=== PATIENT | female | born 1985 | race Caucasian/White ===

== ENCOUNTER 2019-06-06 20:11 | Observation (INO) | payer MEDICAID, SELFPAY ==
[2019-06-06 20:15] VITALS: BP 151/98; PULSE 125; RESP 26; TEMP 36.4; O2SAT 99
--- NOTE | 2019-06-06 20:39 | ED.GENADUL_ITS ---
Discharge Plan Disposition Condition: Fair Discharge Details Chief Complaint: Abd Prob Admit Date/Time: 06/07/19 01:29 Admit Provider: Agueda Dunne Attending Provider: Agueda Dunne Primary Care Provider: Nicole Jones ED Provider: Dawna Willis Discharge Instructions Activity:: Activity as Tolerated Equipment/Supplies:: No Equipment Needed Diet:: As Tolerated Discharge Orders Discharge Orders: Discharge Order (Routine); Ordered 06/07/19 Ordered By: Agueda Dunne Medical Decision Making Is a 33-year-old woman who has struggled with ovarian pain for several years. She is status post hysterectomy. Patient [facility] and began to have sharp severe right lower quadrant abdominal pain which doubled her over. Patient reports 1 hour of persistent pain which prompted her evaluation in the emergency room. Patient denies fevers or chills. She does report mild nausea associated with the pain but denies vomiting. Denies vaginal discharge or bleeding. Denies urinary urgency or frequency. Patient reports she has been struggling with lower abdominal pain for which she had a recent ultrasound on the fourth of this month. Patient reports ultrasound did reveal bilateral ovarian cysts the largest of approximately 4 cm was noted on the left. On exam patient has moderate right lower quadrant abdominal pain with palpation. Patient's appendix is still present. Labs were ordered. Morphine provided for patient's complaints of pain, in addition to Zofran for nausea Patient noted to have a moderate leukocytosis which is increased compared to the baseline labs we have present mild shift present. Patient presented quite tachycardic with a heart rate of 125. After IV fluid she did have some improvement in her heart rate into the high 90s. Patient CT was unremarkable for appendicitis however does reveal 2.5 cm ovarian cyst on the right with no associated fat stranding or obvious tubo-ovarian abscess. Patient required 2 additional doses of Morphine with mild control of her pain. Patient's pelvic exam reveals a vaginal pouch with mild white discharge with bilateral ovarian pain with palpation. Patient's exam is somewhat limited given the lack of her anatomy present. Cultures were obtained. Spoke with [employer] Dr. Dr. Dunne regarding patient's case and findings. She is offered admission to the patient for overnight observation given the persistence of her pain. Spoke with patient who consents to admission to the hospital for pain management and reevaluation with [facility] doctor. HPI General Date/Time Provider Initiated Documentation: 06/06/19 20:20 . HPI Narrative: 33-year-old patient presents for right lower quadrant abdominal pain which escalated in the last hour. Patient reports pain doubling her over. Patient reports known ovarian cysts. This pain feels similar. Patient reports she did have an ultrasound May 22 revealing bilateral ovarian cysts. Patient reports no fever, chills mild nausea due to pain no vomiting. Denies ill feeling. Patient reports she did have the the ultrasound as she is been struggling with lower abdominal discomfort. Patient reports minimal radiation to her back. No associated vaginal discharge or bleeding. Patient is status post hysterectomy which was done to help alleviate ovarian pain. Patient denies urinary urgency, frequency or dysuria. No other concerns or complaints Related Data Home Medications Medication Instructions Recorded Confirmed acetaminophen [Pain Relief] 2 tab PO PRN PRN 09/25/14 06/06/19 albuterol sulfate [Proventil HFA] 1 inh INHALATION PRN PRN 09/25/14 06/06/19 ibuprofen 800 mg PO TID PRN PRN 09/25/14 06/06/19 buprenorphine-naloxone [Suboxone] 12 mg PO DAILY 10/21/17 06/06/19 pantoprazole 40 mg PO DAILY 10/21/17 06/06/19 varenicline [Chantix] 1 mg PO DAILY 06/06/19 06/06/19 trazodone 50 mg PO QHS 06/07/19 06/07/19 Allergies Allergy/AdvReac Type Severity Reaction Status Date / Time doxycycline Allergy Swelling/Ed Unverified 06/06/19 20:21 brynn Penicillins Allergy Anaphylaxsi Unverified 06/06/19 20:21 s azithromycin AdvReac Nausea Unverified 06/06/19 20:21 calcium carbonate [From DHEA] AdvReac Swelling/Ed Unverified 06/06/19 20:21 brynn calcium phosphate,dibasic AdvReac Swelling/Ed Unverified 06/06/19 20:21 [From DHEA] brynn latex AdvReac Skin Rash Unverified 06/06/19 20:21 nitrofurantoin AdvReac muscles Unverified 06/06/19 20:21 [From Macrobid] stiffen up all over body nitrofurantoin AdvReac muscles Unverified 06/06/19 20:21 macrocrystalline stiffen up [From Macrobid] all over body prasterone (DHEA) [From DHEA] AdvReac Swelling/Ed Unverified 06/06/19 20:21 brynn silver AdvReac Skin Rash Unverified 06/06/19 20:21 [From Tegaderm AG Mesh] tramadol AdvReac Urinary Unverified 06/06/19 20:21 retention General Stated Complaint: [facility] [facility] JAN: 3 Review of Systems Review of Systems ROS Unobtainable: All systems reviewed & are unremarkable except as noted in HPI and below Constitutional Constitutional: Denies chills, Denies fever(s) and Denies headache(s) ENT Ears, Nose, Mouth, and Throat: Denies headache(s) Gastrointestinal Gastrointestinal: Reports abdominal pain, Denies diarrhea, Reports loose stools, Reports nausea and Denies vomiting Neurologic Neurologic: Denies headache(s) [facility] Medical History Asthma (Chronic) Bipolar disease, chronic (Acute) Patient has been hospitalized for suicidal ideation the past currently not taking any medications. Is on disability for mental health issues Chronic pelvic pain in female (Acute) S/P TVH at [facility] [place] 2015. Gabapentin 300 mg 3 times a day as needed Headache (Acute) Imitrex as needed Hearing loss (Acute) Right side conduction loss cholecystectomy treated with titanium insert History of opioid abuse (Acute) Take Suboxone 12 mg SL daily x3yrs. Weekly dosing given at [facility] in [facility] PTSD (post-traumatic stress disorder) (Acute) Currently not in counseling Right knee pain (Acute) Awaiting ACL reconstruction Tobacco use (Acute) Has used Chantix off-and-on. Surgical History (Updated 06/07/19 @ 01:56 by Agueda Dunne MD) H/O right knee surgery (Acute) H/O total vaginal hysterectomy (Acute) [facility] [place] 2015 for menorrhagia and dysmenorrhea. Ovaries conserved. Diagnosis adenomyosis History of cholecystectomy (Chronic) History of laparoscopy (Chronic) 2012. 6 cm right ovarian cyst drained History of tubal ligation (Chronic) [facility] Hx of tonsillectomy (Chronic) Social History (Updated 06/07/19 @ 01:58 by Agueda Dunne MD) Smoking/Tobacco Use Status: Current every day Tobacco Type: cigarettes Quit status: considering quitting Counseling given: provider counseling and other Details: Taking Chantix in order to quit Alcohol Intake: never Drug use: Current Sobriety Substance use type: former substance user Date of last use: 3 years. Suboxone 12 mg daily no relapses Household members: other Details: Has roommate. Boyfriend is named Brian. All 4 children adopted out. Number of Children: 4 current occupation: Unemployed. Receives disability for mental health issues Do you feel safe at home: Yes Do you feel safe in your relationship?: Yes Exam Narrative Exam Narrative: CONST: Healthy appearing patient, in no acute distress. Well hydrated. Alert and alert. NECK: Normal visual inspection. FROM. Trachea midline. No Midline tenderness. CHEST: Normal insepection of the chest. RESP: Normal respiratory effort. Speaking full sentences. No cough. No audible wheezing. No retractions. Breath sounds clear and equal bilaterally, no rhonchi or rales CARDIO: No JVD. No murmurs or rubs Abdomen; bowel sounds present in all 4 quadrants. Abdomen is soft, mild right lower quadrant tenderness present. No rebound or guarding : External exam is normal. Patient has some mild white vaginal discharge present, cervix is absent. Mild bilateral ovarian tenderness with palpation but no appreciable masses identified. Back; no CVA tenderness MUSCULOSKELETAL: Normal Gait. FROM of all extremities. SKIN: Normal. Dry. No rashes. NEURO: Alert and awake. Speech clear. PSYCH: Normal affect. Cooperative. Course Vital Signs Vital signs: Vital Signs Temperature 36.4 C L 06/06/19 20:15 Pulse 125 H 06/06/19 20:15 Respiratory Rate 26 H 06/06/19 20:15 Blood Pressure 151/98 H 06/06/19 20:15 Pulse Oximetry 99 06/06/19 20:15 Temperature 36.4 C L 06/06/19 20:15 Temperature Source Skin 06/06/19 20:15 Pulse 125 H 06/06/19 20:15 Respiratory Rate 26 H 06/06/19 20:15 Respiratory Effort 06/06/19 20:24 Blood Pressure 151/98 H 06/06/19 20:15 Blood Pressure Position Sitting 06/06/19 20:15 Pulse Oximetry 99 06/06/19 20:15 Oxygen Delivery Method Room Air 06/06/19 20:15 Oxygen Flow Rate 0 06/06/19 20:15 Pain Level 9 06/06/19 20:15
[2019-06-06 20:53] LABS: Bilirubin Negative (Negative); Blood Negative (Negative); Clarity Clear (Clear); Glucose Negative (Negative); Ketones Negative (Negative); Leukocyte Esterase Negative (Negative); Nitrite Negative (Negative); Urobilinogen 0.2 EU/dL (Up TO 0.2)
[2019-06-06] MEDS: Ondansetron 4 MG/2 ML VIAL IVP (21:09)
[2019-06-06 21:10] LABS: Abs Immature Grans 0.08 k/cumm (0.0-0.09); Absolute Eosinophil Count 0.21 k/cumm (0.0-0.7); Absolute Monocyte Count 0.74 k/cumm (0.11-0.7); Basophils % 0.2; Eosinophils % 1.1; HCT 38.6 % (36.0-46.0); HGB 13.2 g/dL (12.0-15.5); Immature Grans % 0.4; Lymphocytes % 24.9; Mean Corp. HGB Concentration 34.2 g/dL (32.0-36.0); Mean Corpuscular Hemoglobin 28.8 pg (27.0-33.0); Mean Corpuscular Volume 84.3 fL (80-95); Mean Platelet Volume 10.3 fL (8.0-11.0); Monocytes % 3.9; Neutrophils % 69.5; Platelet Count 140 x1000/uL (130-400); RBC 4.58 m/cumm (4.00-5.20); RBC Distribution Width 12.8 % (11.7-14.6); White Blood Cell Count 18.99 k/cumm (4.4-10.8)
[2019-06-06 21:12] LABS: Absolute Basophil Count 0.04 k/cumm (0.0-0.2); Absolute Lymphocyte Count 4.73 k/cumm (1.2-3.4)
[2019-06-06 21:23] LABS: ALT 14 U/L (14-59); AST 20 U/L (15-37); Albumin 3.6 g/dL (3.4-5.0); Alkaline Phosphatase 50 U/L (46-116); Anion Gap 10.3 mmol/L (3-11); BUN 13 mg/dL (7-18); Bilirubin, Total 0.3 mg/dL (0.2-1.0); CO2 26.7 mmol/L (21.0-32.0); CREATININE 0.75 mg/dL (0.55-1.02); Calcium 9.1 mg/dL (8.5-10.1); Chloride 102 mmol/L (98-107); Glucose 94 mg/dL (70-100); Sodium 139 mmol/L (136-145); Total Protein 7.4 g/dL (6.4-8.2)
--- NOTE | 2019-06-06 21:35 | DI.CT_ITS ---
EXAM: CT ABDOMEN PELVIS W CLINICAL HISTORY: pain TECHNIQUE: CT examination of the abdomen and pelvis was performed with bolus infusion of 100 cc of O mnipaque 350. COMPARISON: ABD PELVIS WITH CONTRAST from 07/01/2015 FINDINGS: Images obtained through the lung bases are unremarkable. Liver, spleen and pancreas appear normal. Gallbladder has been removed. No biliary dilatation seen. Adrenals and kidneys are unremarkable wi th an incidental presumed tiny left renal cyst. Abdominal aorta is of normal diameter and no major v ascular abnormality is seen. No significant abdominal wall hernia seen. No significant abdominal or pelvic adenopathy. Appendix is normal. No evidence of diverticulitis or bowel obstruction. There is a low-attenuation, 25 millimeter, right ovarian lesion consistent with cyst or dominant foll icle. No free fluid identified in the pelvis. IMPRESSION: No evidence of acute intra-abdominal process.
[2019-06-06] MEDS: Normal Saline 1,000 ML 1000 ML IV (21:58)
[2019-06-06] MEDS: Omnipaque 350 MG/ML 100 ML BTL IJ (21:59)
[2019-06-06 22:27] VITALS: O2SAT 99
--- NOTE | 2019-06-06 22:36 | DI.VRAD_ITS ---
PROCEDURE INFORMATION: Exam: CT Abdomen And Pelvis With Contrast Exam date and time: 06/06/2019 9:50 PM Clinical history: 33 years old, female; Abdominal pain; Localized; Lower TECHNIQUE: Imaging protocol: Computed tomography of the abdomen and pelvis with intravenous contrast. COMPARISON: CT ABD PELVIS WITH CONTRAST 07/01/2015 10:30 AM FINDINGS: Liver: Normal. No mass. Gallbladder and bile ducts: Status post cholecystectomy. Pancreas: Normal. No ductal dilation. Spleen: Normal. No splenomegaly. Adrenals: Normal. No mass. Kidneys and ureters: Normal. No hydronephrosis. Stomach and bowel: Unremarkable. No obstruction. No mucosal thickening. Appendix: No evidence of appendicitis. Intraperitoneal space: Unremarkable. No free air. No significant fluid collection. Vasculature: Unremarkable. No abdominal aortic aneurysm. Lymph nodes: Unremarkable. No enlarged lymph nodes. Bladder: Unremarkable as visualized. Reproductive: Status post hysterectomy. 2.5 cm right ovarian cyst suggested. Bones/joints: Unremarkable. No acute fracture. Soft tissues: Unremarkable. IMPRESSION: 2.5 cm right ovarian cyst suggested. Dictated and Authenticated by: Edi Lin MD. Ordering:AD Toney MD
[2019-06-06 22:44] VITALS: BP 125/79; PULSE 98; RESP 18; O2SAT 97
[2019-06-06 23:44] LABS: Lactate 0.6 mmol/L (0.6-1.4)
[2019-06-07 00:06] VITALS: BP 121/72; PULSE 105; RESP 18; O2SAT 97
--- NOTE | 2019-06-07 00:54 | NUR.NOTE ---
06/07/19 @ 0050-Dr Adele Chaves, [facility] bedside. Nursing Note:
[2019-06-07] MEDS: HYDROmorphone 2 MG/ML VIAL 1 MG IVP (01:17)
[2019-06-07 01:19] VITALS: BP 137/85; PULSE 99; RESP 22; O2SAT 98
[2019-06-07] MEDS: Ondansetron 4 MG/2 ML VIAL (01:28)
--- NOTE | 2019-06-07 01:36 | HPE_ITS ---
Date of service: 06/07/19 Time of Service: 01:36 Assessment and Plan Assessment and plan (1) Chronic pelvic pain in female: Status: Acute Assessment and plan: Will admit for pain control and will follow CBC and vital signs (2) Tobacco use: Status: Acute Assessment and plan: Chantix while hospitalized (3) Bipolar disease, chronic: Status: Acute Assessment and plan: Patient declines gabapentin which she uses at home but makes her sleepy so she does not use it consistently (4) History of opioid abuse: Status: Acute Assessment and plan: We will continue buprenorphine 12 mg sublingual daily History of Present Illness History of Present Illness Chief Complaint: Acute exacerbation of chronic pelvic pain Narrative: Patient is a 33-year-old female with a history of pelvic pain attributed to ovulatory discomfort who experienced a abrupt onset this afternoon that she reports brought me to my knees. She was at an outside event and proceeded to travel to [facility] she is the closest hospital. She normally receives her care at [facility]. In the emergency department she received IV morphine without significant improvement in her discomfort. Her pulse on presentation was in the 120 range and a CBC showed WBC of approximately 19,000. Lactate was normal. CT of the abdomen showed normal appendix and a 2.5 cm right ovarian cyst patient is status post hysterectomy. No evidence of pelvic abscess or pelvic masses on imaging. Decision was made to admit the patient for pain control and serial CBCs. Review of Systems Constitutional Constitutional: Reports difficulty sleeping (Trazodone as needed), Reports headache(s) and Reports weight gain (Has declined DepoProvera in the past secondary to weight gain) ENT Ears, Nose, Mouth, and Throat: Reports headache(s) Cardiovascular Cardiovascular: Reports system reviewed and no additional complaints, except as docu Respiratory Respiratory: Reports cough (Occasional) Genitourinary Genitourinary: Reports pelvic pain (Right greater than left side) Musculoskeletal Musculoskeletal: Reports arthralgias (Right knee joint) Integumentary/Breasts Skin/Breast: Reports system reviewed and no additional complaints, except as docu Neurologic Neurologic: Reports headache(s) Psychiatric Psychiatric: Reports anxiety, Reports depression and Reports other (States bipolar symptoms are stable. Has substance use counselor-[facility]) [facility] Medical History Asthma (Chronic) Bipolar disease, chronic (Acute) Patient has been hospitalized for suicidal ideation the past currently not taking any medications. Is on disability for mental health issues Chronic pelvic pain in female (Acute) [place] [facility] [place]. Gabapentin 300 mg 3 times a day as needed Headache (Acute) Imitrex as needed Hearing loss (Acute) Right side conduction loss cholecystectomy treated with titanium insert History of opioid abuse (Acute) Take Suboxone 12 mg SL daily x3yrs. Weekly dosing given at [facility] in [place] PTSD (post-traumatic stress disorder) (Acute) Currently not in counseling Right knee pain (Acute) Awaiting ACL reconstruction Tobacco use (Acute) Has used Chantix off-and-on. Surgical History (Updated 06/07/19 @ 01:56 by Agueda Dunne MD) H/O right knee surgery (Acute) H/O total vaginal hysterectomy (Acute) [facility] [place] for menorrhagia and dysmenorrhea. Ovaries conserved. Diagnosis adenomyosis History of cholecystectomy (Chronic) History of laparoscopy (Chronic) 2012. 6 cm right ovarian cyst drained History of tubal ligation (Chronic) [facility] Hx of tonsillectomy (Chronic) Social History (Updated 06/07/19 @ 01:58 by Agueda Dunne MD) Smoking/Tobacco Use Status: Current every day Tobacco Type: cigarettes Quit status: considering quitting Counseling given: provider counseling and other Details: Taking Chantix in order to quit Alcohol Intake: never Drug use: Current Sobriety Substance use type: former substance user Date of last use: 3 years. Suboxone 12 mg daily no relapses Household members: other Details: Has roommate. Boyfriend is named Brian. All 4 children adopted out. Number of Children: 4 current occupation: Unemployed. Receives disability for mental health issues Do you feel safe at home: Yes Do you feel safe in your relationship?: Yes Meds Home Medications and Allergies Home Medications Medication Instructions Recorded Confirmed Type acetaminophen [Pain Relief] 2 tab PO PRN PRN 09/25/14 06/06/19 History albuterol sulfate [Proventil HFA] 1 inh INHALATION PRN PRN 09/25/14 06/06/19 History ibuprofen 800 mg PO TID PRN PRN 09/25/14 06/06/19 History buprenorphine-naloxone [Suboxone] 12 mg PO DAILY 10/21/17 06/06/19 History pantoprazole 40 mg PO DAILY 10/21/17 06/06/19 History varenicline [Chantix] 1 mg PO DAILY 06/06/19 06/06/19 History Allergies Allergy/AdvReac Type Severity Reaction Status Date / Time doxycycline Allergy Swelling/Ed Unverified 06/06/19 20:21 brynn Penicillins Allergy Anaphylaxsi Unverified 06/06/19 20:21 s azithromycin AdvReac Nausea Unverified 06/06/19 20:21 calcium carbonate [From DHEA] AdvReac Swelling/Ed Unverified 06/06/19 20:21 brynn calcium phosphate,dibasic AdvReac Swelling/Ed Unverified 06/06/19 20:21 [From DHEA] brynn latex AdvReac Skin Rash Unverified 06/06/19 20:21 nitrofurantoin AdvReac muscles Unverified 06/06/19 20:21 [From Macrobid] stiffen up all over body nitrofurantoin AdvReac muscles Unverified 06/06/19 20:21 macrocrystalline stiffen up [From Macrobid] all over body prasterone (DHEA) [From DHEA] AdvReac Swelling/Ed Unverified 06/06/19 20:21 brynn silver AdvReac Skin Rash Unverified 06/06/19 20:21 [From Tegaderm AG Mesh] tramadol AdvReac Urinary Unverified 06/06/19 20:21 retention Exam Narrative Exam Narrative: Pelvic exam performed by TORY Mathias. No focal masses tenderness right greater than left side Const General: in distress moderate (Grimaces when moving in bed tender abdomen) and anxious (Tearful during parts of the exam) Nutritional Appearance: overweight Orientation: alert, awake and oriented x3 Neck Neck: normal visual inspection Resp Effort & Inspection: normal respiratory effort Auscultation: clear to auscultation bilaterally Cardio Rate: regular rate Rhythm: regular rhythm GI Inspection: normal to inspection Palpation: soft, no hepatosplenomegaly and tender in the LLQ and in the RLQ; with no rebound tenderness Percussion: normal to percussion General: No CVA tenderness External Female Exam: external appearance normal Bimanual Exam- Vagina & Uterus: other (Performed by PA) Back/Spine/Pelvis Back: No no CVA tenderness Pelvis: no pain with anterior-posterior compression Skin General skin exam: no rashes or lesions noted (Multiple tattoos) Extrem General: normal to inspection, full ROM and normal capillary refill Psych Appearance: well kempt Mental Status: mental status grossly normal Speech and Movement: speech and movement normal Mood: anxious mood and dysthymic mood Affect: sad and anxious affect Attitude: cooperative Thought Process: normal Thought Content: normal Insight: fair Results Labs Result diagrams: 06/06/19 21:00 06/06/19 21:00 Labs: Laboratory Results - last 24 hr 06/06/19 06/06/19 06/06/19 20:45 21:00 21:00 WBC 18.99 H RBC 4.58 Hgb 13.2 Hct 38.6 MCV 84.3 MCH 28.8 MCHC 34.2 RDW 12.8 Plt Count 140 MPV 10.3 Immature Gran % 0.4 Neutrophils % 69.5 Lymphocytes % 24.9 Monocytes % 3.9 Eosinophils % 1.1 Basophils % 0.2 Absolute Neutrophils 13.20 H Absolute Lymphocytes 4.73 H Absolute Monocytes 0.74 H Absolute Eosinophils 0.21 Absolute Basophils 0.04 Sodium 139 Potassium 4.0 Chloride 102 Carbon Dioxide 26.7 Anion Gap 10.3 BUN 13 Creatinine 0.75 Estimated GFR/1.73 m2 >= 60.00 Glucose 94 Lactate Calcium 9.1 Total Bilirubin 0.3 AST 20 ALT 14 Alkaline Phosphatase 50 Total Protein 7.4 Albumin 3.6 Urine Color Yellow Urine Clarity Clear Urine pH 6.0 Ur Specific [place] 1.010 Urine Protein Negative Urine Ketones Negative Urine Blood Negative Urine Nitrite Negative Urine Bilirubin Negative Urine Urobilinogen 0.2 Ur Leukocyte Esterase Negative Urine Glucose Negative 06/06/19 23:30 WBC RBC Hgb Hct MCV MCH MCHC RDW Plt Count MPV Immature Gran % Neutrophils % Lymphocytes % Monocytes % Eosinophils % Basophils % Absolute Neutrophils Absolute Lymphocytes Absolute Monocytes Absolute Eosinophils Absolute Basophils Sodium Potassium Chloride Carbon Dioxide Anion Gap BUN Creatinine Estimated GFR/1.73 m2 Glucose Lactate 0.6 Calcium Total Bilirubin AST ALT Alkaline Phosphatase Total Protein Albumin Urine Color Urine Clarity Urine pH Ur Specific [place] Urine Protein Urine Ketones Urine Blood Urine Nitrite Urine Bilirubin Urine Urobilinogen Ur Leukocyte Esterase Urine Glucose Last Vital Signs Temp 97.5 F L 06/06/19 20:15 Pulse 99 H 06/07/19 01:19 Resp 22 06/07/19 01:19 BP 137/85 06/07/19 01:19 Pulse Ox 98 06/07/19 01:19
[2019-06-07 02:23] VITALS: BP 132/68; PULSE 105; RESP 16; O2SAT 98
[2019-06-07 02:36] VITALS: BP 126/78; PULSE 102; RESP 16; TEMP 37.2; O2SAT 97
[2019-06-07] MEDS: Ibuprofen 600 MG TAB PO (03:12)
[2019-06-07] MEDS: Normal Saline Flush 10 ML SYR IVP (03:12)
[2019-06-07] MEDS: HYDROmorphone 2 MG TAB PO (03:12)
[2019-06-07] MEDS: Lactated Ringers 1,000 ML 125 ML IV ×2 (03:13→10:40)
[2019-06-07] MEDS: traZODone 50 MG TAB PO (03:38)
[2019-06-07 07:41] LABS: HGB 12.4 g/dL (12.0-15.5); Mean Corp. HGB Concentration 33.5 g/dL (32.0-36.0); Mean Corpuscular Hemoglobin 28.5 pg (27.0-33.0); Mean Corpuscular Volume 85.1 fL (80-95); Mean Platelet Volume 9.6 fL (8.0-11.0); Platelet Count 321 x1000/uL (130-400); RBC 4.35 m/cumm (4.00-5.20)
--- NOTE | 2019-06-07 11:11 | DSE_ITS ---
Date of service: 06/07/19 Time of Service: 11:11 DS: Diagnosis Discharge Diagnosis (1) Chronic pelvic pain in female: Status: Acute (2) Tobacco use: Status: Acute (3) Bipolar disease, chronic: Status: Acute (4) History of opioid abuse: Status: Acute Discharge Plan Disposition Patient Disposition: HOME Condition: Fair Discharge Details Chief Complaint: Abd Prob Reason For Visit: ACUTE PELVIC PAIN Admit Date/Time: 06/07/19 01:29 Admit Provider: Agueda Dunne Attending Provider: Agueda Dunne Primary Care Provider: Nicole Jones ED Provider: Dawna Willis Hospital Course Hospital Course: Patient was admitted through the [facility] emergency room early in the morning on 06/07/2019 with leukocytosis and right lower quadrant pain. Patient has a history of chronic pelvic pain and was noted to have a 2.5 cm ovarian cyst on abdominal/pelvic CT in the emergency department. She was afebrile at the time of admission. She had a T-max of 99 last evening and her WBC is trended downwards to approximately 12. Patient reports that her pain has improved that it is constant but she feels that on a scale of 1-10 it is now 4 or 5 which for her is tolerable. There is no indication that she has a pelvic abscess or a ovarian process occurring. She is agreeable towards discharge to home. She is currently without a permanent residence staying with roommates in [place], [place]. She reports that if it was not for a friend who offered to take her and she and her dog will be sleeping and her car. Home Meds and New Rx's Prescriptions: No Action ibuprofen 800 MG tablet 800 mg PO TID PRN PRNRF: 0 acetaminophen [Pain Relief] 500 MG tablet 2 tab PO PRN PRNRF: 0 albuterol sulfate [Proventil HFA] 1 PUFF HFA aerosol inhaler 1 inh Inhalation PRN PRNRF: 0 pantoprazole 40 MG tablet,delayed release (DR/EC) 40 mg PO DAILY RF: 0 buprenorphine-naloxone [Suboxone] 1 EACH film 12 mg PO DAILY RF: 0 Chantix 0.5 mg Tablet 1 mg PO DAILY RF: 0 trazodone 50 mg Tablet 50 mg PO QHS RF: 0 Discharge Instructions Additional Instructions: Call [phone] if you develop a temperature over 101 or worsening pelvic pain. You may use Motrin or Tylenol for your discomfort. You may follow-up with your primary care doctor as needed. I would limit her activities today resting and not perform any strenuous activities. I advised no intercourse until you are feeling better Activity:: Activity as Tolerated Equipment/Supplies:: No Equipment Needed Diet:: As Tolerated Discharge Orders Discharge Orders: Discharge Order (Routine); Ordered 06/07/19 Ordered By: Agueda Dunne DS: Summary Status at Discharge Functional status at discharge: independent ambulation Overall status at discharge: patient is progressing back to baseline Mental Status: mental status grossly normal Speech and Movement: speech and movement normal Mood: anxious mood and dysthymic mood Affect: anxious affect Time Spent with Patient providing and/or coordinating discharge services: Less than 30 minutes Exam Narrative Exam Narrative: Patient reports that she did not sleep well at night. Her pain has improved she did take the oral Dilaudid with some relief but not complete relief. She feels that which she would be all right to be at home discharged and agrees to follow-up by calling the security operations center operator or return to the emergency room in the event of change in her status. Temperature at the time of discharge 97 ?F. My overall impression is that her physical exam has improved she remains afebrile and her WBC is trending downwards. No evidence of a pelvic abscess. Const General: anxious and other (Sitting up in bed eating breakfast) Nutritional Appearance: obese Orientation: alert, awake and oriented x3 Resp Effort & Inspection: normal respiratory effort GI Inspection: normal to inspection Palpation: soft and tender (Far less tenderness than last evening no referred pain with palpation) in the RLQ Auscultation: normal bowel sounds General: deferred Skin General skin exam: no rashes or lesions noted Psych Appearance: grossly normal Mental Status: mental status grossly normal Speech and Movement: speech and movement normal Mood: anxious mood and dysthymic mood Affect: anxious affect DS: Data Vitals/I&O Vitals and I&O: Vital Signs Temperature 99.0 F 06/07/19 02:36 Temperature Source Skin 06/06/19 20:15 Pulse 102 H 06/07/19 02:36 Pulse Rhythm Regular 06/07/19 02:36 Respiratory Rate 16 06/07/19 02:36 Respiratory Effort Non-Labored 06/07/19 02:36 Respiratory Depth Normal 06/07/19 02:36 Respiratory Pattern Normal 06/07/19 02:36 Blood Pressure 126/78 06/07/19 02:36 Blood Pressure Position Sitting 06/06/19 20:15 Pulse Oximetry 97 06/07/19 02:36 Oxygen Delivery Method Room Air 06/07/19 02:36 Oxygen Flow Rate 0 06/07/19 02:36 Pain Level 8 06/07/19 03:12 Intake & Output 06/06/19 06/06/19 06/07/19 11:59 23:59 11:59 Intake Total 1000 / 1000 931.25 / 931.25 Balance 1000 / 1000 931.25 / 931.25 Weight 212 lb 0.015 oz 212 lb 0.015 oz Intake: IV 1000 / 1000 931.25 / 931.25 Data Completed and Pending Labs on day of discharge: Labs from last 24 hours 06/07/19 06/07/19 06/07/19 06:30 01:33 00:15 WBC 12.40 H D Cancelled RBC 4.35 Cancelled Hgb 12.4 Cancelled Hct 37.0 Cancelled MCV 85.1 Cancelled MCH 28.5 Cancelled MCHC 33.5 Cancelled RDW 13.0 Cancelled Plt Count 321 D Cancelled MPV 9.6 Cancelled Immature Gran % Neutrophils % Lymphocytes % Monocytes % Eosinophils % Basophils % Absolute Neutrophils Absolute Lymphocytes Absolute Monocytes Absolute Eosinophils Absolute Basophils Sodium Potassium Chloride Carbon Dioxide Anion Gap BUN Creatinine Estimated GFR/1.73 m2 Glucose Lactate Calcium Total Bilirubin AST ALT Alkaline Phosphatase Total Protein Albumin Serum HCG, Qual Urine Color Urine Clarity Urine pH Ur Specific Goehner Urine Protein Urine Ketones Urine Blood Urine Nitrite Urine Bilirubin Urine Urobilinogen Ur Leukocyte Esterase Urine Glucose Chlamydia DNA Probe Pending Chlamydia/GC DNA Source Pending N.gonorrhoeae DNA Probe Pending 06/06/19 06/06/19 06/06/19 23:30 21:00 21:00 WBC 18.99 H RBC 4.58 Hgb 13.2 Hct 38.6 MCV 84.3 MCH 28.8 MCHC 34.2 RDW 12.8 Plt Count 140 MPV 10.3 Immature Gran % 0.4 Neutrophils % 69.5 Lymphocytes % 24.9 Monocytes % 3.9 Eosinophils % 1.1 Basophils % 0.2 Absolute Neutrophils 13.20 H Absolute Lymphocytes 4.73 H Absolute Monocytes 0.74 H Absolute Eosinophils 0.21 Absolute Basophils 0.04 Sodium 139 Potassium 4.0 Chloride 102 Carbon Dioxide 26.7 Anion Gap 10.3 BUN 13 Creatinine 0.75 Estimated GFR/1.73 m2 >= 60.00 Glucose 94 Lactate 0.6 Calcium 9.1 Total Bilirubin 0.3 AST 20 ALT 14 Alkaline Phosphatase 50 Total Protein 7.4 Albumin 3.6 Serum HCG, Qual Urine Color Urine Clarity Urine pH Ur Specific Goehner Urine Protein Urine Ketones Urine Blood Urine Nitrite Urine Bilirubin Urine Urobilinogen Ur Leukocyte Esterase Urine Glucose Chlamydia DNA Probe Chlamydia/GC DNA Source N.gonorrhoeae DNA Probe 06/06/19 06/06/19 20:45 20:36 WBC RBC Hgb Hct MCV MCH MCHC RDW Plt Count MPV Immature Gran % Neutrophils % Lymphocytes % Monocytes % Eosinophils % Basophils % Absolute Neutrophils Absolute Lymphocytes Absolute Monocytes Absolute Eosinophils Absolute Basophils Sodium Potassium Chloride Carbon Dioxide Anion Gap BUN Creatinine Estimated GFR/1.73 m2 Glucose Lactate Calcium Total Bilirubin AST ALT Alkaline Phosphatase Total Protein Albumin Serum HCG, Qual Pending Urine Color Yellow Urine Clarity Clear Urine pH 6.0 Ur Specific Goehner 1.010 Urine Protein Negative Urine Ketones Negative Urine Blood Negative Urine Nitrite Negative Urine Bilirubin Negative Urine Urobilinogen 0.2 Ur Leukocyte Esterase Negative Urine Glucose Negative Chlamydia DNA Probe Chlamydia/GC DNA Source N.gonorrhoeae DNA Probe 06/06/19 23:30 Blood Blood Culture - Pending 06/06/19 23:15 Blood Blood Culture - Pending Preliminary micro results at discharge 06/06/19 23:30 Blood Culture - Pending Blood 06/06/19 23:15 Blood Culture - Pending Blood [facility] Medical History Asthma (Chronic) Bipolar disease, chronic (Acute) Patient has been hospitalized for suicidal ideation the past currently not taking any medications. Is on disability for mental health issues Chronic pelvic pain in female (Acute) S/P TVH at [facility] [place]. Gabapentin 300 mg 3 times a day as needed Headache (Acute) Imitrex as needed Hearing loss (Acute) Right side conduction loss cholecystectomy treated with titanium insert History of opioid abuse (Acute) Take Suboxone 12 mg SL daily x3yrs. Weekly dosing given at [facility] in [place] PTSD (post-traumatic stress disorder) (Acute) Currently not in counseling Right knee pain (Acute) Awaiting ACL reconstruction Tobacco use (Acute) Has used Chantix off-and-on. Surgical History (Updated 06/07/19 @ 01:56 by Agueda Dunne MD) H/O right knee surgery (Acute) H/O total vaginal hysterectomy (Acute) [facility] [place] for menorrhagia and dysmenorrhea. Ovaries conserved. Diagnosis adenomyosis History of cholecystectomy (Chronic) History of laparoscopy (Chronic) 2013. 6 cm right ovarian cyst drained History of tubal ligation (Chronic) [facility] Hx of tonsillectomy (Chronic) Social History (Updated 06/07/19 @ 01:58 by Agueda Dunne MD) Smoking/Tobacco Use Status: Current every day Tobacco Type: cigarettes Quit status: considering quitting Counseling given: provider counseling and other Details: Taking Chantix in order to quit Alcohol Intake: never Drug use: Current Sobriety Substance use type: former substance user Date of last use: 3 years. Suboxone 12 mg daily no relapses Household members: other Details: Has roommate. Boyfriend is named Brian. All 4 children adopted out. Number of Children: 4 current occupation: Unemployed. Receives disability for mental health issues Do you feel safe at home: Yes Do you feel safe in your relationship?: Yes
[2019-06-07 11:26] VITALS: BP 102/68; PULSE 84; RESP 14; TEMP 37; O2SAT 98
--- NOTE | 2019-06-07 17:43 | PDOC.CMDIS ---
LACE Index Scoring Tool - Questions: Length of Stay (in days): 1 Acuity (Admit via E.D.?): Yes E.D. Visits: 1 - Answers: Total Score: 5 Risk of Readmission: Low Risk Care Management Discharge Reason for Hospitalization: Acute pelvic pain Discharge Plan: Raquel will return home when medically cleared for discharge. No services needed. She will drive her own car. Patient/Family Education Needs: Discharge instructions and follow up appointments.
[2019-06-09 14:53] LABS: Chlamydia Result Negative (Negative); GC Result Negative (Negative); Specimen Description URINE
== END 2019-06-07 13:04 | disposition home or self-care (01) ==
LOC: ER 06-07 01:44 → MS 06-07 02:32
PROVIDERS: Admitting Provider Obstetrics & Gynecology Gynecology; Emergency Provider Physician Assistant; PCP Family Medicine; Visit Provider Obstetrics & Gynecology Gynecology
DX: R10.2 Pelvic and perineal pain (principal); G89.29 Other chronic pain; D72.829 Elevated white blood cell count, unspecified; B96.89 Other specified bacterial agents as the cause of diseases classified elsewhere; Z72.0 Tobacco use; F31.9 Bipolar disorder, unspecified; F11.20 Opioid dependence, uncomplicated
CPT/HCPCS: 36415; 80053; 85027; 87040; 87491; 87591; 96361; 96374; 96375; 96376; 99222; 99238; 99285; 74177; 81003; 83605; 84703; 85025; 87480; 87510; 87660; 99284; G0378; J2405; J3490

== ENCOUNTER 2019-06-08 18:55 | Observation (INO) | payer MEDICAID, SELFPAY ==
[2019-06-08 18:59] VITALS: BP 144/77; PULSE 107; RESP 18; TEMP 36.6; O2SAT 98
--- NOTE | 2019-06-08 19:20 | ED.GENADUL_ITS ---
Discharge Plan Disposition Patient Disposition: [facility] INPATIENT Condition: Stable Discharge Details Chief Complaint: INVENTORY CONTROL CLERK Clinical Impression: Lower abdominal pain Primary Care Provider: Nicole Jones ED Provider: Thomas Fry Home Meds and New Rx's Prescriptions: No Action ibuprofen 800 MG tablet 800 mg PO TID PRN PRNRF: 0 acetaminophen [Pain Relief] 500 MG tablet 2 tab PO PRN PRNRF: 0 albuterol sulfate [Proventil HFA] 1 PUFF HFA aerosol inhaler 1 inh Inhalation PRN PRNRF: 0 pantoprazole 40 MG tablet,delayed release (DR/EC) 40 mg PO DAILY RF: 0 buprenorphine-naloxone [Suboxone] 1 EACH film 12 mg PO DAILY RF: 0 Chantix 0.5 mg Tablet 1 mg PO DAILY RF: 0 trazodone 50 mg Tablet 50 mg PO QHS RF: 0 Medical Decision Making 33-year-old female presents from home. She has had ongoing right lower quadrant abdominal pain, subjective fever and chills since being discharged from the hospital yesterday. She initially presented to the emergency room early in the morning on 06/07/2019 with leukocytosis and right lower quadrant pain. Patient has a history of chronic pelvic pain and was noted to have a 2.5 cm ovarian cyst on abdominal/pelvic CT on that day. She was admitted to the hospital and discharged yesterday. She is chronically maintained on 12 mg of buprenorphine. She has had some pain control with use of Tylenol at home as well. Now returns to the ER in pain with blood pressure 144/77, pulse 107 but afebrile 36.6. Her white blood cell is improved at 10, hematocrit stable at 40. Chemistries reassuring. Patient with ongoing pain. She has yet to have an ultrasound at this institution but does have a history of chronic, frequent, recurrent ovarian cyst. Case discussed with Dr. Reyes. He recommends overnight MedSurg admission for observation, pain control, probable ultrasound in the morning. HPI General Mode of arrival: ambulatory . Date/Time Provider Initiated Documentation: 06/08/19 18:56 . Limitations to Documentation: no limitations . Information obtained by: patient . History of Present Illness 33 year old F presents to the emergency department with the chief complaint of Fever chills right abdominal pain, recurrent, described as similar to prior episodes, and is localized to the abdomen and right. Patient reports no radiation. Patient started experiencing this day(s) and it has been intermittent. No relieving factors improve symptom(s), No exacerbating factors reported . Patient notes no other symptoms.. Patient did receive the following treatments prior to arrival, none Related Data Home Medications Medication Instructions Recorded Confirmed acetaminophen [Pain Relief] 2 tab PO PRN PRN 09/25/14 06/08/19 albuterol sulfate [Proventil HFA] 1 inh INHALATION PRN PRN 09/25/14 06/08/19 ibuprofen 800 mg PO TID PRN PRN 09/25/14 06/08/19 buprenorphine-naloxone [Suboxone] 12 mg PO DAILY 10/21/17 06/08/19 pantoprazole 40 mg PO DAILY 10/21/17 06/08/19 varenicline [Chantix] 1 mg PO DAILY 06/06/19 06/08/19 trazodone 50 mg PO QHS 06/07/19 06/08/19 Allergies Allergy/AdvReac Type Severity Reaction Status Date / Time doxycycline Allergy Swelling/Ed Unverified 06/08/19 19:04 brynn Penicillins Allergy Anaphylaxsi Unverified 06/08/19 19:04 s azithromycin AdvReac Nausea Unverified 06/08/19 19:04 calcium carbonate [From DHEA] AdvReac Swelling/Ed Unverified 06/08/19 19:04 brynn calcium phosphate,dibasic AdvReac Swelling/Ed Unverified 06/08/19 19:04 [From DHEA] brynn latex AdvReac Skin Rash Unverified 06/08/19 19:04 nitrofurantoin AdvReac muscles Unverified 06/08/19 19:04 [From Macrobid] stiffen up all over body nitrofurantoin AdvReac muscles Unverified 06/08/19 19:04 macrocrystalline stiffen up [From Macrobid] all over body prasterone (DHEA) [From DHEA] AdvReac Swelling/Ed Unverified 06/08/19 19:04 brynn silver AdvReac Skin Rash Unverified 06/08/19 19:04 [From Tegaderm AG Mesh] tramadol AdvReac Urinary Unverified 06/08/19 19:04 retention General Stated Complaint: INVENTORY CONTROL CLERK JAN: 3 Review of Systems Review of Systems Narrative: Subjective fever and chills, nausea, poor p.o. intake, ongoing lower abdominal pain without vaginal discharge or bleeding. Status post hysterectomy. 6 systems reviewed and otherwise negative [facility] Medical History Asthma (Chronic) Bipolar disease, chronic (Acute) Patient has been hospitalized for suicidal ideation the past currently not taking any medications. Is on disability for mental health issues Chronic pelvic pain in female (Acute) [place] [facility] [place]. Gabapentin 300 mg 3 times a day as needed Headache (Acute) Imitrex as needed Hearing loss (Acute) Right side conduction loss cholecystectomy treated with titanium insert History of opioid abuse (Acute) Take Suboxone 12 mg SL daily x3yrs. Weekly dosing given at [facility] in [place] PTSD (post-traumatic stress disorder) (Acute) Currently not in counseling Right knee pain (Acute) Awaiting ACL reconstruction Tobacco use (Acute) Has used Chantix off-and-on. Surgical History (Updated 06/07/19 @ 01:56 by Agueda Dunne MD) H/O right knee surgery (Acute) H/O total vaginal hysterectomy (Acute) [facility] [place] for menorrhagia and dysmenorrhea. Ovaries conserved. Diagnosis adenomyosis History of cholecystectomy (Chronic) History of laparoscopy (Chronic) 2013. 6 cm right ovarian cyst drained History of tubal ligation (Chronic) [facility] Hx of tonsillectomy (Chronic) Social History (Updated 06/07/19 @ 01:58 by Agueda Dunne MD) Smoking/Tobacco Use Status: Current every day Tobacco Type: cigarettes Quit status: considering quitting Counseling given: provider counseling and other Details: Taking Chantix in order to quit Alcohol Intake: never Drug use: Current Sobriety Substance use type: former substance user Date of last use: 3 years. Suboxone 12 mg daily no relapses Household members: other Details: Has roommate. Boyfriend is named Brian. All 4 children adopted out. Number of Children: 4 current occupation: Unemployed. Receives disability for mental health issues Do you feel safe at home: Yes Do you feel safe in your relationship?: Yes Exam Narrative Exam Narrative: GEN: awake, alert, oriented 3. Pleasant, well groomed, interactive. HEAD: Normocephalic, atraumatic ENT: Mucous membranes moist, oropharynx unremarkable, External ear exam unremarkable EYES: PERRL, EOMI NECK: Full ROM, no NIKO, no menigismus CHEST/RESP: Nontender, clear to auscultation bilateral, no wheeze/rhonchi/rales CARDIOVASCULAR: RRR, no murmur, rub adelia. 2+ Rad pulse bilateral ABDOMEN: Soft, tender without rebound or guarding in the right lower quadrant, no mass. +Bowel sounds EXT: Full ROM, no edema, no rash Neuro: Grossly normal neurologic exam, conversant, interactive. Psych: Speech fluent, thoughts congruent, affect slightly anxious Course Vital Signs Vital signs: Vital Signs Temperature 36.6 C 06/08/19 18:59 Pulse 107 H 06/08/19 18:59 Respiratory Rate 18 06/08/19 18:59 Blood Pressure 144/77 H 06/08/19 18:59 Pulse Oximetry 98 06/08/19 18:59 Temperature 36.6 C 06/08/19 18:59 Temperature Source Skin 06/08/19 18:59 Pulse 107 H 06/08/19 18:59 Respiratory Rate 18 06/08/19 18:59 Respiratory Effort 06/08/19 19:05 Blood Pressure 144/77 H 06/08/19 18:59 Blood Pressure Position Sitting 06/08/19 18:59 Pulse Oximetry 98 06/08/19 18:59 Oxygen Delivery Method Room Air 06/08/19 18:59 Oxygen Flow Rate 0 06/08/19 18:59 Pain Level 10 06/08/19 19:05 Comment 06/08/19 18:59
[2019-06-08] MEDS: Ondansetron 4 MG/2 ML VIAL IVP ×3 (19:35→23:32)
[2019-06-08] MEDS: HYDROmorphone 2 MG/ML VIAL 1 MG IVP ×3 (19:35→23:31)
[2019-06-08] MEDS: Normal Saline 1,000 ML 150 ML IV (19:36)
[2019-06-08 19:39] LABS: Abs Immature Grans 0.02 k/cumm (0.0-0.09); Absolute Basophil Count 0.02 k/cumm (0.0-0.2); Absolute Eosinophil Count 0.06 k/cumm (0.0-0.7); Absolute Lymphocyte Count 3.05 k/cumm (1.2-3.4); Absolute Monocyte Count 0.49 k/cumm (0.11-0.7); Absolute Neutrophil Count 6.71 k/cumm (1.2-6.7); Basophils % 0.2; Eosinophils % 0.6; HGB 13.6 g/dL (12.0-15.5); Immature Grans % 0.2; Lymphocytes % 29.5; Mean Corpuscular Hemoglobin 28.6 pg (27.0-33.0); Mean Platelet Volume 9.2 fL (8.0-11.0); Monocytes % 4.7; Neutrophils % 64.8; Platelet Count 360 x1000/uL (130-400); RBC 4.76 m/cumm (4.00-5.20); RBC Distribution Width 12.8 % (11.7-14.6); White Blood Cell Count 10.35 k/cumm (4.4-10.8)
[2019-06-08 19:56] VITALS: BP 147/84; PULSE 102; RESP 16; TEMP 36.5; O2SAT 95
[2019-06-08 19:58] LABS: ALT 13 U/L (14-59); AST 14 U/L (15-37); Albumin 3.6 g/dL (3.4-5.0); Alkaline Phosphatase 57 U/L (46-116); Anion Gap 10.2 mmol/L (3-11); BUN 11 mg/dL (7-18); Bilirubin, Total 0.2 mg/dL (0.2-1.0); CO2 24.8 mmol/L (21.0-32.0); CREATININE 0.83 mg/dL (0.55-1.02); Calcium 8.5 mg/dL (8.5-10.1); Chloride 103 mmol/L (98-107); Glucose 111 mg/dL (70-100); Potassium 3.7 mmol/L (3.5-5.1); Sodium 138 mmol/L (136-145); Total Protein 7.4 g/dL (6.4-8.2)
[2019-06-08 20:10] LABS: Bilirubin Negative (Negative); Blood Negative (Negative); Clarity Clear (Clear); Glucose Negative (Negative); Ketones Negative (Negative); Leukocyte Esterase Negative (Negative); Nitrite Negative (Negative); Specific Gravity 1.015 (1.005-1.025); Urobilinogen 0.2 EU/dL (Up TO 0.2)
--- NOTE | 2019-06-08 21:10 | NUR.NOTE ---
Nursing Note: Pt reporting pain 10/10 accompanied by nausea. Provider aware, meds ordered.
[2019-06-08 21:27] VITALS: BP 120/80; PULSE 87; RESP 16; TEMP 37; O2SAT 97
[2019-06-08 21:40] VITALS: BP 127/73; PULSE 70; RESP 18; TEMP 36.8; O2SAT 98
[2019-06-08] MEDS: Lactated Ringers 1,000 ML 150 ML IV (22:33)
[2019-06-08] MEDS: traZODone 50 MG TAB PO (23:32)
[2019-06-09] MEDS: HYDROmorphone 2 MG/ML VIAL 1 MG IVP ×4 (02:01→13:44)
[2019-06-09] MEDS: Lactated Ringers 1,000 ML 150 ML IV ×2 (03:39→11:00)
[2019-06-09 04:30] VITALS: BP 112/62; PULSE 79; RESP 18; TEMP 36.9; O2SAT 98
--- NOTE | 2019-06-09 10:47 | INITIAL_ITS ---
Care Management Initial Assess REASON FOR HOSPITALIZATION:: Abdominal Pain PAST MEDICAL HISTORY/PAST SURGICAL HISTORY:: Asthma, bipolar disease, chronic pelvic pain in female, headache, hearing loss, hx of opioid abuse, PTSD, right knee pain, tobacco use, right knee surgery, total vaginal hysterectomy, cholecystectomy, laparoscopy, tubal ligation, tonsillectomy PREVIOUS FUNCTIONAL STATUS/SOCIAL/FAMILY SUPPORTS:: Raquel is currently staying with friends in [place], [place]. Her significant other, Des resides in [place], [place]. She previously recieved her care at [facility]. She is currently without a permanent residence staying with roommates in [place], [place]. She reports that if it was not for a friend who offered to take her and she and her dog will be sleeping and her car. She Has patient been provided with information about the portal?: No Did the patient sign up for the portal?: No CODE STATUS:: Full Code INSURANCE COVERAGE / FINANCIAL ISSUES:: Medicaid PRIMARY CARE PHYSICIAN:: Nicole Jones POTENTIAL DISCHARGE NEEDS:: Discussion around community based supports; possible referrals for attachment to increased services. Follow up appointments. PATIENT/FAMILY EDUCATION NEEDS:: Review community based supports, discharge instructions, Ask Me Three. ANTICIPATED BARRIERS TO DISCHARGE:: None identified. TRANSPORTATION:: RCT or with a friend. PLAN:: Raquel will return home when ready per MD. She will follow up with her PCP and plan of care as prescribed. Additional service supports explored with this keno writer/runner. She will transport via private vehicle with a friend or via RCT.
--- NOTE | 2019-06-09 11:00 | DI.US_ITS ---
EXAM: US PELVIS TRANSVAGINAL CLINICAL HISTORY: abdominal / pelvic pain TECHNIQUE: Ultrasound performed using standard protocol. Transabdominal and transvaginal studies w ere performed. COMPARISON: CT ABDOMEN PELVIS W from 06/06/2019 FINDINGS: Patient is status post hysterectomy. There is a simple appearing cyst versus dominant follicle in the right ovary measuring 2 cm. The left ovary is unremarkable. There is no evidence of torsion. N o free fluid is seen. IMPRESSION: 2 centimeter dominant follicle of the right ovary. No acute abnormality.
[2019-06-09] MEDS: Normal Saline Flush 10 ML SYR IVP ×2 (11:01→13:44)
[2019-06-09] MEDS: Ondansetron 4 MG/2 ML VIAL IVP (12:42)
--- NOTE | 2019-06-09 16:00 | CHAPLAIN ---
I introduced myself to Raquel and explained my role. She said she was not interested in speaking with me.
[2019-06-09 16:10] VITALS: BP 113/76; PULSE 83; RESP 15; TEMP 37.1; O2SAT 97
--- NOTE | 2019-06-09 17:15 | W.PM.HP.N ---
Date of service: 06/09/19 Time of Service: 09:00 Assessment and Plan Assessment and plan (1) Pelvic pain: Status: Acute Assessment and plan: The patient was managed well with pain medication overnight. We will obtain a pelvic ultrasound today. (2) H/O total vaginal hysterectomy: Status: Acute History of Present Illness History of Present Illness Chief Complaint: Pelvic pain Narrative: 33-year-old presented to the emergency department last evening with abdominal and pelvic pain. Patient previously been seen over the weekend with similar complaints and elevated white count. Her white count was normal on evaluation. She continued to have pain. She denies any fevers or chills. No abnormal vaginal discharge. Her surgical history significant for a TVH at [facility] [place] ago. She did retain her ovaries. She denies any cyclical component to her pain. She has no bowel or bladder dysfunction. No nausea or vomiting. Appetite has been normal. Review of Systems Review of Systems ROS Unobtainable: All systems reviewed & are unremarkable except as noted in HPI and below PFSH Medical History Asthma (Chronic) Bipolar disease, chronic (Acute) Patient has been hospitalized for suicidal ideation the past currently not taking any medications. Is on disability for mental health issues Chronic pelvic pain in female (Acute) S/P TVH at [facility] 2015. Gabapentin 300 mg 3 times a day as needed Headache (Acute) Imitrex as needed Hearing loss (Acute) Right side conduction loss cholecystectomy treated with titanium insert History of opioid abuse (Acute) Take Suboxone 12 mg SL daily x3yrs. Weekly dosing given at [facility] in [place] PTSD (post-traumatic stress disorder) (Acute) Currently not in counseling Right knee pain (Acute) Awaiting ACL reconstruction Tobacco use (Acute) Has used Chantix off-and-on. Surgical History (Updated 06/07/19 @ 01:56 by Agueda Dunne MD) H/O right knee surgery (Acute) H/O total vaginal hysterectomy (Acute) [facility] 2015 for menorrhagia and dysmenorrhea. Ovaries conserved. Diagnosis adenomyosis History of cholecystectomy (Chronic) History of laparoscopy (Chronic) 2012. 6 cm right ovarian cyst drained History of tubal ligation (Chronic) [facility] Hx of tonsillectomy (Chronic) Social History (Updated 06/07/19 @ 01:58 by Agueda Dunne MD) Smoking/Tobacco Use Status: Current every day Tobacco Type: cigarettes Quit status: considering quitting Counseling given: provider counseling and other Details: Taking Chantix in order to quit Alcohol Intake: never Drug use: Current Sobriety Substance use type: former substance user Date of last use: 3 years. Suboxone 12 mg daily no relapses Household members: other Details: Has roommate. Boyfriend is named Brian. All 4 children adopted out. Number of Children: 4 current occupation: Unemployed. Receives disability for mental health issues Do you feel safe at home: Yes Do you feel safe in your relationship?: Yes Meds Home Medications and Allergies Home Medications Medication Instructions Recorded Confirmed Type acetaminophen [Pain Relief] 2 tab PO PRN PRN 09/25/14 06/08/19 History albuterol sulfate [Proventil HFA] 1 inh INHALATION PRN PRN 09/25/14 06/08/19 History ibuprofen 800 mg PO TID PRN PRN 09/25/14 06/08/19 History buprenorphine-naloxone [Suboxone] 12 mg PO DAILY 10/21/17 06/08/19 History pantoprazole 40 mg PO DAILY 10/21/17 06/08/19 History Chantix 1 mg PO DAILY 06/06/19 06/08/19 History trazodone 50 mg PO QHS 06/07/19 06/08/19 History Allergies Allergy/AdvReac Type Severity Reaction Status Date / Time doxycycline Allergy Swelling/Ed Unverified 06/08/19 19:04 brynn Penicillins Allergy Anaphylaxsi Unverified 06/08/19 19:04 s azithromycin AdvReac Nausea Unverified 06/08/19 19:04 calcium carbonate [From DHEA] AdvReac Swelling/Ed Unverified 06/08/19 19:04 brynn calcium phosphate,dibasic AdvReac Swelling/Ed Unverified 06/08/19 19:04 [From DHEA] brynn latex AdvReac Skin Rash Unverified 06/08/19 19:04 nitrofurantoin AdvReac muscles Unverified 06/08/19 19:04 [From Macrobid] stiffen up all over body nitrofurantoin AdvReac muscles Unverified 06/08/19 19:04 macrocrystalline stiffen up [From Macrobid] all over body prasterone (DHEA) [From DHEA] AdvReac Swelling/Ed Unverified 06/08/19 19:04 brynn silver AdvReac Skin Rash Unverified 06/08/19 19:04 [From Tegaderm AG Mesh] tramadol AdvReac Urinary Unverified 06/08/19 19:04 retention Exam GI Other: Abdomen is soft and minimally tender. No rebound guarding or rigidity. No palpable masses. Results Labs Result diagrams: 06/08/19 19:30 06/08/19 19:30 Labs: Laboratory Results - last 24 hr 06/08/19 06/08/19 06/08/19 19:30 19:30 20:06 WBC 10.35 RBC 4.76 Hgb 13.6 Hct 40.0 MCV 84.0 MCH 28.6 MCHC 34.0 RDW 12.8 Plt Count 360 MPV 9.2 Immature Gran % 0.2 Neutrophils % 64.8 Lymphocytes % 29.5 Monocytes % 4.7 Eosinophils % 0.6 Basophils % 0.2 Absolute Neutrophils 6.71 H Absolute Lymphocytes 3.05 Absolute Monocytes 0.49 Absolute Eosinophils 0.06 Absolute Basophils 0.02 Sodium 138 Potassium 3.7 Chloride 103 Carbon Dioxide 24.8 Anion Gap 10.2 BUN 11 Creatinine 0.83 Estimated GFR/1.73 m2 >= 60.00 Glucose 111 H Calcium 8.5 Total Bilirubin 0.2 AST 14 L ALT 13 L Alkaline Phosphatase 57 Total Protein 7.4 Albumin 3.6 Urine Color Yellow Urine Clarity Clear Urine pH 6.0 Ur Specific [place] 1.015 Urine Protein Negative Urine Ketones Negative Urine Blood Negative Urine Nitrite Negative Urine Bilirubin Negative Urine Urobilinogen 0.2 Ur Leukocyte Esterase Negative Urine Glucose Negative Last Vital Signs Temp 98.8 F 06/09/19 16:10 Pulse 83 06/09/19 16:10 Resp 15 06/09/19 16:10 BP 113/76 06/09/19 16:10 Pulse Ox 97 06/09/19 16:10
--- NOTE | 2019-06-09 17:18 | DSE_ITS ---
DS: Diagnosis Discharge Diagnosis (1) Pelvic pain: Status: Acute (2) H/O total vaginal hysterectomy: Status: Acute Discharge Plan Disposition Patient Disposition: HOME Condition: Stable Discharge Details Chief Complaint: [employer] Clinical Impression: Lower abdominal pain Reason For Visit: ABDOMINAL PAIN Admit Date/Time: 06/08/19 20:32 Admit Provider: Praful Reyes Attending Provider: Praful Reyes Primary Care Provider: Nicole Jones ED Provider: Thomas Fry Hospital Course Hospital Course: 33-year-old admitted for evaluation of pelvic pain. The patient is status post TVH at [facility] for adenomyosis per her report. She has had several emergency department visits for pelvic pain predominantly on the right side. She was found to have a 2 cm ovarian cyst on CT. This was confirmed to be a simple appearing cyst on repeat ultrasound today. She had no fevers or chills. No changes in her appetite. Pain is well controlled throughout the day. She has not been on oral contraceptives for management of her ovarian cyst. It is uncertain whether this is an ovulatory cyst but I feel this is more likely. She is felt suitable for discharge and will follow-up in the clinic in 1 to 2 weeks. Home Meds and New Rx's Prescriptions: Continued ibuprofen 800 MG tablet 800 mg PO TID PRN PRNRF: 0 acetaminophen [Pain Relief] 500 MG tablet 2 tab PO PRN PRNRF: 0 albuterol sulfate [Proventil HFA] 1 PUFF HFA aerosol inhaler 1 inh Inhalation PRN PRNRF: 0 pantoprazole 40 MG tablet,delayed release (DR/EC) 40 mg PO DAILY RF: 0 buprenorphine-naloxone [Suboxone] 1 EACH film 12 mg PO DAILY RF: 0 Chantix 0.5 mg Tablet 1 mg PO DAILY RF: 0 trazodone 50 mg Tablet 50 mg PO QHS RF: 0 Discharge Instructions Activity:: Activity as Tolerated Equipment/Supplies:: No Equipment Needed Diet:: As Tolerated Discharge Orders Discharge Orders: Discharge Order (Routine); Ordered 06/09/19 Ordered By: Praful Reyes DS: Summary Status at Discharge Functional status at discharge: independent ambulation Overall status at discharge: patient is back to baseline Mental Status: mental status grossly normal Speech and Movement: speech and movement normal Mood: congruent mood Affect: normal affect Exam Psych Mental Status: mental status grossly normal Speech and Movement: speech and movement normal Mood: congruent mood Affect: normal affect DS: Data Vitals/I&O Vitals and I&O: Vital Signs Temperature 98.8 F 06/09/19 16:10 Temperature Source Tympanic 06/09/19 16:10 Pulse 83 06/09/19 16:10 Pulse Rhythm Regular 06/09/19 15:13 Respiratory Rate 15 06/09/19 16:10 Respiratory Effort Non-Labored 06/09/19 15:13 Respiratory Depth Normal 06/09/19 15:13 Respiratory Pattern Normal 06/09/19 15:13 Blood Pressure 113/76 06/09/19 16:10 Blood Pressure Position Sitting 06/08/19 18:59 Pulse Oximetry 97 06/09/19 16:10 Oxygen Delivery Method Room Air 06/09/19 16:10 Oxygen Flow Rate 0 06/09/19 16:10 Pain Level 7 06/09/19 16:10 Comment 06/09/19 04:30 Intake & Output 06/08/19 06/09/19 06/09/19 23:59 11:59 23:59 Intake Total 657.5 / 657.5 1759 / 176 Balance 657.5 / 657.5 1759 / 1759 Weight 212 lb 0.015 oz Intake: IV 657.5 / 657.5 1759 / 1759 Other: Urine Color Yellow Urine Appearance Clear Comment Patient voids to the bathroom independently Voiding Methods Toilet Data Completed and Pending Labs on day of discharge: Labs from last 24 hours 06/08/19 06/08/19 06/08/19 20:06 19:30 19:30 WBC 10.35 RBC 4.76 Hgb 13.6 Hct 40.0 MCV 84.0 MCH 28.6 MCHC 34.0 RDW 12.8 Plt Count 360 MPV 9.2 Immature Gran % 0.2 Neutrophils % 64.8 Lymphocytes % 29.5 Monocytes % 4.7 Eosinophils % 0.6 Basophils % 0.2 Absolute Neutrophils 6.71 H Absolute Lymphocytes 3.05 Absolute Monocytes 0.49 Absolute Eosinophils 0.06 Absolute Basophils 0.02 Sodium 138 Potassium 3.7 Chloride 103 Carbon Dioxide 24.8 Anion Gap 10.2 BUN 11 Creatinine 0.83 Estimated GFR/1.73 m2 >= 60.00 Glucose 111 H Calcium 8.5 Total Bilirubin 0.2 AST 14 L ALT 13 L Alkaline Phosphatase 57 Total Protein 7.4 Albumin 3.6 Urine Color Yellow Urine Clarity Clear Urine pH 6.0 Ur Specific [place] 1.015 Urine Protein Negative Urine Ketones Negative Urine Blood Negative Urine Nitrite Negative Urine Bilirubin Negative Urine Urobilinogen 0.2 Ur Leukocyte Esterase Negative Urine Glucose Negative PFSH Medical History Asthma (Chronic) Bipolar disease, chronic (Acute) Patient has been hospitalized for suicidal ideation the past currently not taking any medications. Is on disability for mental health issues Chronic pelvic pain in female (Acute) S/P TVH at [facility] 2015. Gabapentin 300 mg 3 times a day as needed Headache (Acute) Imitrex as needed Hearing loss (Acute) Right side conduction loss cholecystectomy treated with titanium insert History of opioid abuse (Acute) Take Suboxone 12 mg SL daily x3yrs. Weekly dosing given at [facility] in [place] PTSD (post-traumatic stress disorder) (Acute) Currently not in counseling Right knee pain (Acute) Awaiting ACL reconstruction Tobacco use (Acute) Has used Chantix off-and-on. Surgical History (Updated 06/07/19 @ 01:56 by Agueda Dunne MD) H/O right knee surgery (Acute) H/O total vaginal hysterectomy (Acute) [facility] 2015 for menorrhagia and dysmenorrhea. Ovaries conserved. Diagnosis adenomyosis History of cholecystectomy (Chronic) History of laparoscopy (Chronic) 2012. 6 cm right ovarian cyst drained History of tubal ligation (Chronic) [facility] Hx of tonsillectomy (Chronic) Social History (Updated 06/07/19 @ 01:58 by Agueda Dunne MD) Smoking/Tobacco Use Status: Current every day Tobacco Type: cigarettes Quit status: considering quitting Counseling given: provider counseling and other Details: Taking Chantix in order to quit Alcohol Intake: never Drug use: Current Sobriety Substance use type: former substance user Date of last use: 3 years. Suboxone 12 mg daily no relapses Household members: other Details: Has roommate. Boyfriend is named Brian. All 4 children adopted out. Number of Children: 4 current occupation: Unemployed. Receives disability for mental health issues Do you feel safe at home: Yes Do you feel safe in your relationship?: Yes
== END 2019-06-09 17:45 | disposition home or self-care (01) ==
LOC: ER 21:12 → MS 21:38
PROVIDERS: Admitting Provider Obstetrics & Gynecology; Emergency Provider Emergency Medicine; PCP Family Medicine; Visit Provider Obstetrics & Gynecology
DX: R10.2 Pelvic and perineal pain (principal); Z90.710 Acquired absence of both cervix and uterus; N83.291 Other ovarian cyst, right side
CPT/HCPCS: 36415; 80053; 96361; 96374; 96375; 96376; 99223; 99239; 99285; 76830; 76856; 81003; 85025; 99284; G0378; J2405

== ENCOUNTER 2019-09-01 14:25 | Emergency (ER) | payer MEDICAID, SELFPAY ==
[2019-09-01 14:30] VITALS: PULSE 108; RESP 16; O2SAT 97
[2019-09-01 15:19] VITALS: BP 132/76
--- NOTE | 2019-09-02 10:44 | ED.GENADUL_ITS ---
Discharge Plan Disposition Patient Disposition: HOME Condition: Good Discharge Details Chief Complaint: EarProblem Clinical Impression: Otitis media Primary Care Provider: Yudelka Cano ED Provider: Dawna Willis Home Meds and New Rx's Prescriptions: New clindamycin HCl 300 mg capsule 300 mg PO TID Qty: 30 RF: 0 No Action ibuprofen 800 MG tablet 800 mg PO TID PRN PRNRF: 0 acetaminophen [Pain Relief] 500 MG tablet 2 tab PO PRN PRNRF: 0 albuterol sulfate [Proventil HFA] 1 PUFF HFA aerosol inhaler 1 inh Inhalation PRN PRNRF: 0 gabapentin 800 mg Tablet 800 mg TID RF: 0 pantoprazole 40 MG tablet,delayed release (DR/EC) 40 mg PO DAILY RF: 0 buprenorphine-naloxone [Suboxone] 1 EACH film 12 mg PO DAILY RF: 0 Chantix 0.5 mg Tablet 1 mg PO DAILY RF: 0 trazodone 50 mg Tablet 50 mg PO QHS RF: 0 Discharge Instructions Instructions: Otitis Media (ED) Additional Instructions: Use Motrin or Tylenol for fever control if needed. Rest activities as tolerated. Continue Flonase. Stay well-hydrated by drinking plenty of fluids. Recheck with primary care doctor if not improving the next 3 to 5 days. Antibiotic as prescribed. Return for any worsening, concerns or alarming symptoms sooner if needed Discharge Data Discharge Date/Time-TO BE ENTERED AT DEPARTURE: 09/01/19 15:19 Medical Decision Making Is a 33-year-old patient presenting for complaints of bilateral ear pain. Ear pain began approximately 1 week ago now having onset in the last 2 days. On exam patient does have evidence of otitis media bilaterally. Patient's preference is antibiotic treatment at this time. Patient has tried Flonase for several days without relief of her symptoms. Encouraged additional conservative treatments. Patient is nontoxic-appearing with no associated findings consistent with mastoiditis or acute complications. Patient reports understanding of treatment plan, alarming signs and symptoms and need for recheck if lack of improvement. The patient was stable and requested discharge. Prior to discharge, my usual and customary return precautions were reviewed with the patient - this included follow-up instructions and reasons to return to the Emergency Department if conditions worsens, does not improve as expected, or other new concerns arise. HPI General Date/Time Provider Initiated Documentation: 09/01/19 14:27 . HPI Narrative: This is a 33-year-old patient presenting for bilateral ear complaints. Patient reports 1 week of right-sided ear pain now in the last few days developed left- sided ear pain. Patient reports mild nasal congestion sinus pressure. Patient denies significant headache or dizziness. Patient does report cough and cold symptoms specifically nasal congestion and minimal cough for the last week. Patient denies measured fever, chills, nausea, vomiting. Patient denies significant sore throat or voice change. Denies abdominal pain. Patient has been eating and drinking without difficulty. No urinary urgency, frequency or dysuria. Patient denies bowel changes. No drainage from the ears, no injury or trauma to ears. Denies significant hearing change. No other concerns or complaints at this time. Related Data Home Medications Medication Instructions Recorded Confirmed acetaminophen [Pain Relief] 2 tab PO PRN PRN 09/25/14 06/08/19 albuterol sulfate [Proventil HFA] 1 inh INHALATION PRN PRN 09/25/14 09/01/19 ibuprofen 800 mg PO TID PRN PRN 09/25/14 06/08/19 buprenorphine-naloxone [Suboxone] 12 mg PO DAILY 10/21/17 09/01/19 pantoprazole 40 mg PO DAILY 10/21/17 09/01/19 Chantix 1 mg PO DAILY 06/06/19 09/01/19 trazodone 50 mg PO QHS 06/07/19 09/01/19 clindamycin HCl 300 mg PO TID #30 cap 09/01/19 gabapentin 800 mg TID 09/01/19 09/01/19 Previous Rx's Medication Instructions Recorded clindamycin HCl 300 mg PO TID #30 cap 09/01/19 Allergies Allergy/AdvReac Type Severity Reaction Status Date / Time doxycycline Allergy Swelling/Ed Unverified 09/01/19 14:32 brynn Penicillins Allergy Anaphylaxsi Unverified 09/01/19 14:32 s azithromycin AdvReac Nausea Unverified 09/01/19 14:32 calcium carbonate [From DHEA] AdvReac Swelling/Ed Unverified 09/01/19 14:32 brynn calcium phosphate,dibasic AdvReac Swelling/Ed Unverified 09/01/19 14:32 [From DHEA] brynn latex AdvReac Skin Rash Unverified 09/01/19 14:32 nitrofurantoin AdvReac muscles Unverified 09/01/19 14:32 [From Macrobid] stiffen up all over body nitrofurantoin AdvReac muscles Unverified 09/01/19 14:32 macrocrystalline stiffen up [From Macrobid] all over body prasterone (DHEA) [From DHEA] AdvReac Swelling/Ed Unverified 09/01/19 14:32 brynn silver AdvReac Skin Rash Unverified 09/01/19 14:32 [From Tegaderm AG Mesh] tramadol AdvReac Urinary Unverified 09/01/19 14:32 retention General Stated Complaint: EarProblem JAN: 5 Review of Systems All systems reviewed & are unremarkable except as noted in HPI and below Constitutional Constitutional: Denies chills, Denies fatigue, Denies fever(s), Denies headache(s) and Denies malaise ENT Ears, Nose, Mouth, and Throat: Denies vertigo, Denies dizziness, Denies ear discharge, Reports otalgia, Denies headache(s), Reports nasal congestion, Denies sinus pain, Denies sinus pressure and Denies sore throat Cardiovascular Cardiovascular: Denies dyspnea and Denies dyspnea on exertion Respiratory Respiratory: Reports cough, Denies pain on inspiration, Denies pain with cough, Denies dyspnea, Denies dyspnea on exertion and Reports wheezing Gastrointestinal Gastrointestinal: Denies abdominal pain, Denies nausea and Denies vomiting Neurologic Neurologic: Denies vertigo, Denies dizziness and Denies headache(s) Endocrine Endocrine: Denies fatigue Allergic/Immunologic Allergic/Immunologic: Reports wheezing PFSH Medical History Asthma (Chronic) Bipolar disease, chronic (Acute) Patient has been hospitalized for suicidal ideation the past currently not taking any medications. Is on disability for mental health issues Chronic pelvic pain in female (Acute) S/P TVH at [facility] [place]. Gabapentin 300 mg 3 times a day as needed Headache (Acute) Imitrex as needed Hearing loss (Acute) Right side conduction loss cholecystectomy treated with titanium insert History of opioid abuse (Acute) Take Suboxone 12 mg SL daily x3yrs. Weekly dosing given at [facility] in [place] PTSD (post-traumatic stress disorder) (Acute) Currently not in counseling Right knee pain (Acute) Awaiting ACL reconstruction Tobacco use (Acute) Has used Chantix off-and-on. Surgical History (Updated 06/07/19 @ 01:56 by Agueda Dunne MD) H/O right knee surgery (Acute) H/O total vaginal hysterectomy (Acute) [facility] [place] for menorrhagia and dysmenorrhea. Ovaries conserved. Diagnosis adenomyosis History of cholecystectomy (Chronic) History of laparoscopy (Chronic) 2013. 6 cm right ovarian cyst drained History of tubal ligation (Chronic) [facility] Hx of tonsillectomy (Chronic) Social History Smoking/Tobacco Use Status: Current every day Tobacco Type: cigarettes Quit status: considering quitting Counseling given: provider counseling and other Details: Taking Chantix in order to quit Alcohol Intake: never Drug use: Current Sobriety Substance use type: former substance user Date of last use: 3 years. Suboxone 12 mg daily no relapses Household members: other Details: Has roommate. Boyfriend is named Brian. All 4 children adopted out. Number of Children: 4 current occupation: Unemployed. Receives disability for mental health issues Do you feel safe at home: Yes Do you feel safe in your relationship?: Yes Exam Narrative Exam Narrative: CONST: Healthy appearing patient, in no acute distress. Well hydrated. Alert and oriented. HENMT: Head nomocephalic, normal to inspection. Atraumatic. Hearing grossly normal. Patient with TM effusions bilaterally, patient with loss of landmarks on the left. Erythema associated. No mastoid bone tenderness bilaterally. EYES: General normal appearance. Alignment normal. Eyelids normal. Conjunctiva normal. NECK: Normal visual inspection. FROM. Trachea midline. No Midline tenderness. No cervical lymphadenopathy CHEST: Normal insepection of the chest. RESP: Normal respiratory effort. Speaking full sentences. No cough. No audible wheezing. No retractions. Breath sounds clear, full and equal bilaterally, no rales, rhonchi or wheezing. CARDIO: No JVD. No murmur, regular rate and rhythm Course Vital Signs Vital signs: Vital Signs Pulse 108 H 09/01/19 14:30 Respiratory Rate 16 09/01/19 14:30 Pulse Oximetry 97 09/01/19 14:30 Pulse 108 H 09/01/19 14:30 Respiratory Rate 16 09/01/19 14:30 Respiratory Effort 09/01/19 14:34 Blood Pressure 132/76 09/01/19 15:19 Pulse Oximetry 97 09/01/19 14:30 Pain Level 4 09/01/19 15:19
== END 2019-09-01 15:19 | disposition home or self-care (01) ==
PROVIDERS: Emergency Provider Physician Assistant; PCP Nurse Practitioner Family
DX: H66.93 Otitis media, unspecified, bilateral (principal)
CPT/HCPCS: 99283

== ENCOUNTER 2019-09-13 20:05 | Emergency (ER) | payer MEDICAID, SELFPAY ==
[2019-09-13 20:23] VITALS: BP 120/82; PULSE 112; RESP 18; TEMP 37.2; O2SAT 96
--- NOTE | 2019-09-13 21:03 | ED.GENADUL_ITS ---
Discharge Plan Disposition Patient Disposition: HOME Discharge Details Chief Complaint: EarProblem Clinical Impression: Acute pain of both ears Primary Care Provider: Yudelka Cano ED Provider: Chace Hoang Home Meds and New Rx's Prescriptions: Continued ibuprofen 800 MG tablet 800 mg PO TID PRN PRNRF: 0 acetaminophen [Pain Relief] 500 MG tablet 2 tab PO PRN PRNRF: 0 albuterol sulfate [Proventil HFA] 1 PUFF HFA aerosol inhaler 1 inh Inhalation PRN PRNRF: 0 gabapentin 800 mg Tablet 800 mg TID RF: 0 Lupron Depot (3 month) 11.25 mg Syringe Kit IM Q12W RF: 0 pantoprazole 40 MG tablet,delayed release (DR/EC) 40 mg PO DAILY RF: 0 buprenorphine-naloxone [Suboxone] 1 EACH film 12 mg PO DAILY RF: 0 Chantix 0.5 mg Tablet 1 mg PO DAILY RF: 0 trazodone 50 mg Tablet 100 mg PO QHS RF: 0 Discontinued clindamycin HCl 300 mg capsule 300 mg PO TID Qty: 30 RF: 0 Discharge Instructions Instructions: Earache (ED) Additional Instructions: Please follow-up with your ear, nose, throat specialist. Call tomorrow to schedule follow-up appointment. Please contact your primary care physician to arrange follow-up. Return to the ER for any worsening or new concerning symptoms. Referrals: Yuedlka Cano [Primary Care Provider] - Discharge Data Discharge Date/Time-TO BE ENTERED AT DEPARTURE: 09/13/19 21:55 Medical Decision Making 33-year-old female with history of intermittent ear infections in the past, prior remote inner ear surgery, here with bilateral ear pain right greater than left for the past 2 to 3 weeks, refractory to full course of clindamycin. No inflammatory changes on exam. Patient has not had any fever. She does have some tenderness over her mastoid sinuses bilaterally. CT of the temporal bones interpreted by radiology:IMPRESSION: 1. Small amount of nonspecific soft tissue or debris in the superior aspect of the left external auditory canal near the tympanic membrane. Recommend direct visualization. 2. Nonspecific punctate radiodensity in the left stapes footplate is of unclear clinical significance and may be postsurgical in etiology recommend clinical correlation. Right mastoid air cells normal with no mastoid effusions. Left mastoid air cell normal with no mastoid effusions. Results were discussed with the patient. Plan will be for her to follow-up with her nurse research. She understands importance of timely follow-up and will call tomorrow. I encouraged to return immediately for any worsening or new concerning symptoms. HPI General Mode of arrival: ambulatory . Date/Time Provider Initiated Documentation: 09/13/19 20:38 . Limitations to Documentation: no limitations . Information obtained by: patient . HPI Narrative: 33-year-old female with history of chronic intermittent ear infections, status post remote surgery to her inner ears, here with chief complaint of ear pain. Patient notes bilateral, right greater than left, ear pain for the past 2 weeks. Pain is persistent. Patient also notes dental pain that is been going on for weeks to months. She has chronic dental decay and there is plan and schedule for dental extractions. Patient was seen here on 09/01/2019 and diagnosed with otitis media and started on clindamycin. She completed full course of clindamycin without relief of pain. She has been using heat packs applied to her face and ears which seem to help her pain. Tylenol and ibuprofen has not helped her pain. Related Data Home Medications Medication Instructions Recorded Confirmed acetaminophen [Pain Relief] 2 tab PO PRN PRN 09/25/14 09/13/19 albuterol sulfate [Proventil HFA] 1 inh INHALATION PRN PRN 09/25/14 09/13/19 ibuprofen 800 mg PO TID PRN PRN 09/25/14 09/13/19 buprenorphine-naloxone [Suboxone] 12 mg PO DAILY 10/21/17 09/13/19 pantoprazole 40 mg PO DAILY 10/21/17 09/13/19 Chantix 1 mg PO DAILY 06/06/19 09/13/19 trazodone 100 mg PO QHS 06/07/19 09/13/19 gabapentin 800 mg TID 09/01/19 09/13/19 Lupron Depot (3 month) mg IM Q12W 09/13/19 Allergies Allergy/AdvReac Type Severity Reaction Status Date / Time doxycycline Allergy Swelling/Ed Unverified 09/01/19 14:32 brynn Penicillins Allergy Anaphylaxsi Unverified 09/01/19 14:32 s azithromycin AdvReac Nausea Unverified 09/01/19 14:32 calcium carbonate [From DHEA] AdvReac Swelling/Ed Unverified 09/01/19 14:32 brynn calcium phosphate,dibasic AdvReac Swelling/Ed Unverified 09/01/19 14:32 [From DHEA] brynn latex AdvReac Skin Rash Unverified 09/01/19 14:32 nitrofurantoin AdvReac muscles Unverified 09/01/19 14:32 [From Macrobid] stiffen up all over body nitrofurantoin AdvReac muscles Unverified 09/01/19 14:32 macrocrystalline stiffen up [From Macrobid] all over body prasterone (DHEA) [From DHEA] AdvReac Swelling/Ed Unverified 09/01/19 14:32 brynn silver AdvReac Skin Rash Unverified 09/01/19 14:32 [From Tegaderm AG Mesh] tramadol AdvReac Urinary Unverified 09/01/19 14:32 retention General Stated Complaint: EarProblem JAN: 4 Review of Systems Constitutional Constitutional: Denies chills, Denies fever(s) and Denies headache(s) ENT Ears, Nose, Mouth, and Throat: Reports as per HPI, Denies dysphagia, Denies di zziness, Reports otalgia, Denies headache(s), Denies neck mass, Denies neck pain, Denies sore throat and Denies throat swelling Gastrointestinal Gastrointestinal: Denies dysphagia Musculoskeletal Musculoskeletal: Denies neck pain Neurologic Neurologic: Denies dizziness and Denies headache(s) Allergic/Immunologic Allergic/Immunologic: Denies throat swelling PFSH Medical History Asthma (Chronic) Bipolar disease, chronic (Acute) Patient has been hospitalized for suicidal ideation the past currently not taking any medications. Is on disability for mental health issues Chronic pelvic pain in female (Acute) S/P TVH at [facility] [place] 2016. Gabapentin 300 mg 3 times a day as needed Headache (Acute) Imitrex as needed Hearing loss (Acute) Right side conduction loss cholecystectomy treated with titanium insert History of opioid abuse (Acute) Take Suboxone 12 mg SL daily x3yrs. Weekly dosing given at [facility] in [place] PTSD (post-traumatic stress disorder) (Acute) Currently not in counseling Right knee pain (Acute) Awaiting ACL reconstruction Tobacco use (Acute) Has used Chantix off-and-on. Surgical History H/O right knee surgery (Acute) H/O total vaginal hysterectomy (Acute) [facility] [place] 2016 for menorrhagia and dysmenorrhea. Ovaries conserved. Diagnosis adenomyosis History of cholecystectomy (Chronic) History of laparoscopy (Chronic) 2013. 6 cm right ovarian cyst drained History of tubal ligation (Chronic) [facility] Hx of tonsillectomy (Chronic) Social History Smoking/Tobacco Use Status: Current every day Tobacco Type: cigarettes Quit status: considering quitting Counseling given: provider counseling and other Details: Taking Chantix in order to quit Alcohol Intake: never Drug use: Current Sobriety Substance use type: former substance user Date of last use: 3 years. Suboxone 12 mg daily no relapses Household members: other Details: Has roommate. Boyfriend is named Brian. All 4 children adopted out. Number of Children: 4 current occupation: Unemployed. Receives disability for mental health issues Do you feel safe at home: Yes Do you feel safe in your relationship?: Yes Exam Const General: cooperative and no acute distress HENMT Head: normocephalic Ears: external ears normal, TM normal on the right, no periauricular adenopathy, mastoid abnormal (tender bilateral, no inflammation ), no periauricular adenopathy and TM abnormal scarred on the left; not bulging, not bullous, not with effusion, not erythematous and not perforated General nose exam: external nose normal Mouth: moist mucous membranes Teeth and gingiva: caries, poor dentition and other (no fluctuance) Throat: posterior oropharynx normal Eyes Conjunctivae: normal conjunctivae Sclera: normal sclerae Neck Neck: trachea midline and supple Lymphatic: no lymphadenopathy noted Cardio Rate: regular rate and not tachycardic Rhythm: regular rhythm Skin General skin exam: no rashes or lesions noted Neuro General: alert, awake and tone normal Course Vital Signs Vital signs: Vital Signs Temperature 37.2 C 09/13/19 20:23 Pulse 112 H 09/13/19 20:23 Respiratory Rate 18 09/13/19 20:23 Blood Pressure 120/82 09/13/19 20:23 Pulse Oximetry 96 09/13/19 20:23 Temperature 37.2 C 09/13/19 20:23 Temperature Source Skin 09/13/19 20:23 Pulse 112 H 09/13/19 20:23 Respiratory Rate 18 09/13/19 20:23 Respiratory Effort 09/13/19 20:14 Blood Pressure 120/82 09/13/19 20:23 Pulse Oximetry 96 09/13/19 20:23 Oxygen Delivery Method Room Air 09/13/19 20:23 Oxygen Flow Rate 0 09/13/19 20:23
--- NOTE | 2019-09-13 21:13 | DI.CT_ITS ---
EXAM: CT TEMPORAL BONE WO CLINICAL HISTORY: inner ear pain, R>L 2 weeks, prior ear infection TECHNIQUE: Noncontrast COMPARISON: HEAD WITHOUT CONTRAST from 10/21/2017 FINDINGS: There is no evidence of fracture. The sinuses are clear. The mastoid air cells are clear. The orb its are unremarkable. There is small amount of the debris versus cerumen in the external auditory ca nal on the left. There is no evidence of soft tissue abscess. IMPRESSION: Negative CT of the temporal bones.
--- NOTE | 2019-09-13 21:52 | DI.VRAD_ITS ---
PROCEDURE INFORMATION: Exam: CT Temporal Bones Without Contrast. Exam date and time: 09/13/2019 9:17 PM Age: 33 years old Clinical indication: Patient HX: Ear pain for 2 weeks with prior ear infection TECHNIQUE: Imaging protocol: Computed tomography images of the temporal bones without contrast. Radiation optimization: All CT scans at this facility use at least one of these dose optimization techniques: automated exposure control; mA and/or kV adjustment per patient size (includes targeted exams where dose is matched to clinical indication); or iterative reconstruction. COMPARISON: CT HEAD WITHOUT CONTRAST 10/21/2017 6:22 PM FINDINGS: Right inner ear: Normal. Right ossicles and middle ear: Normal. Right facial nerve canal: Normal. Right external auditory canal: Normal. Right carotid canal: Normal. Right jugular foramen: Right mastoid air cells: Normal. No mastoid effusions. Left inner ear: Normal. Left ossicles and middle ear: Nonspecific punctate radiodensity along the left stapes footplate. Left facial nerve canal: Normal. Left external auditory canal: Small amount of soft tissue/debris superior aspect of the external auditory canal near the tympanic membrane. Left carotid canal: Normal. Left jugular foramen: Normal Left mastoid air cells: Normal. No mastoid effusions. IMPRESSION: 1. Small amount of nonspecific soft tissue or debris in the superior aspect of the left external auditory canal near the tympanic membrane. Recommend direct visualization. 2. Nonspecific punctate radiodensity in the left stapes footplate is of unclear clinical significance and may be postsurgical in etiology recommend clinical correlation. Dictated and Authenticated by: Smith Murguia MD. Ordering:MARTHA Mas MD
--- NOTE | 2019-09-13 21:59 | NUR.NOTE ---
Discharge instructions reviewed with verbal understanding. aware to f/u with pcp and ENT. reports PCP appt tomorrow. States tkaing ibuprofen/acetaminophen at home, using heating pad. encouraged to continue same. Ambulated to exit with steady gait.
== END 2019-09-13 21:55 | disposition home or self-care (01) ==
PROVIDERS: Emergency Provider Student in an Organized Health Care Education/Training Program; PCP Nurse Practitioner Family
DX: H92.03 Otalgia, bilateral (principal); K08.89 Other specified disorders of teeth and supporting structures
CPT/HCPCS: 99284; 70480

== ENCOUNTER 2019-09-23 22:21 | Emergency (ER) | payer MEDICAID, SELFPAY ==
--- NOTE | 2019-09-23 22:28 | W.ED.GENAD ---
Discharge Plan Disposition Patient Disposition: HOME Condition: Fair Discharge Details Chief Complaint: RespSymp Clinical Impression: Flu-like symptoms Primary Care Provider: Yudelka Cano ED Provider: Sabi Aguilar Home Meds and New Rx's Prescriptions: New oseltamivir [Tamiflu] 75 mg capsule 75 mg PO BID Qty: 8 RF: 0 Continued ibuprofen 800 MG tablet 800 mg PO TID PRN PRNRF: 0 acetaminophen [Pain Relief] 500 MG tablet 2 tab PO PRN PRNRF: 0 albuterol sulfate [Proventil HFA] 1 PUFF HFA aerosol inhaler 1 inh Inhalation PRN PRNRF: 0 gabapentin 800 mg Tablet 800 mg TID RF: 0 Lupron Depot (3 month) 11.25 mg Syringe Kit IM Q12W RF: 0 pantoprazole 40 MG tablet,delayed release (DR/EC) 40 mg PO DAILY RF: 0 buprenorphine-naloxone [Suboxone] 1 EACH film 12 mg PO DAILY RF: 0 Chantix 0.5 mg Tablet 1 mg PO DAILY RF: 0 trazodone 50 mg Tablet 100 mg PO QHS RF: 0 Discharge Instructions Instructions: Oseltamivir (By mouth), Influenza (ED) Additional Instructions: Encourage water intake. Tylenol and/or Ibuprofen as needed for discomfort. Tamiflu as prescribed. If you develop difficulty breathing, shortness of breath or other new/worsening symptoms please seek care urgently once again. Please follow up with primary care as needed for discomfort. Referrals: Yudelka Cano [Primary Care Provider] - Discharge Data Discharge Date/Time-TO BE ENTERED AT DEPARTURE: 09/24/19 00:50 Medical Decision Making Patient is a 34-year-old female presents today with chief complaint of flulike illness. She reports that she became sick initially 3 days ago. States she has had flu positive contacts in recent weeks. Reports that she is currently on Tamiflu, prophylactic dosing. States that despite this, she has been developing cough, fevers, chills, general malaise, fatigue and nausea. Vomited x2 today. Denies any recent travel. No recent change in medications. Denies any chest pain or shortness of breath. No abdominal pain. No change in bowel or bladder habits. On exam, patient is resting comfortably. She is noted to be tach cardiac on exam, heart rate of 124. She is currently afebrile. Lungs are clear, abdomen is benign. We are unable to obtain a rapid flu at this time, only able to obtain send out flu testing. Patient's history and exam is most consistent with influenza. Patient is tolerating oral hydration here after ODT Zofran. Heart rate is down from 124-110. While this is still tachycardic, patient is appearing improved and is requesting discharge. We will change her Tamiflu dosing to twice daily dosing x5 days. A prescription was given for this. I encouraged hydration. Tylenol and ibuprofen as needed for discomfort. I did offer a prescription for Zofran but patient declined stating that she has Phenergan at home that she finds quite helpful. She is given return precautions. I have asked that she follow-up with primary care in 1 week. All the questions and concerns were addressed she is agreement this plan. HPI General Mode of arrival: ambulatory. Date/Time Provider Initiated Documentation: 09/23/19 22:27. Limitations to Documentation: no limitations. Information obtained by: patient and RN notes reviewed. History of Present Illness 34 year old F presents to the emergency department with the chief complaint of flu like illness, described as moderate, with intensity rated at 5 (body aches). Quality is described as aching, Patient started experiencing this day(s) (3) and it has been constant. No relieving factors improve symptom(s), No exacerbating factors reported . Patient notes cough, diaphoresis, fever/chills, loss of appetite and nausea/vomiting (vomiting x 2); denies chest pain, headaches, rash, shortness of breath and weakness. Patient did receive the following treatments prior to arrival, NSAID and other (tylenol) Related Data Home Medications Medication Instructions Recorded Confirmed acetaminophen [Pain Relief] 2 tab PO PRN PRN 09/25/14 09/23/19 albuterol sulfate [Proventil HFA] 1 inh INHALATION PRN PRN 09/25/14 09/23/19 ibuprofen 800 mg PO TID PRN PRN 09/25/14 09/23/19 buprenorphine-naloxone [Suboxone] 12 mg PO DAILY 10/21/17 09/23/19 pantoprazole 40 mg PO DAILY 10/21/17 09/23/19 Chantix 1 mg PO DAILY 06/06/19 09/13/19 trazodone 100 mg PO QHS 06/07/19 09/23/19 gabapentin 800 mg TID 09/01/19 09/23/19 Lupron Depot (3 month) mg IM Q12W 09/13/19 oseltamivir [Tamiflu] 75 mg PO BID #8 cap 09/24/19 Previous Rx's Medication Instructions Recorded oseltamivir [Tamiflu] 75 mg PO BID #8 cap 09/24/19 Allergies Allergy/AdvReac Type Severity Reaction Status Date / Time doxycycline Allergy Swelling/Ed Unverified 09/01/19 14:32 brynn Penicillins Allergy Anaphylaxsi Unverified 09/01/19 14:32 s azithromycin AdvReac Nausea Unverified 09/01/19 14:32 calcium carbonate [From DHEA] AdvReac Swelling/Ed Unverified 09/01/19 14:32 brynn calcium phosphate,dibasic AdvReac Swelling/Ed Unverified 09/01/19 14:32 [From DHEA] brynn ketorolac AdvReac Nausea Unverified 09/23/19 22:39 latex AdvReac Skin Rash Unverified 09/01/19 14:32 nitrofurantoin AdvReac muscles Unverified 09/01/19 14:32 [From Macrobid] stiffen up all over body nitrofurantoin AdvReac muscles Unverified 09/01/19 14:32 macrocrystalline stiffen up [From Macrobid] all over body prasterone (DHEA) [From DHEA] AdvReac Swelling/Ed Unverified 09/01/19 14:32 brynn silver AdvReac Skin Rash Unverified 09/01/19 14:32 [From Tegaderm AG Mesh] tramadol AdvReac Urinary Unverified 09/01/19 14:32 retention General JAN: 4 Review of Systems Constitutional Constitutional: Reports as per HPI, Reports fatigue, Reports fever(s) and Denies headache(s) Eyes Eyes: Reports as per HPI, Denies eye discharge and Denies irritation ENT Ears, Nose, Mouth, and Throat: Reports as per HPI and Denies headache(s) Cardiovascular Cardiovascular: Reports as per HPI, Denies chest pain and Denies dyspnea Respiratory Respiratory: Reports as per HPI and Denies dyspnea Gastrointestinal Gastrointestinal: Reports as per HPI, Denies abdominal pain, Denies change in bowel habits, Denies change in stool character, Reports nausea and Reports vomiting Integumentary/Breasts Skin/Breast: Reports as per HPI and Denies rash Neurologic Neurologic: Reports as per HPI and Denies headache(s) Endocrine Endocrine: Reports fatigue PFSH Medical History Asthma (Chronic) Bipolar disease, chronic (Acute) Patient has been hospitalized for suicidal ideation the past currently not taking any medications. Is on disability for mental health issues Chronic pelvic pain in female (Acute) S/P TVH at [facility] [place] 2015. Gabapentin 300 mg 3 times a day as needed Headache (Acute) Imitrex as needed Hearing loss (Acute) Right side conduction loss cholecystectomy treated with titanium insert History of opioid abuse (Acute) Take Suboxone 12 mg SL daily x3yrs. Weekly dosing given at [facility] in [place] PTSD (post-traumatic stress disorder) (Acute) Currently not in counseling Right knee pain (Acute) Awaiting ACL reconstruction Tobacco use (Acute) Has used Chantix off-and-on. Surgical History H/O right knee surgery (Acute) H/O total vaginal hysterectomy (Acute) [facility] [place] 2015 for menorrhagia and dysmenorrhea. Ovaries conserved. Diagnosis adenomyosis History of cholecystectomy (Chronic) History of laparoscopy (Chronic) 2013. 6 cm right ovarian cyst drained History of tubal ligation (Chronic) [facility] Hx of tonsillectomy (Chronic) Social History Smoking/Tobacco Use Status: Current every day Tobacco Type: cigarettes Quit status: considering quitting Counseling given: provider counseling and other Details: Taking Chantix in order to quit Alcohol Intake: never Drug use: Current Sobriety Substance use type: former substance user Date of last use: 3 years. Suboxone 12 mg daily no relapses Household members: other Details: Has roommate. Boyfriend is named Brian. All 4 children adopted out. Number of Children: 4 current occupation: Unemployed. Receives disability for mental health issues Do you feel safe at home: Yes Do you feel safe in your relationship?: Yes Exam Const General: cooperative, healthy appearing, no acute distress, well developed, well groomed and ill appearing acutely Nutritional Appearance: well nourished and obese Orientation: alert and awake [facility] Head: normal to inspection, normocephalic and atraumatic Ears: hearing grossly normal bilaterally, external ears normal and TM's normal bilaterally General nose exam: external nose normal and nares normal Face and sinus: normal facial exam, sinuses nontender and face symmetric Mouth: oral mucosae normal, lip normal, tongue normal, oropharynx normal and moist mucous membranes Teeth and gingiva: dentition normal Throat: posterior oropharynx abnormal (erythema), tonsils normal and uvula midline Eyes General: appearance normal, both eyes and all related structures Neck Neck: normal visual inspection, full ROM, no lymphadenopathy and no meningeal signs Resp Effort & Inspection: normal respiratory effort, able to speak in complete sentences and no respiratory distress Auscultation: clear to auscultation bilaterally, no rales, no rhonchi and no wheezes Cardio Rate: regular rate Rhythm: regular rhythm Heart Sounds: S1 normal and S2 normal GI Inspection: normal to inspection Palpation: soft, not firm, no guarding, not rigid and nontender Percussion: normal to percussion Auscultation: normal bowel sounds Skin General skin exam: no rashes or lesions noted Neuro General: alert and awake Cognition: normal cognition Speech: speech normal Gait: normal gait Psych Appearance: grossly normal and well kempt Mental Status: mental status grossly normal Speech and Movement: speech and movement normal
[2019-09-23 22:34] VITALS: BP 135/82; PULSE 124; RESP 18; TEMP 37.5; O2SAT 94
[2019-09-23] MEDS: Ondansetron O.D.T. 4 MG TABEF PO (23:21)
[2019-09-23 23:41] VITALS: PULSE 110
[2019-09-24 00:46] VITALS: BP 135/82; PULSE 110; RESP 18; TEMP 37.5; O2SAT 97
[2019-09-24] MEDS: Oseltamivir 75 MG CAP PO (00:46)
== END 2019-09-24 00:50 | disposition home or self-care (01) ==
PROVIDERS: Emergency Provider Physician Assistant; PCP Nurse Practitioner Family
DX: J10.1 Influenza due to other identified influenza virus with other respiratory manifestations (principal); R05 Cough; R11.0 Nausea
CPT/HCPCS: 87449; 87631; 99283

== ENCOUNTER 2019-10-06 20:04 | Emergency (ER) | payer MEDICAID, SELFPAY ==
[2019-10-06 20:07] VITALS: BP 135/117; PULSE 117; RESP 18; TEMP 36.4; O2SAT 97
--- NOTE | 2019-10-06 20:28 | ED.GENADUL_ITS ---
Discharge Plan Disposition Patient Disposition: HOME Condition: Stable Discharge Details Chief Complaint: Orthopedic Clinical Impression: Left elbow tendonitis, Muscle spasm Primary Care Provider: Yudelka Cano ED Provider: Emperatriz Mcnamara Home Meds and New Rx's Prescriptions: Continued ibuprofen 800 MG tablet 800 mg PO TID PRN PRNRF: 0 acetaminophen [Pain Relief] 500 MG tablet 2 tab PO PRN PRNRF: 0 albuterol sulfate [Proventil HFA] 1 PUFF HFA aerosol inhaler 1 inh Inhalation PRN PRNRF: 0 gabapentin 800 mg Tablet 800 mg TID RF: 0 Lupron Depot (3 month) 11.25 mg Syringe Kit IM Q12W RF: 0 pantoprazole 40 MG tablet,delayed release (DR/EC) 40 mg PO DAILY RF: 0 buprenorphine-naloxone [Suboxone] 1 EACH film 12 mg PO DAILY RF: 0 Chantix 0.5 mg Tablet 1 mg PO DAILY RF: 0 trazodone 50 mg Tablet 100 mg PO QHS RF: 0 buspirone 15 mg Tablet 15 mg RF: 0 Discharge Instructions Instructions: Tendinitis (ED), Muscle Spasm (ED) Additional Instructions: Rest, ice and elevate left elbow as much as possible. Alternate tylenol and motrin as needed and directed for pain. Wear the Jomar wrap for compression which can help with pain. Follow-up with your scheduled appoint with your primary care doctor on October 14. Return to the emergency department if you develop any worsening or new concerning symptoms such as numbness, weakness or fever. Discharge Data Discharge Date/Time-TO BE ENTERED AT DEPARTURE: 10/06/19 20:50 Discharge Physician: Emperatriz Mcnamara Medical Decision Making 34yo F with a history of cubital tunnel repair and carpal tunnel repair by Dr. Calvert within the last year in [place] who presents with left forearm pain which is causing spasming at her left wrist and hand for the past 2 hours. She is left-handed but denies any known injury. She denies any fever, numbness, tingling, weakness. She took Tylenol for pain without relief. She appears nontoxic. Afebrile. Left upper extremity normal to inspection. Patient has reproducible pain with flexion, pronation and supination of elbow. She has no tenderness palpation of her elbow or wrist. She is neurovascularly intact. Appears likely consistent with tendinitis. There is no evidence of trauma, cellulitis or rash. Do not see an indication for imaging and patient is agreeable. She was given a dose of ibuprofen here and a left elbow and forearm Jomar wrap was placed. She was advised and the importance of rest, ice, elevate and NSAIDs. She has a follow-up appointment with her primary care doctor on October 14. She is advised to return here with any concerns. Medical Records Medical records reviewed: Yes I reviewed the patient's medical records. HPI General Mode of arrival: ambulatory . Date/Time Provider Initiated Documentation: 10/06/19 20:13 . Limitations to Documentation: no limitations . Information obtained by: patient . History of Present Illness 34 year old F presents to the emergency department with the chief complaint of Left forearm pain with occasional left hand spasming, Quality is described as burning, aching and sharp, and is localized to the left and upper extremity (forearm). Patient extremity (from L forearm down to hand). Patient started experiencing this hour(s) (3) and it has been intermittent. No relieving factors improve symptom(s), Other factors that worsen symptoms (no relief with tylenol ) . Patient notes denies fever/chills, rash and weakness. Patient did receive the following treatments prior to arrival, other (tylenol) Related Data Home Medications Medication Instructions Recorded Confirmed acetaminophen [Pain Relief] 2 tab PO PRN PRN 09/25/14 10/06/19 albuterol sulfate [Proventil HFA] 1 inh INHALATION PRN PRN 09/25/14 10/06/19 ibuprofen 800 mg PO TID PRN PRN 09/25/14 10/06/19 buprenorphine-naloxone [Suboxone] 12 mg PO DAILY 10/21/17 10/06/19 pantoprazole 40 mg PO DAILY 10/21/17 10/06/19 Chantix 1 mg PO DAILY 06/06/19 09/13/19 trazodone 100 mg PO QHS 06/07/19 10/06/19 gabapentin 800 mg TID 09/01/19 10/06/19 Lupron Depot (3 month) mg IM Q12W 09/13/19 buspirone 15 mg 10/06/19 Allergies Allergy/AdvReac Type Severity Reaction Status Date / Time doxycycline Allergy Swelling/Ed Unverified 10/06/19 20:14 brynn Penicillins Allergy Anaphylaxsi Unverified 10/06/19 20:14 s azithromycin AdvReac Nausea Unverified 10/06/19 20:14 calcium carbonate [From DHEA] AdvReac Swelling/Ed Unverified 10/06/19 20:14 brynn calcium phosphate,dibasic AdvReac Swelling/Ed Unverified 10/06/19 20:14 [From DHEA] brynn ketorolac AdvReac Nausea Unverified 10/06/19 20:14 latex AdvReac Skin Rash Unverified 10/06/19 20:14 nitrofurantoin AdvReac muscles Unverified 10/06/19 20:14 [From Macrobid] stiffen up all over body nitrofurantoin AdvReac muscles Unverified 10/06/19 20:14 macrocrystalline stiffen up [From Macrobid] all over body prasterone (DHEA) [From DHEA] AdvReac Swelling/Ed Unverified 10/06/19 20:14 brynn silver AdvReac Skin Rash Unverified 09/01/19 14:32 [From Tegaderm AG Mesh] tramadol AdvReac Urinary Unverified 09/01/19 14:32 retention General Stated Complaint: Orthopedic JAN: 4 Review of Systems All systems reviewed & are unremarkable except as noted in HPI and below Constitutional Constitutional: Reports as per HPI, Denies chills and Denies fever(s) Eyes Eyes: Denies blurry vision ENT Ears, Nose, Mouth, and Throat: Denies dizziness, Denies sore throat and Denies throat swelling Cardiovascular Cardiovascular: Denies chest pain and Denies dyspnea Respiratory Respiratory: Denies cough and Denies dyspnea Gastrointestinal Gastrointestinal: Denies abdominal pain, Denies diarrhea and Denies vomiting Genitourinary Genitourinary: Denies hematuria and Denies dysuria Musculoskeletal Musculoskeletal: Denies back pain and Denies numbness Integumentary/Breasts Skin/Breast: Denies lesions and Denies rash Neurologic Neurologic: Denies dizziness, Denies focal weakness and Denies numbness Allergic/Immunologic Allergic/Immunologic: Denies throat swelling [facility] Social History Smoking/Tobacco Use Status: Current every day Tobacco Type: cigarettes Quit status: considering quitting Counseling given: provider counseling and other Details: Taking Chantix in order to quit Alcohol Intake: never Drug use: Current Sobriety Substance use type: former substance user Date of last use: 3 years. Suboxone 12 mg daily no relapses Household members: other Details: Has roommate. Boyfriend is named Brian. All 4 children adopted out. Number of Children: 4 current occupation: Unemployed. Receives disability for mental health issues Do you feel safe at home: Yes Do you feel safe in your relationship?: Yes Exam Const General: cooperative, healthy appearing and no acute distress HENMT Head: normal to inspection Mouth: oral mucosae normal Eyes General: appearance normal, both eyes and all related structures Neck Neck: normal visual inspection Resp Effort & Inspection: normal respiratory effort and able to speak in complete sentences Cardio Rate: regular rate Skin General skin exam: no rashes or lesions noted Neuro General: alert, awake, oriented x3 and moves all extremities Motor: muscle tone normal throughout and strength 5/5 throughout Sensory Exam: no sensory deficits noted Other: Normal motor and sensory function of radial/ulnar/median nerves. Muscle strength 5/5 bilateral upper extremities. Extrem Other: Left upper extremity: Normal to inspection. Pain reproducible in left elbow/forearm with flexion and pronation and supination at elbow. No tenderness to palpation of left elbow including radial head. Left radial and ulnar pulses intact. Psych Appearance: grossly normal Affect: normal affect Course Vital Signs Vital signs: Vital Signs Temperature 97.5 F L 10/06/19 20:07 Pulse 117 H 10/06/19 20:07 Respiratory Rate 18 10/06/19 20:07 Blood Pressure 135/117 H 10/06/19 20:07 Pulse Oximetry 97 10/06/19 20:07 Temperature 97.5 F L 10/06/19 20:07 Pulse 117 H 10/06/19 20:07 Respiratory Rate 18 10/06/19 20:07 Respiratory Effort 10/06/19 20:10 Blood Pressure 135/117 H 10/06/19 20:07 Pulse Oximetry 97 10/06/19 20:07 Oxygen Delivery Method Room Air 10/06/19 20:07 Oxygen Flow Rate 0 10/06/19 20:07 Pain Level 8 10/06/19 20:10
[2019-10-06] MEDS: Ibuprofen 600 MG TAB PO (20:46)
== END 2019-10-06 20:50 | disposition home or self-care (01) ==
PROVIDERS: Emergency Provider Physician Assistant; PCP Nurse Practitioner Family
DX: M77.8 Other enthesopathies, not elsewhere classified (principal); M62.838 Other muscle spasm
CPT/HCPCS: 99282; 99283

== ENCOUNTER 2019-10-18 19:33 | Emergency (ER) | payer MEDICAID, SELFPAY ==
[2019-10-18 19:37] VITALS: BP 156/99; PULSE 93; RESP 16; TEMP 36.4; O2SAT 98
--- NOTE | 2019-10-18 20:21 | DI.RAD_ITS ---
EXAM: XR KNEE RT 3V AP,LAT,MARY KAY INDICATION: medial knee pain. COMPARISON: No exams were available for comparison TECHNIQUE: 2D digital imaging was performed. FINDINGS: No fracture or joint effusion is seen. There are degenerative changes of the femoral tibial joints. There is periarticular spurring but no significant joint space narrowing. A bony density is seen in the anterior joint space. There are milder degenerative changes of the patellofemoral joint. IMPRESSION: Degenerative changes and joint space loose body.. No acute abnormality. DATA REPOSITORY: RADIATION DOSE DELIVERED:
[2019-10-18] MEDS: methylPREDNISolone SUCC 125 MG VIAL IM (20:25)
[2019-10-18] MEDS: Lidocaine 5% Patch 1 PATCH TP (20:27)
--- NOTE | 2019-10-18 20:38 | ED.GENADUL_ITS ---
Discharge Plan Disposition Patient Disposition: HOME Condition: Good Discharge Details Chief Complaint: Orthopedic Clinical Impression: Acute pain of right knee, Bursitis, prepatellar Primary Care Provider: Yudelka Cano ED Provider: Yo Lee Home Meds and New Rx's Prescriptions: No Action ibuprofen 800 MG tablet 800 mg PO TID PRN PRNRF: 0 acetaminophen [Pain Relief] 500 MG tablet 2 tab PO PRN PRNRF: 0 albuterol sulfate [Proventil HFA] 1 PUFF HFA aerosol inhaler 1 inh Inhalation PRN PRNRF: 0 gabapentin 800 mg Tablet 800 mg TID RF: 0 Lupron Depot (3 month) 11.25 mg Syringe Kit IM Q12W RF: 0 pantoprazole 40 MG tablet,delayed release (DR/EC) 40 mg PO DAILY RF: 0 buprenorphine-naloxone [Suboxone] 1 EACH film 12 mg PO DAILY RF: 0 Chantix 0.5 mg Tablet 1 mg PO DAILY RF: 0 trazodone 50 mg Tablet 100 mg PO QHS RF: 0 buspirone 15 mg Tablet 15 mg RF: 0 Discharge Instructions Instructions: Knee Pain (ED) Additional Instructions: At this time the x-ray shows no evidence of fracture per our radiologist. There are notable degenerative changes and calcifications noted in the knee compartment, some of which may be secondary to the degeneration and previous surgeries. This is likely causing the popping. The bursitis that we discussed which is the swelling in your knee, needs Tylenol Motrin time at rest to get better. Please take 600 mg of ibuprofen every 6 hours and 1000 mg of Tylenol every 6 hours to help. Please ice it as frequently as possible. Please keep an Jomar wrap, elevated and use the crutches when ambulating. We will schedule an outpatient orthopedic follow-up for you. They will contact you with the appointment time. Please do not miss this. If you notice any worsening of your symptoms, or any new symptoms such as vomiting, diarrhea, fever, chills, shortness of breath, chest pain, numbness, weakness, or fainting , please return immediately to the emergency department for reevaluation. Please follow up with your primary care provider as soon as possible for reassessment and reevaluation. As always, it was a pleasure participating in your medical care today. Referrals: Yudelka Cano [Primary Care Provider] - Medical Decision Making This is a 34-year-old female with past medical history of PTSD, bipolar, chronic right knee pain secondary to previous injuries, meniscal inju ry, ACL injury, ACL surgery, who presents today for evaluation of knee pain. Patient states that her leg pops fairly commonly, however yesterday while she was walking popped again she had notable associated pain. Knee gave out but she did not fall, there was no trauma. Since then she has had mild swelling just below the patella, and continued pain and continued mild popping. She is able to ambulate but with a limp. She denies any significant decrease in strength. She denies any fever, chills, IV or illicit drug use. She has been taking NSAIDs for but this is not significantly helped. She denies any other complaints at this time. Physical exam demonstrates notable swelling over the prepatellar region of the right knee, no redness warmth or signs of trauma. Physical exam demonstrates notable stability of the knee which is surprising in spite of her multiple surgeries and previous injuries. She does have subjective tenderness over the inflamed bursa, as well as minimal tenderness over the medial aspect of the knee joint, and less the tibial plateau. She demonstrates good strength. Physical exam is certainly concerning for prepatellar bursitis, in conjunction with what I suspect to be mild ligamentous injury in the knee for which she is hearing the popping and having the associated pain. X-ray shows no evidence of acute fracture, there is notable degenerative changes though. [facility] does note a probable small loose body in the anterior knee relating to degenerative changes, or may be secondary to potential calcification from previous ACL surgeries. However also on the differential does include previous calcification from the surgery is now loose. We will recommend follow- up with orthopedics here in [facility]. She is preferring a new orthopedic follow- up here in [facility] versus seeing her previous providers in other surrounding [facility]. We will recommend continued NSAIDs. Lidoderm patch will be applied here. Unfortunately a hinged knee brace did not fit on the patient's knee. We will wrap with Jomar wrap, recommend continued ice and elevation and crutches for some relief. I have extensively reviewed the treatment plan and discharge instructions with the patient. I have addressed all patient concerns at this time. The patient was made aware of what symptoms to monitor for that would warrant a return to the emergency department. Discussed the plan with the patient, they demonstrate verbal understanding and agreement with our assessment and plan at this time. FINDINGS: Bones/joints: Moderate medial and lateral compartment degenerative changes. 15 mm calcification projecting over the anterior knee joint. Small joint fluid. No acute fracture or subluxation. Soft tissues: Benign calcifications in the soft tissues. IMPRESSION: Moderate medial and lateral compartment degenerative changes. Probable small loose body in the anterior knee relating to degenerative changes. Thank you for allowing us to participate in the care of your patient. Dictated and Authenticated by: Kelly Mcpherson MD 10/18/2019 8:48 PM Eastern Time ([place] & [place]) HPI General Date/Time Provider Initiated Documentation: 10/18/19 19:41 . HPI Narrative: This is a 34-year-old female with past medical history of PTSD, bipolar, chronic right knee pain secondary to previous injuries, meniscal injury, ACL injury, ACL surgery, who presents today for evaluation of knee pain. Patient states that her leg pops fairly commonly, however yesterday while she was walking popped again she had notable associated pain. Knee gave out but she did not fall, there was no trauma. Since then she has had mild swelling just below the patella, and continued pain and continued mild popping. She is able to ambulate but with a limp. She denies any significant decrease in strength. She denies any fever, chills, IV or illicit drug use. She has been taking NSAIDs for but this is not significantly helped. She denies any other complaints at this time. No other modifying factors. Related Data Home Medications Medication Instructions Recorded Confirmed acetaminophen [Pain Relief] 2 tab PO PRN PRN 09/25/14 10/18/19 albuterol sulfate [Proventil HFA] 1 inh INHALATION PRN PRN 09/25/14 10/18/19 ibuprofen 800 mg PO TID PRN PRN 09/25/14 10/18/19 buprenorphine-naloxone [Suboxone] 12 mg PO DAILY 10/21/17 10/18/19 pantoprazole 40 mg PO DAILY 10/21/17 10/18/19 Chantix 1 mg PO DAILY 06/06/19 10/18/19 trazodone 100 mg PO QHS 06/07/19 10/18/19 gabapentin 800 mg TID 09/01/19 10/18/19 Lupron Depot (3 month) mg IM Q12W 09/13/19 buspirone 15 mg 10/06/19 Allergies Allergy/AdvReac Type Severity Reaction Status Date / Time doxycycline Allergy Swelling/Ed Unverified 10/18/19 19:43 brynn Penicillins Allergy Anaphylaxsi Unverified 10/18/19 19:43 s azithromycin AdvReac Nausea Unverified 10/18/19 19:43 calcium carbonate [From DHEA] AdvReac Swelling/Ed Unverified 10/18/19 19:43 brynn calcium phosphate,dibasic AdvReac Swelling/Ed Unverified 10/18/19 19:43 [From DHEA] brynn ketorolac AdvReac Nausea Unverified 10/18/19 19:43 latex AdvReac Skin Rash Unverified 10/18/19 19:43 nitrofurantoin AdvReac muscles Unverified 10/18/19 19:43 [From Macrobid] stiffen up all over body nitrofurantoin AdvReac muscles Unverified 10/18/19 19:43 macrocrystalline stiffen up [From Macrobid] all over body prasterone (DHEA) [From DHEA] AdvReac Swelling/Ed Unverified 10/18/19 19:43 brynn silver AdvReac Skin Rash Unverified 10/18/19 19:43 [From Tegaderm AG Mesh] tramadol AdvReac Urinary Unverified 10/18/19 19:43 retention General Stated Complaint: Orthopedic JAN: 4 Review of Systems All systems reviewed & are unremarkable except as noted in HPI and below PFSH Social History Smoking/Tobacco Use Status: Current every day Tobacco Type: cigarettes Quit status: considering quitting Counseling given: provider counseling and other Details: Taking Chantix in order to quit Alcohol Intake: never Drug use: Current Sobriety Substance use type: former substance user Date of last use: 3 years. Suboxone 12 mg daily no relapses Household members: other Details: Has roommate. Boyfriend is named Brian. All 4 children adopted out. Number of Children: 4 current occupation: Unemployed. Receives disability for mental health issues Do you feel safe at home: Yes Do you feel safe in your relationship?: Yes Exam Narrative Exam Narrative: 1.Const: Well-nourished, Well-developed, appearing stated age 2.Eyes: PERRL, no conjunctival injection, and symmetrical lids. 3.ENT: Atraumatic external nose and ears. Moist MM. Neck: Symmetric, trachea midline, No thyromegaly. 4.CVS: +S1/S2, No murmurs or gallops. Peripheral pulses 2+ and equal in all extremities. Brisk capillary refill in all extremities. 5.RESP: Unlabored respiratory effort. Clear to auscultation bilaterally. No wheezes rales or rhonchi 6.GI: Soft, Nontender/Nondistended, No hepatosplenomegaly. No guarding or rebound. 7.MSK: Normocephalic/Atraumatic, Extremities w/o deformity. No cyanosis or clubbing. Right knee: The knee is stable to varus, valgus, and anterior drawer stress. Patient does have tenderness at the medial aspect of the knee with varus stressing surprisingly. No pain with valgus stressing. No pain with anterior posterior drawer. No deformity. Patellar grind test is negative. No significant laxity of patella. Bernard test is negative for pain. Patient does have notable swelling in the prepatellar bursa. This is minimally tender to palpation. She also has minimal tenderness over the medial aspect of the knee joint itself, not so much over the tibial plateau. No ttp to the patella or fibular head. No other abnormalities. Patient demonstrates excellent strength with flexion and extension of the knee, but does have some subjective pain with both of these movements. 8.Skin: Warm, Dry. No rashes or lesions. No redness or warmth over the knee, no evidence of infection 9.Neuro: breaker layer II-XII grossly intact. Sensation grossly intact, no focal neurologic deficits. 10.Psych: (AAO) x3. Appropriate mood and affect Course Vital Signs Vital signs: Vital Signs Temperature 36.4 C L 10/18/19 19:37 Pulse 93 H 10/18/19 19:37 Respiratory Rate 16 10/18/19 19:37 Blood Pressure 156/99 H 10/18/19 19:37 Pulse Oximetry 98 10/18/19 19:37 Temperature 36.4 C L 10/18/19 19:37 Temperature Source Skin 10/18/19 19:37 Pulse 93 H 10/18/19 19:37 Respiratory Rate 16 10/18/19 19:37 Respiratory Effort 10/18/19 19:37 Blood Pressure 156/99 H 10/18/19 19:37 Pulse Oximetry 98 10/18/19 19:37 Oxygen Delivery Method Room Air 10/18/19 19:37 Oxygen Flow Rate 0 10/18/19 19:37 Pain Level 7 10/18/19 19:37
--- NOTE | 2019-10-18 20:42 | NUR.NOTE ---
Nursing Note: 2034: Jomar wrap to right knee. Sensation and neuros remain intact.
--- NOTE | 2019-10-18 20:48 | DI.VRAD_ITS ---
PROCEDURE INFORMATION: Exam: XR Right Knee Exam date and time: 10/18/2019 20:12 Age: 34 years old Clinical indication: Right; Prior surgery; Surgery date: 6+ months; Surgery type: Knee repair; Patient HX: Medial knee pain. No known trauma TECHNIQUE: Imaging protocol: XR Right knee. Views: 3 views. COMPARISON: No relevant prior studies available. FINDINGS: Bones/joints: Moderate medial and lateral compartment degenerative changes. 15 mm calcification projecting over the anterior knee joint. Small joint fluid. No acute fracture or subluxation. Soft tissues: Benign calcifications in the soft tissues. IMPRESSION: Moderate medial and lateral compartment degenerative changes. Probable small loose body in the anterior knee relating to degenerative changes. Dictated and Authenticated by: Kelly Mcpherson MD. Ordering:KRISTIAN Ram MD
[2019-10-18 20:55] VITALS: BP 143/76; PULSE 93; RESP 16; O2SAT 99
== END 2019-10-18 21:00 | disposition home or self-care (01) ==
PROVIDERS: Emergency Provider Student in an Organized Health Care Education/Training Program; PCP Nurse Practitioner Family
DX: M25.561 Pain in right knee (principal); M70.41 Prepatellar bursitis, right knee
CPT/HCPCS: 73562; 96372; 99284; E0114; J2930

== ENCOUNTER 2019-11-03 14:06 | Outpatient (CLI) | payer MEDICAID, SELFPAY ==
--- NOTE | 2019-11-03 14:00 | DI.RAD_ITS ---
EXAM: XR KNEE RT 1V CLINICAL HISTORY: Pain. TECHNIQUE: 2D digital imaging was performed. COMPARISON: XR KNEE RT 3V AP,LAT,MARY KAY from 10/18/2019 FINDINGS: BONES: No acute fracture is present. No bony destructive lesion is seen. JOINTS: The patellar alignment is within normal limits. SOFT TISSUE: Normal. IMPRESSION: Unremarkable radiographs of the right knee. DATA REPOSITORY: RADIATION DOSE DELIVERED:
== END 2019-11-03 14:26 ==
PROVIDERS: PCP Nurse Practitioner Family; Visit Provider Student in an Organized Health Care Education/Training Program
DX: M25.561 Pain in right knee (principal)
CPT/HCPCS: 73560

== ENCOUNTER 2019-12-10 21:44 | Inpatient (IN) | payer MEDICAID, SELFPAY ==
[2019-12-10] VITALS (14 sets, daily range): BP systolic 95–116; BP diastolic 52–71; PULSE 110–133; RESP 21–39; TEMP 37.8; O2SAT 91–96
--- NOTE | 2019-12-10 22:14 | ED.GENADUL_ITS ---
Discharge Plan Disposition Patient Disposition: [facility] INPATIENT Condition: Stable Discharge Details Chief Complaint: RespSymp Clinical Impression: Ground glass opacity present on imaging of lung, Shortness of breath Primary Care Provider: Yudelka Cano ED Provider: Dawna Willis Home Meds and New Rx's Prescriptions: No Action acetaminophen [Pain Relief] 500 MG tablet 2 tab PO PRN PRNRF: 0 Lupron Depot (3 month) 11.25 mg Syringe Kit 11.2 mg IM Q12W RF: 0 pantoprazole 40 MG tablet,delayed release (DR/EC) 40 mg PO DAILY RF: 0 buprenorphine-naloxone [Suboxone] 1 EACH film 12 mg PO DAILY RF: 0 buspirone 15 mg Tablet 15 mg PO BID RF: 0 riboflavin (vitamin B2) [Vitamin B-2] 100 mg tablet 4,000 mg PO DAILY RF: 0 promethazine 12.5 mg tablet 12.5 mg PO Q12H PRN PRNRF: 0 topiramate 25 mg Tablet 25 mg PO BID RF: 0 lamotrigine 25 mg Tablet 50 mg PO DAILY RF: 0 paroxetine HCl 20 mg tablet 20 mg PO DAILY RF: 0 albuterol sulfate [ProAir HFA] 90 mcg/actuation Hfa Aerosol Inhaler 2 - 4 puff INHALATION Q4H PRN PRNRF: 0 Flovent HFA 110 mcg/actuation Hfa Aerosol Inhaler 2 puff INHALATION BID RF: 0 riboflavin (vitamin B2) 50 mg Tablet 4,000 mg PO DAILY RF: 0 hydroxyzine pamoate 25 mg capsule 25 mg PO BID RF: 0 pregabalin 150 mg capsule 1 mg PO BID RF: 0 Medical Decision Making This is a 34-year-old patient presenting to the emergency room for complaints of shortness of breath, cough and fever. Patient is also complaining of chest pain for the last 5 days. Patient reports onset of fever today greater than 101. Patient reports dry cough for the last several days. Patient denies production. Patient reports onset of shortness of breath worsening in the last 24 hours. Patient reports she did try her inhaler at home without significant relief. Patient reports onset of dizziness noted today patient reports when driving to the hospital today she was moderately dizzy. Denies any vertiginous aspect of her dizziness. Patient reports minimal fluid intake as a baseline. Patient reports mild nausea but denies abdominal pain or bowel changes. Denies dysuria, urgency or frequency. Patient reports she is predominantly concerned with Covid as she has multiple household contacts whom have not been maintaining isolation and also has an ill ex-boyfriend. Patient reports baseline headache unchanged. Denies nasal congestion or sore throat. Denies ear pain. Patient denies any lower extremity swelling. Patient does have multiple medical problems including asthma, headaches, history of opiate abuse currently controlled on Suboxone. Pain disorders. Patient has a surgical history of history of cholecystectomy as well as hysterectomy and tubal ligation. Patient denies taking any cold medications prior to arrival however after noting her fever today at home she did take 1000 mg of Tylenol 1 hour prior to arrival. Pt denies any recent drug use/IVDU. Patient presents appearing extremely anxious, she is notably tachycardic with a heart rate of 125 however blood pressure is normal at 116/71. Respirations easy and unlabored despite patient's complaints of shortness of breath. Patient is speaking in full sentences. Patient's oxygen saturation maintained at 96%. Patient does have a fever 37.8 at this time. We will plan to evaluate with Covid labs in addition to CT of her chest including rule out for PE given patient's complaints and notable tachycardia. Will provide patient 1 L of IV fluid if dehydration is attributing to her tachycardia this evening. Will provide a small amount of Ativan as patient is seemingly extremely anxious at this time for symptomatic relief and for tolerance of imaging. CTA reveals no pulmonary embolism or dissection. Extensive diffuse bilateral groundglass opacities noted. Consistent with Covid pneumonia although nonspecific and could occur with infections and noninfectious processes per [facility]. Patient's labs reveal leukocytosis with a count of 28.8K patient's d-dimer elevated at 528, lactate noted to be 1.9, LDH noted to be 332. C-reactive protein elevated at 1.74. At this time patient's CT evaluation in conjunction with her initial labs and complaints in addition to her social exposures to multiple roommates whom have not been maintaining isolation in addition to an ill ex-boyfriend patient very likely has clinical Covid. Covid testing as well as influenza testing performed in the emergency room. Initial evaluation of patient we had a conversation regarding her intentions of discharge home however she made very clear that she did not feel comfortable going home today. Patient does desire admission to the hospital given her elevated white count, chest CT findings complaints of chest pain and shortness of breath despite patient's maintained O2 saturations at this time will admit. We discussed proper use of mask while in hospital and she reports her understanding. Spoke with Dr. Levy regarding patient's case, care management. He recommends Levaquin IV at this time. He will placed the remainder of patient's orders. We will plan to admit. HPI General Date/Time Provider Initiated Documentation: 12/10/19 21:45 . HPI Narrative: This is a 34-year-old patient presented to the emergency room for complaints of shortness of breath, chest discomfort and fever. Patient reports fever began this evening, temperature of 101 noted at home. Patient took 1000 mg of Tylenol 1 hour prior to arrival. Patient reports shortness of breath worse today. Patient does complain of chest discomfort which has been present for approximately 5 days. Patient reports no radiation of pain. No exacerbating or alleviating symptoms. Patient reports mild nausea denies abdominal pain or back pain. Patient reports baseline headaches, unchanged. Patient denies sore throat or voice change. Patient does report notable dizziness this evening. Patient does report history of asthma she did use her inhaler without significant relief. Patient denies diarrhea or bowel change. Denies any dysuria, urgency or frequency. Patient reports cough as dry and nonproductive. Patient does report her ex-boyfriend has been sick recently and she does report multiple exposures with roommates who have not been maintaining isolation. Patient concerned with possible Covid. Related Data Home Medications Medication Instructions Recorded Confirmed acetaminophen [Pain Relief] 2 tab PO PRN PRN 09/25/14 12/10/19 buprenorphine-naloxone [Suboxone] 12 mg PO DAILY 10/21/17 12/10/19 pantoprazole 40 mg PO DAILY 10/21/17 11/03/19 Lupron Depot (3 month) 11.2 mg IM Q12W 09/13/19 12/10/19 buspirone 15 mg PO BID 10/06/19 12/10/19 albuterol sulfate [ProAir HFA] 2 - 4 puff INHALATION Q4H PRN PRN 12/10/19 12/10/19 fluticasone propionate [Flovent 2 puff INHALATION BID 12/10/19 12/10/19 HFA] hydroxyzine pamoate 25 mg PO BID 12/10/19 12/10/19 lamotrigine 50 mg PO DAILY 12/10/19 12/10/19 paroxetine HCl 20 mg PO DAILY 12/10/19 12/10/19 pregabalin 1 mg PO BID 12/10/19 12/10/19 promethazine 12.5 mg PO Q12H PRN PRN 12/10/19 12/10/19 riboflavin (vitamin B2) 4,000 mg PO DAILY 12/10/19 12/10/19 riboflavin (vitamin B2) [Vitamin 4,000 mg PO DAILY 12/10/19 12/10/19 B-2] topiramate 25 mg PO BID 12/10/19 12/10/19 Allergies Allergy/AdvReac Type Severity Reaction Status Date / Time doxycycline Allergy Swelling/Ed Unverified 12/10/19 21:59 brynn Penicillins Allergy Anaphylaxsi Unverified 12/10/19 21:59 s azithromycin AdvReac Nausea Unverified 12/10/19 21:59 calcium carbonate [From DHEA] AdvReac Swelling/Ed Unverified 12/10/19 21:59 brynn calcium phosphate,dibasic AdvReac Swelling/Ed Unverified 12/10/19 21:59 [From DHEA] brynn ketorolac AdvReac Nausea Unverified 12/10/19 21:59 latex AdvReac Skin Rash Unverified 12/10/19 21:59 nitrofurantoin AdvReac muscles Unverified 12/10/19 21:59 [From Macrobid] stiffen up all over body nitrofurantoin AdvReac muscles Unverified 12/10/19 21:59 macrocrystalline stiffen up [From Macrobid] all over body prasterone (DHEA) [From DHEA] AdvReac Swelling/Ed Unverified 12/10/19 21:59 brynn silver AdvReac Skin Rash Unverified 12/10/19 21:59 [From Tegaderm AG Mesh] tramadol AdvReac Urinary Unverified 12/10/19 21:59 retention General Stated Complaint: RespSymp JAN: 2 Review of Systems All systems reviewed & are unremarkable except as noted in HPI and below Constitutional Constitutional: Reports chills, Denies fatigue, Reports fever(s), Reports headache(s) and Reports malaise ENT Ears, Nose, Mouth, and Throat: Reports headache(s), Denies nasal congestion, Denies nasal discharge, Denies sore throat and Denies throat swelling Cardiovascular Cardiovascular: Reports dyspnea Respiratory Respiratory: Reports cough, Denies hemoptysis, Reports dyspnea and Denies wheezing Gastrointestinal Gastrointestinal: Denies abdominal pain, Reports nausea and Denies vomiting Genitourinary Genitourinary: Denies difficulty voiding, Denies dysuria and Denies urinary urgency Neurologic Neurologic: Reports headache(s) Endocrine Endocrine: Denies fatigue Allergic/Immunologic Allergic/Immunologic: Denies throat swelling and Denies wheezing [facility] Medical History Asthma (Chronic) Bipolar disease, chronic (Acute) Patient has been hospitalized for suicidal ideation the past currently not taking any medications. Is on disability for mental health issues Chronic pelvic pain in female (Acute) [place] [facility] [place] Gabapentin 300 mg 3 times a day as needed Headache (Acute) Imitrex as needed Hearing loss (Acute) Right side conduction loss cholecystectomy treated with titanium insert History of opioid abuse (Acute) Take Suboxone 12 mg SL daily x3yrs. Weekly dosing given at [facility] in [place] PTSD (post-traumatic stress disorder) (Acute) Currently not in counseling Right knee pain (Acute) Awaiting ACL reconstruction Tobacco use (Acute) Has used Chantix off-and-on. Social History Smoking/Tobacco Use Status: Current every day Tobacco Type: cigarettes Quit status: considering quitting Counseling given: provider counseling and other Details: Taking Chantix in or naveed to quit Alcohol Intake: never Drug use: Current Sobriety Substance use type: former substance user Date of last use: 3 years. Suboxone 12 mg daily no relapses Household members: other Details: Has roommate. Boyfriend is named Brian. All 4 children adopted out. Number of Children: 4 current occupation: Unemployed. Receives disability for mental health issues Do you feel safe at home: Yes Do you feel safe in your relationship?: Yes Exam Narrative Exam Narrative: CONST: Anxious appearing. Alert and oriented. HENMT: Head nomocephalic, normal to inspection. Limited HEENT exam due to PUI. EYES: General normal appearance. Alignment normal. Eyelids normal. Conjunctiva normal. Sclera normal. PERRL. NECK: Normal visual inspection. FROM. Trachea midline. No Midline tenderness. CHEST: Normal insepection of the chest. RESP: Normal respiratory effort. Speaking full sentences. No cough. No wheezing. No retractions. Clear to auscaltation. Breath sound equal and present bilaterally. CARDIO: No JVD. Normal PMI. Regular Rate. Regular Rhythm. Normal peripheral pulses. GI: Normal inspection of abdomen. No distension. Soft. Nontender. Bowel sounds present in all 4 quadrants. No rebound. No gaurding. MUSCULOSKELETAL: Normal Gait. FROM of all extremities. Distal neurovascularly intact. Sensation intact distally. No significant lower extremity edema SKIN: Normal. Dry. No rashes. NEURO: Alert and awake. Speech clear. PSYCH: anxious. Cooperative. Course Vital Signs Vital signs: Vital Signs Temperature 37.8 C H 12/10/19 21:50 Pulse 125 H 12/10/19 21:50 Respiratory Rate 21 12/10/19 21:50 Blood Pressure 116/71 12/10/19 21:50 Pulse Oximetry 96 12/10/19 21:50 Temperature 37.8 C H 12/10/19 21:50 Temperature Source Skin 12/10/19 21:50 Pulse 125 H 12/10/19 21:50 Respiratory Rate 21 12/10/19 21:50 Respiratory Effort 12/10/19 21:56 Blood Pressure 116/71 12/10/19 21:50 Blood Pressure Position Sitting 12/10/19 21:50 Pulse Oximetry 96 12/10/19 21:50 Oxygen Delivery Method Room Air 12/10/19 21:50 Oxygen Flow Rate 0 12/10/19 21:50 Lab/Test Results Lab/Test Results: 12/10/19 22:06 Blood Blood Culture - Pending 12/10/19 22:06 Blood Blood Culture - Pending
[2019-12-10 22:25] LABS: Lactate 1.9 mmol/L (0.6-1.4)
[2019-12-10] MEDS: LORazepam 2 MG/ML VIAL 0.5 MG IVP (22:30)
[2019-12-10 22:34] LABS: Abs Immature Grans 0.18 k/cumm (0.0-0.09); HCT 39.8 % (36.0-46.0); HGB 13.7 g/dL (12.0-15.5); Mean Corp. HGB Concentration 34.4 g/dL (32.0-36.0); Mean Corpuscular Hemoglobin 28.2 pg (27.0-33.0); Mean Corpuscular Volume 81.9 fL (80-95); Mean Platelet Volume 9.8 fL (8.0-11.0); Platelet Count 342 x1000/uL (130-400); RBC 4.86 m/cumm (4.00-5.20); RBC Distribution Width 13.5 % (11.7-14.6)
--- NOTE | 2019-12-10 22:37 | DI.CT_ITS ---
EXAM: CT CHEST PE CTA CLINICAL HISTORY: SOB, fever, cough. r/o PE, PUI. TECHNIQUE: Imaging Protocol: Axial CT angiography was performed with multi-slice acquisition and mu lti-planar and/or 3D reconstructions. CONTRAST MATERIAL: Intravenous: Omnipaque 350 Contrast volume:structured data in ml COMPARISON: CT ABDOMEN PELVIS W from 06/06/2019 FINDINGS: The exam is limited by motion. Pulmonary Arteries: No evidence of filling defect to suggest pulmonary emboli. Tracheobronchial tree: Patent where visualized. Mediastinum and Jolene: No dominant adenopathy or fluid collection. Pulmonary parenchyma: Diffuse bilateral ground-glass opacities no consolidation or dominant measurabl e mass. . Pleura: No effusion or pneumothorax. Heart: The heart is not dilated. No coronary artery calcifications are seen. Aorta: Thoracic aorta non-dilated. Upper abdomen: Status post cholecystectomy. Otherwise unremarkable. Bones: Normal. IMPRESSION: Diffuse bilateral ground-glass opacities could be secondary to viral pneumonia, including COVID-19 or influenza. Inhalational injury and drug toxicity or other possibilities. No evidence of pulmonary embolism. RADIATION DOSE DELIVERED: Total DLP DATA REPOSITORY: All CT scans at this facility are submitted to the National Radiology Data Registry (NRDR) Dose Index Registry (DIR) with the [employer] ([employer]). RADIATION OPTIMIZATION: All CT scans at this facility use at least one of these dose optimization te chniques: automated exposure control; mA and/or kV adjustment per patient size (includes targeted exa ms where dose is matched to clinical indication); or iterative reconstruction.
[2019-12-10] MEDS: Normal Saline Flush 10 ML SYR IVP (22:41)
[2019-12-10] MEDS: Omnipaque 350 MG/ML 100 ML BTL IJ (22:41)
[2019-12-10] MEDS: Normal Saline - Diluent 50 ML VIAL IV (22:42)
[2019-12-10 22:51] LABS: C-Reactive Protein 1.74 mg/dL (0.0-0.3); LDH 332 U/L (81-234)
--- NOTE | 2019-12-10 22:57 | DI.VRAD_ITS ---
Addendum created by Quang Kelley MD on 12/10/2019 11:13:[address] Aviles indicated that the report was reviewed with no questions at 12/10/2019 11:11 PM EDT. Initial report created on 12/10/2019 10:57:13 PM EDT PROCEDURE INFORMATION: Exam: CT Angiography Chest With Contrast Exam date and time: 12/10/2019 10:08 PM Age: 34 years old Clinical indication: Cough and fever and shortness of breath; Additional info: R/O pe TECHNIQUE: Imaging protocol: Computed tomographic angiography of the chest with intravenous contrast. 3D rendering: MIP and/or 3D reconstructed images were created by the technologist. Radiation optimization: All CT scans at this facility use at least one of these dose optimization techniques: automated exposure control; mA and/or kV adjustment per patient size (includes targeted exams where dose is matched to clinical indication); or iterative reconstruction. Contrast material: [id number]; Contrast volume: 84 ml; Contrast route: IV 20G RAC; COMPARISON: No relevant prior studies available. FINDINGS: Pulmonary arteries: Normal. No pulmonary emboli. Aorta: Unremarkable. No aortic aneurysm. No aortic dissection. Lungs: There are extensive diffuse bilateral well-defined amorphous ground-glass pulmonary opacities. No dense consolidation. No cavitation. Pleural space: Unremarkable. No pneumothorax. No pleural effusion. Heart: Unremarkable. No cardiomegaly. No pericardial effusion. Lymph nodes: There is a 1 cm pretracheal lymph node. No pathologically enlarged mediastinal lymph nodes. There is soft tissue fullness in both nathanael suggesting subcentimeter hilar lymph nodes. No discrete node is identified. Bones/joints: Unremarkable. No acute fracture. Soft tissues: Unremarkable. IMPRESSION: 1. No pulmonary embolus or aortic dissection. 2. Extensive diffuse bilateral ground-glass pulmonary opacities.These imaging featrues can be seen with COVID-19 pneumonia although they are nonspecific and can occur with a variety of infectious and noninfectios processes. Dictated and Authenticated by: Quang Kelley MD. Ordering:AD Toney MD
[2019-12-10] MEDS: Normal Saline 1,000 ML 1000 ML IV (22:58)
[2019-12-10 23:01] LABS: D-Dimer 528 ng/mlFEU (<500)
[2019-12-10 23:11] LABS: Absolute Lymphocyte Count 1.73 k/cumm (1.2-3.4); Absolute Monocyte Count 0.58 k/cumm (0.11-0.7)
[2019-12-10 23:12] LABS: Diff Comment Manual Differential; RBC Morphology Normal
[2019-12-10 23:18] LABS: Procalcitonin 0.1 ng/mL
[2019-12-10 23:22] LABS: Ferritin 74 ng/mL (8-252)
[2019-12-10 23:30] LABS: ALT 20 U/L (14-59); AST 30 U/L (15-37); Albumin 3.7 g/dL (3.4-5.0); Alkaline Phosphatase 59 U/L (46-116); Anion Gap 12.3 mmol/L (3-11); BUN 14 mg/dL (7-18); Bilirubin, Total 0.4 mg/dL (0.2-1.0); CO2 21.7 mmol/L (21.0-32.0); CREATININE 1.07 mg/dL (0.55-1.02); Calcium 8.7 mg/dL (8.5-10.1); Chloride 98 mmol/L (98-107); Estimated GFR 59.06 (mL/min/1.73m2); Glucose 115 mg/dL (74-106); Potassium 3.2 mmol/L (3.5-5.1); Sodium 132 mmol/L (136-145); Total Protein 7.9 g/dL (6.4-8.2); Troponin I < 0.05 ng/Ml (<0.06)
[2019-12-10] MEDS: levoFLOXacin 750 MG/150 ML BAG 100 MG IVPB (23:30)
[2019-12-10 23:39] LABS: Bilirubin Negative (Negative); Blood Negative (Negative); Clarity Clear (Clear); Glucose Negative (Negative); Ketones Negative (Negative); Leukocyte Esterase Negative (Negative); Nitrite Negative (Negative); Specific Gravity <= 1.005 (1.005-1.025); Urobilinogen 0.2 EU/dL (Up TO 0.2); pH 5.5 (5-8)
--- NOTE | 2019-12-10 23:47 | HPE_ITS ---
Date of service: 12/11/19 Time of Service: 07:24 Assessment and Plan Assessment and plan (1) Shortness of breath: Status: Acute Assessment and plan: Associated findings include belkis ground glass opacitie s on CT raising suspicion of COVID pneumonia. Low procalcitonin also consistent. However she also has a very high white count and given risk factors I think we should cover for atypical bacterial pneumonia and sent blood and sputum cultures. With her allergies will use levofloxacin. She will be on strict respiratory precautions with COVID PCR pending. I agree with conservative hydration given tachycardia and slight elevation of creatinine, mild hyponatremia that is likely hypovolemic. I will not institute hydroxychloroquine given recent negative studies and guidelines against it's use, as well as risk of QTc prolongation. May consider experimental treatment if course worsens and COVID 19 is confirmed. If she is going positive, will need proper Investigation of her roommates. (2) Asthma: Status: Chronic Assessment and plan: She does have a history of asthma, but not presenting with clear RAD and not hypoxic. I agree with not using IV steroids for now. Continue inhaled steroids and albuterol prn via MDI to limit aerosol. (3) Bipolar disease, chronic: Status: Acute Assessment and plan: Continue outpatient management. Try to limit use of benzodiazepines given chronic opioid use and history, but limited use reasonable for acute anxiety. (4) Tobacco use: Status: Acute Assessment and plan: Offer NRT while inpatient, She declines currently. (5) Chronic pelvic pain in female: Status: Acute Assessment and plan: On pregabalin chronically for chronic pain. She describes fibromyalgia, though this was not on her list. continue pregabalin. Try low-dose Seroquel as an outpatient (6) History of opioid abuse: Status: Acute Assessment and plan: Plan to continue outpatient buprenorphine/naloxone. Confirm with BREE Sykes in AM (7) GERD (gastroesophageal reflux disease): Status: Chronic Assessment and plan: continue outpatient PPI (8) DVT prophylaxis: Status: Acute Assessment and plan: unfractionated heparin given latex allergy (9) Discharge planning issues: Status: Acute History of Present Illness Narrative: 34-year-old female with history of chronic asthma, opioid use disorder on Suboxone, chronic pain, and bipolar affective disorder who is presenting with 1 week of progressive shortness of breath and cough with fever starting the day of admission. Patient states her for symptoms were mild shortness of breath about a week ago. She felt like she might be getting some asthma. Initially her inhalers were helping, but as the week wore on her albuterol was less effective in relieving her shortness of breath. She developed some increasing chest tightness. Her cough is mostly dry. She has felt some increasing lightheadedness associated with her symptoms. When the fever started yesterday, she decided she should go to the emergency room. She has no known exposure to COVID-19 positive patient, but her boyfriend, who lives with her in [place], also has respiratory symptoms currently. There are several other roommates in her apartment that are not sick. Patient states she has been driving around to stores another establishments a lot because she is the only one with a license amongst her roommates. Her [facility] clinic is in [place]. She denies any recent inhalation or snorting of drugs or vaping. She does smoke, but no desire to smoke currently. Of note, she presented with a flu-like illness in early September, states she did not have associated shortness of breath and chest tightness with that illness. Review of Systems Narrative: Patient endorses poor appetite. She has poor hearing, but this is chronic. She states her taste is slightly less than normal. She has a mild pain and the right side of her throat, but no drooling or difficulty swallowing. She feels like she is puffy all over, which she attributes to her chronic fibromyalgia. She is asking for chronic pain and seizure medication. She has diffuse joint pain as well as a knee injury, but nothing new with this illness. All systems reviewed & are unremarkable except as noted in HPI and below PFSH Medical History Asthma (Chronic) Bipolar disease, chronic (Acute) Patient has been hospitalized for suicidal ideation the past currently not taking any medications. Is on disability for mental health issues Chronic pelvic pain in female (Acute) [place] [facility] [place] Gabapentin 300 mg 3 times a day as needed GERD (gastroesophageal reflux disease) (Chronic) Headache (Acute) Imitrex as needed Hearing loss (Acute) Right side conduction loss cholecystectomy treated with titanium insert History of opioid abuse (Acute) Take Suboxone 12 mg SL daily x3yrs. Weekly dosing given at [facility] in [place] PTSD (post-traumatic stress disorder) (Acute) Currently not in counseling Right knee pain (Acute) Awaiting ACL reconstruction Tobacco use (Acute) Has used Chantix off-and-on. Surgical History H/O right knee surgery (Acute) H[place] [facility] [place] and dysmenorrhea. Ovaries conserved. Diagnosis adenomyosis History of cholecystectomy (Chronic) History of laparoscopy (Chronic) 2013. 6 cm right ovarian cyst drained History of tubal ligation (Chronic) [facility] Hx of tonsillectomy (Chronic) Social History (Updated 12/11/19 @ 07:34 by Balaji Levy) Smoking/Tobacco Use Status: Current every day Tobacco Type: cigarettes Quit status: considering quitting Counseling given: provider counseling and other Details: Taking Chantix in order to quit Alcohol Intake: never Drug use: Current Sobriety Substance use type: former substance user Date of last use: 3 years. Suboxone 12 mg daily no relapses Household members: other Details: Has roommate. Boyfriend is named Brian. All 4 children adopted out. Number of Children: 4 current occupation: Unemployed. Receives disability for mental health issues Do you feel safe at home: Yes Do you feel safe in your relationship?: Yes Additional Social history: Lives in [place], household includes boyfriend and other roommates including a baby nephew Meds Home Medications and Allergies Home Medications Medication Instructions Recorded Confirmed Type acetaminophen [Pain Relief] 2 tab PO PRN PRN 09/25/14 12/10/19 History buprenorphine-naloxone [Suboxone] 12 mg PO DAILY 10/21/17 12/10/19 History pantoprazole 40 mg PO DAILY 10/21/17 11/03/19 History Lupron Depot (3 month) 11.2 mg IM Q12W 09/13/19 12/10/19 History buspirone 15 mg PO BID 10/06/19 12/10/19 History albuterol sulfate [ProAir HFA] 2 - 4 puff INHALATION Q4H PRN PRN 12/10/19 12/10/19 History fluticasone propionate [Flovent 2 puff INHALATION BID 12/10/19 12/10/19 History HFA] hydroxyzine pamoate 25 mg PO BID 12/10/19 12/10/19 History lamotrigine 50 mg PO DAILY 12/10/19 12/10/19 History paroxetine HCl 20 mg PO DAILY 12/10/19 12/10/19 History pregabalin 1 mg PO BID 12/10/19 12/10/19 History promethazine 12.5 mg PO Q12H PRN PRN 12/10/19 12/10/19 History riboflavin (vitamin B2) 4,000 mg PO DAILY 12/10/19 12/10/19 History riboflavin (vitamin B2) [Vitamin 4,000 mg PO DAILY 12/10/19 12/10/19 History B-2] topiramate 25 mg PO BID 12/10/19 12/10/19 History Allergies Allergy/AdvReac Type Severity Reaction Status Date / Time doxycycline Allergy Swelling/Ed Unverified 12/10/19 21:59 brynn Penicillins Allergy Anaphylaxsi Unverified 12/10/19 21:59 s azithromycin AdvReac Nausea Unverified 12/10/19 21:59 calcium carbonate [From DHEA] AdvReac Swelling/Ed Unverified 12/10/19 21:59 brynn calcium phosphate,dibasic AdvReac Swelling/Ed Unverified 12/10/19 21:59 [From DHEA] brynn ketorolac AdvReac Nausea Unverified 12/10/19 21:59 latex AdvReac Skin Rash Unverified 12/10/19 21:59 nitrofurantoin AdvReac muscles Unverified 12/10/19 21:59 [From Macrobid] stiffen up all over body nitrofurantoin AdvReac muscles Unverified 12/10/19 21:59 macrocrystalline stiffen up [From Macrobid] all over body prasterone (DHEA) [From DHEA] AdvReac Swelling/Ed Unverified 12/10/19 21:59 brynn silver AdvReac Skin Rash Unverified 12/10/19 21:59 [From Tegaderm AG Mesh] tramadol AdvReac Urinary Unverified 12/10/19 21:59 retention Exam Narrative Exam Narrative: General: Alert, appears uncomfortable, clammy. Oriented x3, coherent and history, speaking in full sentences, pleasant. HEENT: Normocephalic atraumatic. Conjunctive are clear. Pupils equal round reactive to light with extraocular motion intact. No rhinorrhea. Moist mucous membranes. I cannot appreciate any oral pharyngeal lesions. Neck is supple no masses, no lymphadenopathy. Lungs: Diffuse diminished breath sounds, taking shallow breaths. No wheezes or rales appreciated. Cardiovascular: Regular rate and rhythm no murmurs gallops or rubs. GI: Active bowel sounds, soft, nontender nondistended no masses. Extremities: No cyanosis, clubbing, or edema. Legs nontender to palpation. No focal joint redness or swelling. Neurologic: Cranial nerves grossly intact. Normal speech, movement, coordination. No tremor. Skin: No rashes, open wounds, or other skin changes Psychiatric: Mood and affect slightly anxious. Normal thought process. Results Labs Result diagrams: 12/11/19 05:23 12/11/19 05:23 Labs: Laboratory Results - last 24 hr 12/10/19 12/10/19 12/10/19 21:55 21:55 21:55 WBC 28.80 H* RBC 4.86 Hgb 13.7 Hct 39.8 MCV 81.9 MCH 28.2 MCHC 34.4 RDW 13.5 Plt Count 342 MPV 9.8 Immature Gran % 0.0 Neutrophils % 86.0 Band Neutrophils % 6.0 Lymphocytes % 6.0 Monocytes % 2.0 Eosinophils % 0.0 Basophils % 0.0 Absolute Neutrophils 26.50 H Absolute Lymphocytes 1.73 Absolute Monocytes 0.58 Absolute Eosinophils 0.00 Absolute Basophils 0.00 Differential Comment Manual differential RBC Morphology Normal D-Dimer Sodium 132 L Potassium 3.2 L Chloride 98 Carbon Dioxide 21.7 Anion Gap 12.3 H BUN 14 Creatinine 1.07 H Estimated GFR/1.73 m2 59.06 Glucose 115 H Lactate 1.9 H Calcium 8.7 Ferritin Total Bilirubin 0.4 AST 30 ALT 20 Alkaline Phosphatase 59 Lactate Dehydrogenase Troponin I < 0.05 C-Reactive Protein Total Protein 7.9 Albumin 3.7 Procalcitonin Urine Color Urine Clarity Urine pH Ur Specific [place] Urine Protein Urine Ketones Urine Blood Urine Nitrite Urine Bilirubin Urine Urobilinogen Ur Leukocyte Esterase Urine Glucose 12/10/19 12/10/19 12/10/19 21:55 21:55 21:55 WBC RBC Hgb Hct MCV MCH MCHC RDW Plt Count MPV Immature Gran % Neutrophils % Band Neutrophils % Lymphocytes % Monocytes % Eosinophils % Basophils % Absolute Neutrophils Absolute Lymphocytes Absolute Monocytes Absolute Eosinophils Absolute Basophils Differential Comment RBC Morphology D-Dimer 528 H Sodium Potassium Chloride Carbon Dioxide Anion Gap BUN Creatinine Estimated GFR/1.73 m2 Glucose Lactate Calcium Ferritin 74 Total Bilirubin AST ALT Alkaline Phosphatase Lactate Dehydrogenase 332 H Troponin I C-Reactive Protein 1.74 H Total Protein Albumin Procalcitonin 0.1 Urine Color Urine Clarity Urine pH Ur Specific [place] Urine Protein Urine Ketones Urine Blood Urine Nitrite Urine Bilirubin Urine Urobilinogen Ur Leukocyte Esterase Urine Glucose 12/10/19 23:30 WBC RBC Hgb Hct MCV MCH MCHC RDW Plt Count MPV Immature Gran % Neutrophils % Band Neutrophils % Lymphocytes % Monocytes % Eosinophils % Basophils % Absolute Neutrophils Absolute Lymphocytes Absolute Monocytes Absolute Eosinophils Absolute Basophils Differential Comment RBC Morphology D-Dimer Sodium Potassium Chloride Carbon Dioxide Anion Gap BUN Creatinine Estimated GFR/1.73 m2 Glucose Lactate Calcium Ferritin Total Bilirubin AST ALT Alkaline Phosphatase Lactate Dehydrogenase Troponin I C-Reactive Protein Total Protein Albumin Procalcitonin Urine Color Yellow Urine Clarity Clear Urine pH 5.5 Ur Specific [place] <= 1.005 Urine Protein Negative Urine Ketones Negative Urine Blood Negative Urine Nitrite Negative Urine Bilirubin Negative Urine Urobilinogen 0.2 Ur Leukocyte Esterase Negative Urine Glucose Negative Last Vital Signs Temp 37.8 C H 12/10/19 21:50 Pulse 125 H 12/10/19 22:50 Resp 29 H 12/10/19 22:50 BP 101/62 12/10/19 22:50 Pulse Ox 94 L 12/10/19 22:50 COVID-19 Screening Traveled to [place] from one of the affected countries or regions?: NO Recent travel in the [place] within the last 14 days?: No Recent out of the country travel within the last 14 days?: No Exposure or possible exposure to illness during travel?: Yes Had IN PERSON contact w/suspected or confirmed C-19 person: Yes Have you had the following symptoms in the past few days?: Yes Symptoms noted since travel?: Fever and Lower Respiratory
[2019-12-11] VITALS (36 sets, daily range): BP systolic 93–185; BP diastolic 34–79; PULSE 70–125; RESP 19–33; TEMP 37–38.2; O2SAT 88–96
[2019-12-11] MEDS: Potassium Chloride 20 MEQ TABCR 40 MEQ PO (01:34)
[2019-12-11] MEDS: Normal Saline Flush 10 ML SYR IVP ×4 (01:34→21:43)
[2019-12-11] MEDS: Acetaminophen 325 MG TAB PO (05:06)
[2019-12-11 05:31] LABS: Lactate 0.9 mmol/L (0.6-1.4)
[2019-12-11 05:37] LABS: Abs Immature Grans 0.14 k/cumm (0.0-0.09); Basophils % 0.1; HCT 36.3 % (36.0-46.0); HGB 12.7 g/dL (12.0-15.5); Immature Grans % 0.5 %; Lymphocytes % 11.2; Mean Corpuscular Hemoglobin 28.5 pg (27.0-33.0); Mean Corpuscular Volume 81.6 fL (80-95); Mean Platelet Volume 9.5 fL (8.0-11.0); Monocytes % 2.5; Neutrophils % 85.7; Platelet Count 300 x1000/uL (130-400); RBC 4.45 m/cumm (4.00-5.20); RBC Distribution Width 13.5 % (11.7-14.6)
[2019-12-11 05:38] LABS: Absolute Basophil Count 0.03 k/cumm (0.0-0.2); Absolute Lymphocyte Count 3.25 k/cumm (1.2-3.4); Absolute Monocyte Count 0.73 k/cumm (0.11-0.7); White Blood Cell Count 29.06 k/cumm (4.4-10.8)
[2019-12-11 05:46] LABS: Anion Gap 8.6 mmol/L (3-11); BUN 13 mg/dL (7-18); CO2 23.4 mmol/L (21.0-32.0); CREATININE 0.95 mg/dL (0.55-1.02); Chloride 104 mmol/L (98-107); Glucose 123 mg/dL (74-106); Potassium 3.6 mmol/L (3.5-5.1); Sodium 136 mmol/L (136-145)
[2019-12-11 05:47] LABS: Magnesium 1.7 mg/dL (1.8-2.4)
[2019-12-11] MEDS: Heparin 5,000 UNITS/ML VIAL 5000 UNITS SC (08:10)
[2019-12-11] MEDS: PARoxetine 20 MG TAB PO (08:10)
[2019-12-11] MEDS: busPIRone 15 MG TAB PO ×2 (08:11→21:27)
[2019-12-11] MEDS: hydrOXYzine PAMOATE 25 MG CAP PO ×2 (08:12→21:27)
[2019-12-11] MEDS: Pantoprazole 40 MG TABCR PO (08:12)
[2019-12-11] MEDS: lamoTRIgine 25 MG TAB 75 MG PO (08:14)
[2019-12-11] MEDS: Mometasone 220 MCG 14 DOSE INHALER 2 PUFF IH ×2 (08:15→21:42)
[2019-12-11] MEDS: Topiramate 25 MG TAB PO (08:17)
--- NOTE | 2019-12-11 09:52 | PDOC.CMIN ---
- If Service Date Differs Date of service: 12/11/19 Time of Service: 15:18 Care Management Initial Assess REASON FOR HOSPITALIZATION:: Pneumonia PAST MEDICAL HISTORY/PAST SURGICAL HISTORY:: Asthma, bipolar disease, chronic pelvic pain in female, GERD, headache, hearing loss, opioid abuse; [facility] client, PTSD not currently in treatment, right knee pain awaiting ACL reconstruction, tobacco us, right knee surgery, toatl vaginal hysterectomy, cholecystectomy, laparoscopy, tubal ligation, tonsillectomy. PREVIOUS FUNCTIONAL STATUS/SOCIAL/FAMILY SUPPORTS:: Raquel was previously staying with friends in [place], [place]. Her significant other, Des resides in [place], [place]. She previously recieved her care at [facility]. CURRENT FUNCTIONAL STATUS:: Raquel is in the RCU, being closely monitored at this time. CM will continue to follow. ADVANCE DIRECTIVES:: None on file at [facility]. Has patient been provided with information about the portal?: No Did the patient sign up for the portal?: No CODE STATUS:: Full Code INSURANCE COVERAGE / FINANCIAL ISSUES:: Medicaid CURRENT HOME/COMMUNITY SERVICES/EQUIPMENT:: [facility] substance abuse maintenance program. PRIMARY CARE PHYSICIAN:: Nicole Jones POTENTIAL DISCHARGE NEEDS:: Discussion around community based supports; possible referrals for attachment to increased services. Follow up appointments. PATIENT/FAMILY EDUCATION NEEDS:: Review community based supports, discharge instructions, Ask Me Three. ANTICIPATED BARRIERS TO DISCHARGE:: None identified. TRANSPORTATION:: RCT or with a friend. PLAN:: Raquel continues to be closely monitored in the RCU at this time. Anticipate she will return home when ready per MD, follow up with her PCP and plan of care as prescribed. Additional service supports explored with this story writer. She will transport via private vehicle with a friend or via RCT.
[2019-12-11] MEDS: Topiramate 25 MG TAB 50 MG PO (11:00)
[2019-12-11] MEDS: Magnesium Oxide 400 MG TAB PO ×2 (11:01→23:23)
[2019-12-11] MEDS: PREGABALIN 150 MG CAP PO ×2 (11:02→21:27)
--- NOTE | 2019-12-11 11:51 | PHA.REVIEW ---
Pharmacy Admission Review - Admission Clinical Review (Last Updated 12/10/19 @ 23:50 by Balaji Levy) Discharge planning issues (Acute) DVT prophylaxis (Acute) Ground glass opacity present on imaging of lung (Acute) Shortness of breath (Acute) History of opioid abuse (Acute) Bipolar disease, chronic (Acute) Tobacco use (Acute) Chronic pelvic pain in female (Acute) doxycycline Allergy (Unverified 12/10/19 21:59) Swelling/Edema Penicillins Allergy (Unverified 12/10/19 21:59) Anaphylaxsis azithromycin Adverse Reaction (Unverified 12/10/19 21:59) Nausea calcium carbonate [From DHEA] Adverse Reaction (Unverified 12/10/19 21:59) Swelling/Edema calcium phosphate,dibasic [From DHEA] Adverse Reaction (Unverified 12/10/19 21:59) Swelling/Edema ketorolac Adverse Reaction (Unverified 12/10/19 21:59) Nausea latex Adverse Reaction (Unverified 12/10/19 21:59) Skin Rash nitrofurantoin [From Macrobid] Adverse Reaction (Unverified 12/10/19 21:59) muscles stiffen up all over body nitrofurantoin macrocrystalline [From Macrobid] Adverse Reaction (Unverified 12/10/19 21:59) muscles stiffen up all over body prasterone (DHEA) [From DHEA] Adverse Reaction (Unverified 12/10/19 21:59) Swelling/Edema silver [From Tegaderm AG Mesh] Adverse Reaction (Unverified 12/10/19 21:59) Skin Rash tramadol Adverse Reaction (Unverified 12/10/19 21:59) Urinary retention Height 5 ft 1 in Weight 109 kg - Renal Dosing Renal Dosing: BUN 13 mg/dL (7-18) 12/11/19 05:23 Creatinine 0.95 mg/dL (0.55-1.02) 12/11/19 05:23 Medications needing adjustments: Reviewed (est CrCl~ 63.5 mL/min Meds-OK) - Anticoagulation Anticoagulation: Hgb 12.7 g/dL (12.0-15.5) 12/11/19 05:23 Hct 36.3 % (36.0-46.0) 12/11/19 05:23 Plt Count 300 x1000/uL (130-400) 12/11/19 05:23 Creatinine 0.95 mg/dL (0.55-1.02) 12/11/19 05:23 Medications: Heparin - Opiate Usage Evaluate Pain Scale/Pains Meds: Reviewed (On Suboxone) Scheduled Bowel Reg ordered if on Opiates?: Yes - Relevant Labs Sodium 136 mmol/L (136-145) 12/11/19 05:23 Potassium 3.6 mmol/L (3.5-5.1) 12/11/19 05:23 Chloride 104 mmol/L (98-107) 12/11/19 05:23 Magnesium 1.7 mg/dL (1.8-2.4) L 12/11/19 05:23 C-Reactive Protein 1.74 mg/dL (0.0-0.3) H 12/10/19 21:55 Electrolytes, C-Reactive P, ESR: Reviewed (MagOx ordered) - DM Control DM Control: Glucose 123 mg/dL (74-106) H 12/11/19 05:23 Insulin Dosing: N/A - Heart Failure/ID Heart Failure/ID: Troponin I < 0.05 ng/Ml (<0.06) 12/10/19 21:55 EF%, DANDRE's, B-Blockers, Diuretics: N/A - BP Control BP Control: Blood Pressure 113/73 Blood Pressure 109/46 Blood Pressure 105/67 Blood Pressure 122/76 Blood Pressure 119/63 Blood Pressure 116/78 Blood Pressure 119/63 Blood Pressure 110/34 Blood Pressure 114/68 If elevated: N/A - Qtc Review If Elevated: Reviewed (QTc-456 (On Levaquin 750mg iv q24hrs) Suboxone, Protonix, Phenergan) - IV to PO Switch IV Medications: Reviewed (Continue Levaquin IV for now) - Home Meds Home Med List reviewed: Reviewed (Awaiting Riboflavin (patOwn) From Home, Flovent not ordered) - Current meds Current Medication Order Review: Reviewed (PREGABALIN DOSE CORRECTED) - Comments Comments/Follow Ups: AWAITING COVID-19 RESULTS PENDING
[2019-12-11 13:37] LABS: COVID-19 RT-PCR UVMMC Result Negative (Negative)
--- NOTE | 2019-12-11 16:07 | PGE_ITS ---
Date of Service Date of service: 12/11/19 Time of Service: 16:07 Assessment and Plan Assessment and plan (1) Bilateral pneumonia: Status: Acute Assessment and plan: This is probably viral. COVID negative?trust that this is not a false negative. Extended viral PCR has been ordered. Cannot rule out the possibility of bacterial process. Continue Levaquin (multiple drug julia rgies) and monitor response. Monitor oxygen requirement. (2) Asthma: Status: Chronic Assessment and plan: No wheezing at present. I do not see a role for systemic steroids now. Continue inhaled corticosteroids. Short acting beta agonist as needed (3) History of opioid abuse: Status: Chronic Assessment and plan: Declines Suboxone today because of nausea. States that she usually does not experience withdrawal symptoms until third day without Suboxone. No change in dosing planned. (4) Bipolar disease, chronic: Status: Chronic Assessment and plan: Continue her outpatient meds at the current dosages. (5) Leukocytosis: Status: Acute Assessment and plan: Probably in response to infectious pneumonia. Continue to monitor. (6) COVID-19 ruled out by laboratory testing: Status: Acute Assessment and plan: PCR negative Subjective Subjective Interval history since last seen: Complains of feeling generally unwell, nauseated but has not had vomiting. In fact, states that she is too nauseated to take her usual Suboxone dose. Has some central chest discomfort with deep breathing achy in nature, not pleuritic. Has not had much in the way of a c ough. No diarrhea. COVID PCR has returned negative. Sinus rhythm on telemetry with slow but steady slowing of her heart rate. Exam Narrative Exam Narrative: Presents as tired. No acute respiratory distress. SaO2 92% on room air. No scleral icterus. Poor dentition. No JVD. Lungs good aeration, no wheezing heard. A few initial inspiratory crackles in the left midlung field then clear. No rub. Regular heart rhythm without murmur S3 or S4. Nontender abdomen. Bowel sounds present. No ankle edema. Good pulses distally. Objective Objective Clinical Data: Abnormal lab results 12/10/19 12/10/19 12/10/19 Range/Units 21:55 21:55 21:55 WBC 28.80 H* (4.4-10.8) k/cumm Absolute Neutrophils 26.50 H (1.2-6.7) k/cumm Absolute Monocytes (0.11-0.7) k/cumm D-Dimer (<500) ng/mlFEU Sodium 132 L (136-145) mmol/L Potassium 3.2 L (3.5-5.1) mmol/L Anion Gap 12.3 H (3-11) mmol/L Creatinine 1.07 H (0.55-1.02) mg/dL Glucose 115 H (74-106) mg/dL Lactate 1.9 H (0.6-1.4) mmol/L Calcium (8.5-10.1) mg/dL Magnesium (1.8-2.4) mg/dL Lactate Dehydrogenase (81-234) U/L C-Reactive Protein (0.0-0.3) mg/dL 12/10/19 12/10/19 12/11/19 Range/Units 21:55 21:55 05:23 WBC (4.4-10.8) k/cumm Absolute Neutrophils (1.2-6.7) k/cumm Absolute Monocytes (0.11-0.7) k/cumm D-Dimer 528 H (<500) ng/mlFEU Sodium (136-145) mmol/L Potassium (3.5-5.1) mmol/L Anion Gap (3-11) mmol/L Creatinine (0.55-1.02) mg/dL Glucose 123 H (74-106) mg/dL Lactate (0.6-1.4) mmol/L Calcium 8.0 L (8.5-10.1) mg/dL Magnesium (1.8-2.4) mg/dL Lactate Dehydrogenase 332 H (81-234) U/L C-Reactive Protein 1.74 H (0.0-0.3) mg/dL 12/11/19 12/11/19 Range/Units 05:23 05:23 WBC 29.06 H* (4.4-10.8) k/cumm Absolute Neutrophils 24.90 H (1.2-6.7) k/cumm Absolute Monocytes 0.73 H (0.11-0.7) k/cumm D-Dimer (<500) ng/mlFEU Sodium (136-145) mmol/L Potassium (3.5-5.1) mmol/L Anion Gap (3-11) mmol/L Creatinine (0.55-1.02) mg/dL Glucose (74-106) mg/dL Lactate (0.6-1.4) mmol/L Calcium (8.5-10.1) mg/dL Magnesium 1.7 L (1.8-2.4) mg/dL Lactate Dehydrogenase (81-234) U/L C-Reactive Protein (0.0-0.3) mg/dL Vital Signs Temperature 37 C 12/11/19 11:08 Temperature Source Tympanic 12/11/19 11:08 Pulse 87 12/11/19 11:08 Pulse Rhythm Regular 12/11/19 07:33 Pulse 97 H 12/11/19 07:15 Respiratory Rate 20 12/11/19 11:30 Respiratory Effort 12/11/19 11:30 Respiratory Depth Shallow 12/11/19 11:30 Respiratory Pattern Normal 12/11/19 11:30 Blood Pressure 113/73 12/11/19 11:08 Blood Pressure Mean 74 12/11/19 00:31 Blood Pressure Position Sitting 12/10/19 21:50 Pulse Oximetry 92 L 12/11/19 13:52 Oxygen Delivery Method Room Air 12/11/19 13:52 Oxygen Flow Rate 0 12/11/19 13:52 Pain Level 0 12/11/19 11:08 Comment 12/11/19 11:08 Intake & Output 12/10/19 12/11/19 12/11/19 23:59 11:59 23:59 Intake Total 1150 / 1150 Output Total 1450 / 1450 Balance -300 / -300 Weight 109 kg 109 kg Intake: IV 1150 / 1150 Output: Urine 1450 / 1450 Other: Urine Color Yellow Urine Appearance Clear Urine Odor None Comment voided independently using bedside commode. no odor detected but have papr on. Voiding Methods Bedside Commode Laboratory Results WBC 29.06 k/cumm (4.4-10.8) H* 12/11/19 05:23 RBC 4.45 m/cumm (4.00-5.20) 12/11/19 05:23 Hgb 12.7 g/dL (12.0-15.5) 12/11/19 05:23 Hct 36.3 % (36.0-46.0) 12/11/19 05:23 MCV 81.6 fL (80-95) 12/11/19 05:23 MCH 28.5 pg (27.0-33.0) 12/11/19 05:23 MCHC 35.0 g/dL (32.0-36.0) 12/11/19 05:23 RDW 13.5 % (11.7-14.6) 12/11/19 05:23 Plt Count 300 x1000/uL (130-400) 12/11/19 05:23 MPV 9.5 fL (8.0-11.0) 12/11/19 05:23 Immature Gran % 0.5 % 12/11/19 05:23 Neutrophils % 85.7 12/11/19 05:23 Band Neutrophils % 6.0 % 12/10/19 21:55 Lymphocytes % 11.2 12/11/19 05:23 Monocytes % 2.5 12/11/19 05:23 Eosinophils % 0.0 12/11/19 05:23 Basophils % 0.1 12/11/19 05:23 Absolute Neutrophils 24.90 k/cumm (1.2-6.7) H 12/11/19 05:23 Absolute Lymphocytes 3.25 k/cumm (1.2-3.4) 12/11/19 05:23 Absolute Monocytes 0.73 k/cumm (0.11-0.7) H 12/11/19 05:23 Absolute Eosinophils 0.00 k/cumm (0.0-0.7) 12/11/19 05:23 Absolute Basophils 0.03 k/cumm (0.0-0.2) 12/11/19 05:23 Differential Comment Manual differential 12/10/19 21:55 RBC Morphology Normal 12/10/19 21:55 D-Dimer 528 ng/mlFEU (<500) H 12/10/19 21:55 Sodium 136 mmol/L (136-145) 12/11/19 05:23 Potassium 3.6 mmol/L (3.5-5.1) 12/11/19 05:23 Chloride 104 mmol/L (98-107) 12/11/19 05:23 Carbon Dioxide 23.4 mmol/L (21.0-32.0) 12/11/19 05:23 Anion Gap 8.6 mmol/L (3-11) 12/11/19 05:23 BUN 13 mg/dL (7-18) 12/11/19 05:23 Creatinine 0.95 mg/dL (0.55-1.02) 12/11/19 05:23 Estimated GFR/1.73 m2 >= 60.00 (mL/min/1.73m2) 12/11/19 05:23 Glucose 123 mg/dL (74-106) H 12/11/19 05:23 Lactate 0.9 mmol/L (0.6-1.4) 12/11/19 05:23 Calcium 8.0 mg/dL (8.5-10.1) L 12/11/19 05:23 Magnesium 1.7 mg/dL (1.8-2.4) L 12/11/19 05:23 Ferritin 74 ng/mL (8-252) 12/10/19 21:55 Total Bilirubin 0.4 mg/dL (0.2-1.0) 12/10/19 21:55 AST 30 U/L (15-37) 12/10/19 21:55 ALT 20 U/L (14-59) 12/10/19 21:55 Alkaline Phosphatase 59 U/L (46-116) 12/10/19 21:55 Lactate Dehydrogenase 332 U/L (81-234) H 12/10/19 21:55 Troponin I < 0.05 ng/Ml (<0.06) 12/10/19 21:55 C-Reactive Protein 1.74 mg/dL (0.0-0.3) H 12/10/19 21:55 Total Protein 7.9 g/dL (6.4-8.2) 12/10/19 21:55 Albumin 3.7 g/dL (3.4-5.0) 12/10/19 21:55 Procalcitonin 0.1 ng/mL 12/10/19 21:55 Urine Color Yellow (Yellow) 12/10/19 23:30 Urine Clarity Clear (Clear) 12/10/19 23:30 Urine pH 5.5 (5-8) 12/10/19 23:30 Ur Specific [place] <= 1.005 (1.005-1.025) 12/10/19 23:30 Urine Protein Negative mg/dL (Negative) 12/10/19 23:30 Urine Ketones Negative mg/dL (Negative) 12/10/19 23:30 Urine Blood Negative (Negative) 12/10/19 23:30 Urine Nitrite Negative (Negative) 12/10/19 23:30 Urine Bilirubin Negative (Negative) 12/10/19 23:30 Urine Urobilinogen 0.2 EU/dL (Up TO 0.2) 12/10/19 23:30 Ur Leukocyte Esterase Negative (Negative) 12/10/19 23:30 Urine Glucose Negative mg/dL (Negative) 12/10/19 23:30 COVID-19 PCR Negative (Negative) 12/10/19 21:45 Nasopharyn COVID-19 PCR Not Applicable 12/10/19 21:45 Ref Test Perform Site [facility] hospital lab 12/10/19 21:45
[2019-12-11] MEDS: ACETAMINOPHEN 1,000 MG/100 ML BTL 400 MG IVPB (18:37)
[2019-12-11] MEDS: Topiramate 25 MG TAB 75 MG PO (21:28)
[2019-12-11] MEDS: levoFLOXacin 750 MG/150 ML BAG 100 MG IVPB (21:42)
[2019-12-11] MEDS: Cholecalciferol (Vitamin D3) 400 UNIT TAB PO (23:23)
[2019-12-11] MEDS: Buprenorphine/Naloxone 12 mg/3 mg FILM 1 EACH SL (23:24)
[2019-12-11] MEDS: lamoTRIgine 25 MG TAB 50 MG PO (23:24)
[2019-12-12] VITALS (11 sets, daily range): BP systolic 90–140; BP diastolic 58–84; PULSE 96–110; RESP 1–24; TEMP 37–37.7; O2SAT 93–99
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
[2019-12-12 07:19] LABS: HCT 35.5 % (36.0-46.0); Mean Corp. HGB Concentration 33.8 g/dL (32.0-36.0); Mean Corpuscular Hemoglobin 28.4 pg (27.0-33.0); Mean Corpuscular Volume 83.9 fL (80-95); Mean Platelet Volume 9.9 fL (8.0-11.0); Platelet Count 294 x1000/uL (130-400); RBC 4.23 m/cumm (4.00-5.20); RBC Distribution Width 14.1 % (11.7-14.6); White Blood Cell Count 15.99 k/cumm (4.4-10.8)
[2019-12-12] MEDS: busPIRone 15 MG TAB PO ×2 (08:10→20:42)
[2019-12-12] MEDS: hydrOXYzine PAMOATE 25 MG CAP PO ×2 (08:11→20:42)
[2019-12-12] MEDS: PREGABALIN 150 MG CAP PO ×2 (08:11→20:42)
[2019-12-12] MEDS: PARoxetine 20 MG TAB PO (08:11)
[2019-12-12] MEDS: Topiramate 25 MG TAB 75 MG PO ×2 (08:11→20:43)
[2019-12-12] MEDS: Mometasone 220 MCG 14 DOSE INHALER 2 PUFF IH ×2 (08:18→21:49)
[2019-12-12 12:05] LABS: *AMPHETAMINES SCREEN URINE Negative (Negative); *BARBITURATES SCREEN URINE Negative (Negative); *BENZODIAZEPINES SCREEN URINE Negative (Negative); Cannabinoids THC Negative (Negative); Cocaine Screen,Urine Negative (Negative); METHADONE URINE SCREEN Negative (Negative); OPIATES URINE SCREEN POSITIVE (Negative)
[2019-12-12 12:07] LABS: Tricyclic Antidepressants Negative (Negative)
[2019-12-12] MEDS: Buprenorphine/Naloxone 12 mg/3 mg FILM 1 EACH SL (12:18)
[2019-12-12] MEDS: Albuterol/Ipratropium 3 ML UPD VIAL UPD ×2 (13:16→18:20)
--- NOTE | 2019-12-12 13:21 | PGE_ITS ---
Date of Service Date of service: 12/12/19 Time of Service: 13:21 Assessment and Plan Assessment and plan (1) Bilateral pneumonia: Status: Acute Assessment and plan: Leucocytosis with left shift as well as improvement in the white count since being initiated on antibiotics suggests that the process is bacterial. Repeat Procalcitonin and CRP tomorrow. Continue levofloxacin. Inhalation pneumonitis cannot be ruled out - but UDS does not show any surprises. Obtain sputum culture. Change from inhalers to nebs as COVID negative. Await viral PCR. Wean O2 as tolerated (currently requiring 1 L). Likely responsible for chest pain. (2) Asthma: Status: Chronic Assessment and plan: As the patient is so short of breath, will start steroids and monitor. Continue inhaled corticosteroids. Short acting beta agonist -upgrade to nebs (3) History of opioid abuse: Status: Chronic Assessment and plan: Continue suboxone (4) Bipolar disease, chronic: Status: Chronic Assessment and plan: Continue outpatient therapy (5) COVID-19 ruled out by laboratory testing: Status: Acute Assessment and plan: PCR negative (6) DVT prophylaxis: Status: Acute Assessment and plan: Not indicated in an ambulatory 34 year old (7) Discharge planning issues: Status: Acute Assessment and plan: Full code Continues to require hospitalization Subjective Subjective Interval history since last seen: Ms Edwards complained of substernal chest pain to nursing. When I came to evaluate her, she states this has been going on for 2 weeks. Denies dizziness, endorses shortness of breath on minimal exertion, denies nausea. Pain really feels more like tightness. She does not know if breathing treatments help it because she hasn't had any yet - she is about to. Exam Narrative Exam Narrative: General: Anxious, obese female, talking on a cell phone when I came to examine her, speaking in 3-4 word phrases prior to taking a deep breath, looks mildly dyspneic/tachypneic HEENT: EOMI, MMM Heart: RRR, no m/r/g Lungs: Good B air entry without rhonchi Abdomen: soft, nondistended Extremities: no e/c/c BLE's Objective Objective Clinical Data: Abnormal lab results 12/12/19 12/12/19 Range/Units 07:00 11:31 WBC 15.99 H D (4.4-10.8) k/cumm Hct 35.5 L (36.0-46.0) % Urine Opiates Screen Positive A (Negative) Vital Signs Temperature 37.3 C 12/12/19 13:10 Temperature Source Tympanic 12/12/19 13:10 Pulse 98 H 12/12/19 13:16 Pulse Rhythm Regular 12/12/19 08:00 Pulse 97 H 12/11/19 07:15 Respiratory Rate 18 12/12/19 13:16 Respiratory Effort 12/12/19 08:00 Respiratory Depth Normal 12/12/19 08:00 Respiratory Pattern Normal 12/12/19 08:00 Blood Pressure 128/81 12/12/19 13:10 Blood Pressure Mean 74 12/11/19 00:31 Blood Pressure Position Sitting 12/10/19 21:50 Pulse Oximetry 95 12/12/19 13:16 Oxygen Delivery Method Nasal Cannula 12/12/19 13:16 Oxygen Flow Rate 1 12/12/19 13:16 Pain Level 8 12/12/19 13:10 Comment 12/12/19 05:15 Intake & Output 12/11/19 12/12/19 12/12/19 23:59 11:59 23:59 Intake Total 150 / 1300 Output Total 700 / 2150 850 / 850 Balance -550 / -850 -850 / -850 Intake: IV 150 / 1300 Output: Urine 700 / 2150 850 / 850 Other: Urine Color Dark Victorina Dark Victorina Urine Appearance Clear Clear Urine Odor Strong Voiding Methods Toilet Toilet Laboratory Results WBC 15.99 k/cumm (4.4-10.8) H D 12/12/19 07:00 RBC 4.23 m/cumm (4.00-5.20) 12/12/19 07:00 Hgb 12.0 g/dL (12.0-15.5) 12/12/19 07:00 Hct 35.5 % (36.0-46.0) L 12/12/19 07:00 MCV 83.9 fL (80-95) 12/12/19 07:00 MCH 28.4 pg (27.0-33.0) 12/12/19 07:00 MCHC 33.8 g/dL (32.0-36.0) 12/12/19 07:00 RDW 14.1 % (11.7-14.6) 12/12/19 07:00 Plt Count 294 x1000/uL (130-400) 12/12/19 07:00 MPV 9.9 fL (8.0-11.0) 12/12/19 07:00 Immature Gran % 0.5 % 12/11/19 05:23 Neutrophils % 85.7 12/11/19 05:23 Band Neutrophils % 6.0 % 12/10/19 21:55 Lymphocytes % 11.2 12/11/19 05:23 Monocytes % 2.5 12/11/19 05:23 Eosinophils % 0.0 12/11/19 05:23 Basophils % 0.1 12/11/19 05:23 Absolute Neutrophils 24.90 k/cumm (1.2-6.7) H 12/11/19 05:23 Absolute Lymphocytes 3.25 k/cumm (1.2-3.4) 12/11/19 05:23 Absolute Monocytes 0.73 k/cumm (0.11-0.7) H 12/11/19 05:23 Absolute Eosinophils 0.00 k/cumm (0.0-0.7) 12/11/19 05:23 Absolute Basophils 0.03 k/cumm (0.0-0.2) 12/11/19 05:23 Differential Comment Manual differential 12/10/19 21:55 RBC Morphology Normal 12/10/19 21:55 D-Dimer 528 ng/mlFEU (<500) H 12/10/19 21:55 Sodium 136 mmol/L (136-145) 12/11/19 05:23 Potassium 3.6 mmol/L (3.5-5.1) 12/11/19 05:23 Chloride 104 mmol/L (98-107) 12/11/19 05:23 Carbon Dioxide 23.4 mmol/L (21.0-32.0) 12/11/19 05:23 Anion Gap 8.6 mmol/L (3-11) 12/11/19 05:23 BUN 13 mg/dL (7-18) 12/11/19 05:23 Creatinine 0.95 mg/dL (0.55-1.02) 12/11/19 05:23 Estimated GFR/1.73 m2 >= 60.00 (mL/min/1.73m2) 12/11/19 05:23 Glucose 123 mg/dL (74-106) H 12/11/19 05:23 Lactate 0.9 mmol/L (0.6-1.4) 12/11/19 05:23 Calcium 8.0 mg/dL (8.5-10.1) L 12/11/19 05:23 Magnesium 1.7 mg/dL (1.8-2.4) L 12/11/19 05:23 Ferritin 74 ng/mL (8-252) 12/10/19 21:55 Total Bilirubin 0.4 mg/dL (0.2-1.0) 12/10/19 21:55 AST 30 U/L (15-37) 12/10/19 21:55 ALT 20 U/L (14-59) 12/10/19 21:55 Alkaline Phosphatase 59 U/L (46-116) 12/10/19 21:55 Lactate Dehydrogenase 332 U/L (81-234) H 12/10/19 21:55 Troponin I < 0.05 ng/Ml (<0.06) 12/10/19 21:55 C-Reactive Protein 1.74 mg/dL (0.0-0.3) H 12/10/19 21:55 Total Protein 7.9 g/dL (6.4-8.2) 12/10/19 21:55 Albumin 3.7 g/dL (3.4-5.0) 12/10/19 21:55 Procalcitonin 0.1 ng/mL 12/10/19 21:55 Urine Color Yellow (Yellow) 12/10/19 23:30 Urine Clarity Clear (Clear) 12/10/19 23: Urine pH 5.5 (5-8) 12/10/19 23:30 Ur Specific [place] <= 1.005 (1.005-1.025) 12/10/19 23:30 Urine Protein Negative mg/dL (Negative) 12/10/19 23:30 Urine Ketones Negative mg/dL (Negative) 12/10/19 23:30 Urine Blood Negative (Negative) 12/10/19 23:30 Urine Nitrite Negative (Negative) 12/10/19 23:30 Urine Bilirubin Negative (Negative) 12/10/19 23:30 Urine Urobilinogen 0.2 EU/dL (Up TO 0.2) 12/10/19 23:30 Ur Leukocyte Esterase Negative (Negative) 12/10/19 23:30 Urine Glucose Negative mg/dL (Negative) 12/10/19 23:30 Urine Opiates Screen Positive (Negative) A 12/12/19 11:31 Urine Methadone Screen Negative (Negative) 12/12/19 11:31 Ur Barbiturates Screen Negative (Negative) 12/12/19 11:31 Ur Tricyclics Screen Negative (Negative) 12/12/19 11:31 Ur Amphetamines Screen Negative (Negative) 12/12/19 11:31 U Benzodiazepines Scrn Negative (Negative) 12/12/19 11:31 Urine Cocaine Screen Negative (Negative) 12/12/19 11:31 Ur THC Screen Negative (Negative) 12/12/19 11:31 COVID-19 PCR Negative (Negative) 12/10/19 21:45 Nasopharyn COVID-19 PCR Not Applicable 12/10/19 21:45 Ref Test Perform Site [facility] hospital lab 12/10/19 21:45
[2019-12-12] MEDS: Mylanta Suspension 30 ML CUP (13:27)
[2019-12-12] MEDS: Acetaminophen 325 MG TAB PO (13:27)
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
[2019-12-12] MEDS: predniSONE 20 MG TAB 40 MG PO (17:47)
[2019-12-12 18:03] LABS: Adenovirus DNA Result Negative (Negative); Metapneumovirus RNA Result Negative (Negative); Parainfluenza Type1 RNA Result Negative (Negative); Parainfluenza Type2 RNA Result Negative (Negative); Parainfluenza Type3 RNA Result Negative (Negative); Parainfluenza Type4 RNA Result Negative (Negative); Rhinovirus RNA Result Negative (Negative)
[2019-12-12] MEDS: Cholecalciferol (Vitamin D3) 400 UNIT TAB PO (20:41)
[2019-12-12] MEDS: lamoTRIgine 25 MG TAB 50 MG PO (20:41)
[2019-12-12] MEDS: Magnesium Oxide 400 MG TAB PO (20:41)
[2019-12-12] MEDS: levoFLOXacin 750 MG/150 ML BAG 100 MG IVPB (21:49)
[2019-12-12] MEDS: Pantoprazole 40 MG TABCR PO (22:38)
[2019-12-13] VITALS (8 sets, daily range): BP systolic 111–125; BP diastolic 67–76; PULSE 92–118; RESP 1–22; TEMP 36.6–37.4; O2SAT 95–98
[2019-12-13] MEDS: Albuterol/Ipratropium 3 ML UPD VIAL UPD ×3 (01:22→18:24)
[2019-12-13 07:14] LABS: Abs Immature Grans 0.02 k/cumm (0.0-0.09); Absolute Lymphocyte Count 1.41 k/cumm (1.2-3.4); Absolute Monocyte Count 0.66 k/cumm (0.11-0.7); Absolute Neutrophil Count 8.58 k/cumm (1.2-6.7); HCT 34.5 % (36.0-46.0); HGB 11.6 g/dL (12.0-15.5); Immature Grans % 0.2 %; Lymphocytes % 13.2; Mean Corp. HGB Concentration 33.6 g/dL (32.0-36.0); Mean Corpuscular Hemoglobin 28.4 pg (27.0-33.0); Mean Corpuscular Volume 84.4 fL (80-95); Mean Platelet Volume 9.8 fL (8.0-11.0); Monocytes % 6.2; Neutrophils % 80.4; Platelet Count 304 x1000/uL (130-400); RBC 4.09 m/cumm (4.00-5.20); RBC Distribution Width 13.6 % (11.7-14.6); White Blood Cell Count 10.67 k/cumm (4.4-10.8)
[2019-12-13 07:25] LABS: C-Reactive Protein 11.09 mg/dL (0.0-0.3)
[2019-12-13 07:31] LABS: Anion Gap 6.9 mmol/L (3-11); BUN 13 mg/dL (7-18); CO2 23.1 mmol/L (21.0-32.0); Calcium 9.1 mg/dL (8.5-10.1); Chloride 105 mmol/L (98-107); Glucose 143 mg/dL (74-106); Potassium 4.3 mmol/L (3.5-5.1); Sodium 135 mmol/L (136-145)
[2019-12-13] MEDS: PREGABALIN 150 MG CAP PO ×2 (07:40→20:23)
[2019-12-13] MEDS: hydrOXYzine PAMOATE 25 MG CAP PO ×2 (07:40→20:23)
[2019-12-13] MEDS: PARoxetine 20 MG TAB PO (07:40)
[2019-12-13] MEDS: busPIRone 15 MG TAB PO ×2 (07:40→20:23)
[2019-12-13] MEDS: predniSONE 20 MG TAB 40 MG PO ×2 (07:41→20:23)
[2019-12-13] MEDS: Topiramate 25 MG TAB 75 MG PO ×2 (07:41→20:22)
[2019-12-13 08:22] LABS: Procalcitonin 0.4 ng/mL
--- NOTE | 2019-12-13 08:53 | CMPROGNOTE_ITS ---
Care Management Progress Note S/O: Raquel remains pleasant in interaction and continues to make gains toward discharge. She is off oxygen this morning and reports feeling much better. She had a nebulizer treatment in the afternoon and was ambulating through the hallways afterward. Per MD and RT, a nebulizer will be provided to her upon discharge. CM continues to follow. A: 34 year old female admitted to [facility] 12/10/19 for Pneumonia P: Raquel will return home upon discharge. CM will continue to follow and support discharge planning considerations and review community based supports. Per MD and RT, a nebulizer will be provided to her upon discharge. Raquel will transport via private vehicle, either with friends or via [facility].
--- NOTE | 2019-12-13 11:21 | W.PM.PROGNOT ---
Date of Service Date of service: 12/13/19 Time of Service: 11:21 Assessment and Plan Assessment and plan (1) Bilateral pneumonia: Status: Acute Assessment and plan: Present on admission, likely bacterial in origin, as now we do have an elevated procalcitonin/CRP. Clinically much better today, and I suspect that these numbers were lagging behind on original check. Recheck CRP tomorrow. Continue empiric levofloxacin and current dose of steroids. Wean O2 as tolerated. Given h/o recurrent PNA, I wonder if ground glass opacities seen on CT could represent scarring. There may be utility in repeating CT 4-6 weeks from now to document resolution/persistence. Continue nebs - will need a nebulizer machine on d/c. COVID neg. Lab is looking into why RSV was not done; remainder of viral panel negative. Check ambulatory pulse ox. Planned for discharge home tomorrow. (2) Asthma: Status: Chronic Assessment and plan: In acute exacerbation. As above. Will need a neb machine on d/c. (3) History of opioid abuse: Status: Chronic Assessment and plan: Continue suboxone (4) Bipolar disease, chronic: Status: Chronic Assessment and plan: Continue outpatient therapy (5) COVID-19 ruled out by laboratory testing: Status: Acute Assessment and plan: PCR negative (6) DVT prophylaxis: Status: Acute Assessment and plan: Not indicated in an ambulatory 34 year old (7) Discharge planning issues: Status: Acute Assessment and plan: Full code Plan for discharge home tomorrow with a nebulizer machine. Will need ambulatory pulse ox testing in am. Would benefit from a referral to a traffic rate clerk on d/c. Subjective Subjective Interval history since last seen: Raquel feels overall better today. Still has mild nonproductive cough. She denies dizziness, chest pain/tightness, nausea. Her shortness of breath now primarily happens when she ambulates, and when she does get short of breath, she feels that the oxygen helps. She states that her ex-boyfriend saw his PCP and was diagnosed with COPD exacerbation. His respiratory symptom is productive cough. None of the 3 kids at home have any respiratory symptoms. Raquel endorses smoking, but denies inhaling or snorting any other substances. She says she has been in recovery for years. Exam Narrative Exam Narrative: General: Obese female who looks much better than yesterday, no dyspnea/tachypnea, and overall less sick HEENT: EOMI, MMM Heart: RRR, no m/r/g Lungs: CTAB Abdomen: soft, nondistended Extremities: no e/c/c BLE's Objective Objective Clinical Data: Abnormal lab results 12/12/19 12/13/19 12/13/19 Range/Units 11:31 06:55 06:55 Hgb (12.0-15.5) g/dL Hct (36.0-46.0) % Absolute Neutrophils (1.2-6.7) k/cumm Sodium 135 L (136-145) mmol/L Glucose 143 H (74-106) mg/dL C-Reactive Protein 11.09 H (0.0-0.3) mg/dL Urine Opiates Screen Positive A (Negative) 12/13/19 Range/Units 06:55 Hgb 11.6 L (12.0-15.5) g/dL Hct 34.5 L (36.0-46.0) % Absolute Neutrophils 8.58 H (1.2-6.7) k/cumm Sodium (136-145) mmol/L Glucose (74-106) mg/dL C-Reactive Protein (0.0-0.3) mg/dL Urine Opiates Screen (Negative) Vital Signs Temperature 37.2 C 12/13/19 08:05 Temperature Source Temporal Artery Scan 12/13/19 08:05 Pulse 92 H 12/13/19 08:05 Pulse Rhythm Regular 12/13/19 07:40 Pulse 97 H 12/11/19 07:15 Respiratory Rate 22 12/13/19 08:05 Respiratory Effort 12/13/19 07:40 Respiratory Depth Normal 12/13/19 07:40 Respiratory Pattern Normal 12/13/19 07:40 Blood Pressure 111/67 12/13/19 08:05 Blood Pressure Mean 74 12/11/19 00:31 Blood Pressure Position Sitting 12/10/19 21:50 Pulse Oximetry 95 12/13/19 08:25 Oxygen Delivery Method Room Air 12/13/19 08:25 Oxygen Flow Rate 0 12/13/19 08:25 Pain Level 3 12/13/19 08:05 Comment 12/12/19 05:15 Intake & Output 12/12/19 12/12/19 12/13/19 11:59 23:59 11:59 Intake Total 490 / 1090 600 / 1090 150 / 150 Output Total 850 / 2600 1750 / 2600 1000 / 1000 Balance -360 / -1510 -1150 / -1510 -850 / -850 Intake: IV 150 / 150 Oral 490 / 1090 600 / 1090 Output: Urine 850 / 2600 1750 / 2600 1000 / 1000 Other: Urine Color Dark Victorina Light Victorina Dark Victorina Urine Appearance Clear Clear Clear Urine Odor Normal None Voiding Methods Toilet Toilet Toilet Laboratory Results WBC 10.67 k/cumm (4.4-10.8) D 12/13/19 06:55 RBC 4.09 m/cumm (4.00-5.20) 12/13/19 06:55 Hgb 11.6 g/dL (12.0-15.5) L 12/13/19 06:55 Hct 34.5 % (36.0-46.0) L 12/13/19 06:55 MCV 84.4 fL (80-95) 12/13/19 06:55 MCH 28.4 pg (27.0-33.0) 12/13/19 06:55 MCHC 33.6 g/dL (32.0-36.0) 12/13/19 06:55 RDW 13.6 % (11.7-14.6) 12/13/19 06:55 Plt Count 304 x1000/uL (130-400) 12/13/19 06:55 MPV 9.8 fL (8.0-11.0) 12/13/19 06:55 Immature Gran % 0.2 % 12/13/19 06:55 Neutrophils % 80.4 12/13/19 06:55 Band Neutrophils % 6.0 % 12/10/19 21:55 Lymphocytes % 13.2 12/13/19 06:55 Monocytes % 6.2 12/13/19 06:55 Eosinophils % 0.0 12/13/19 06:55 Basophils % 0.0 12/13/19 06:55 Absolute Neutrophils 8.58 k/cumm (1.2-6.7) H 12/13/19 06:55 Absolute Lymphocytes 1.41 k/cumm (1.2-3.4) 12/13/19 06:55 Absolute Monocytes 0.66 k/cumm (0.11-0.7) 12/13/19 06:55 Absolute Eosinophils 0.00 k/cumm (0.0-0.7) 12/13/19 06:55 Absolute Basophils 0.00 k/cumm (0.0-0.2) 12/13/19 06:55 Differential Comment Manual differential 12/10/19 21:55 RBC Morphology Normal 12/10/19 21:55 D-Dimer 528 ng/mlFEU (<500) H 12/10/19 21:55 Sodium 135 mmol/L (136-145) L 12/13/19 06:55 Potassium 4.3 mmol/L (3.5-5.1) 12/13/19 06:55 Chloride 105 mmol/L (98-107) 12/13/19 06:55 Carbon Dioxide 23.1 mmol/L (21.0-32.0) 12/13/19 06:55 Anion Gap 6.9 mmol/L (3-11) 12/13/19 06:55 BUN 13 mg/dL (7-18) 12/13/19 06:55 Creatinine 0.80 mg/dL (0.55-1.02) 12/13/19 06:55 Estimated GFR/1.73 m2 >= 60.00 (mL/min/1.73m2) 12/13/19 06:55 Glucose 143 mg/dL (74-106) H 12/13/19 06:55 Lactate 0.9 mmol/L (0.6-1.4) 12/11/19 05:23 Calcium 9.1 mg/dL (8.5-10.1) 12/13/19 06:55 Magnesium 2.0 mg/dL (1.8-2.4) 12/13/19 06:55 Ferritin 74 ng/mL (8-252) 12/10/19 21:55 Total Bilirubin 0.4 mg/dL (0.2-1.0) 12/10/19 21:55 AST 30 U/L (15-37) 12/10/19 21:55 ALT 20 U/L (14-59) 12/10/19 21:55 Alkaline Phosphatase 59 U/L (46-116) 12/10/19 21:55 Lactate Dehydrogenase 332 U/L (81-234) H 12/10/19 21:55 Troponin I < 0.05 ng/Ml (<0.06) 12/10/19 21:55 C-Reactive Protein 11.09 mg/dL (0.0-0.3) H 12/13/19 06:55 Total Protein 7.9 g/dL (6.4-8.2) 12/10/19 21:55 Albumin 3.7 g/dL (3.4-5.0) 12/10/19 21:55 Procalcitonin 0.4 ng/mL 12/13/19 06:55 Urine Color Yellow (Yellow) 12/10/19 23:30 Urine Clarity Clear (Clear) 12/10/19 23:30 Urine pH 5.5 (5-8) 12/10/19 23:30 Ur Specific Serafina <= 1.005 (1.005-1.025) 12/10/19 23:30 Urine Protein Negative mg/dL (Negative) 12/10/19 23:30 Urine Ketones Negative mg/dL (Negative) 12/10/19 23:30 Urine Blood Negative (Negative) 12/10/19 23:30 Urine Nitrite Negative (Negative) 12/10/19 23:30 Urine Bilirubin Negative (Negative) 12/10/19 23:30 Urine Urobilinogen 0.2 EU/dL (Up TO 0.2) 12/10/19 23:30 Ur Leukocyte Esterase Negative (Negative) 12/10/19 23:30 Urine Glucose Negative mg/dL (Negative) 12/10/19 23:30 Urine Opiates Screen Positive (Negative) A 12/12/19 11:31 Urine Methadone Screen Negative (Negative) 12/12/19 11:31 Ur Barbiturates Screen Negative (Negative) 12/12/19 11:31 Ur Tricyclics Screen Negative (Negative) 12/12/19 11:31 Ur Amphetamines Screen Negative (Negative) 12/12/19 11:31 U Benzodiazepines Scrn Negative (Negative) 12/12/19 11:31 Urine Cocaine Screen Negative (Negative) 12/12/19 11:31 Ur THC Screen Negative (Negative) 12/12/19 11:31 Adenovirus DNA Negative (Negative) 12/11/19 16:30 COVID-19 PCR Negative (Negative) 12/10/19 21:45 Nasopharyn COVID-19 PCR Not Applicable 12/10/19 21:45 Human Metapneumovir RNA Negative (Negative) 12/11/19 16:30 Parainfluenza 1 (PCR) Negative (Negative) 12/11/19 16:30 Parainfluenza 2 (PCR) Negative (Negative) 12/11/19 16:30 Parainfluenza 3 (PCR) Negative (Negative) 12/11/19 16:30 Parainfluenza 4 (PCR) Negative (Negative) 12/11/19 16:30 Resp Viral Spec Desc Not Applicable 12/11/19 16:30 Rhinovirus (PCR) Negative (Negative) 12/11/19 16:30 Ref Test Perform Site [facility] hospital lab 12/10/19 21:45
[2019-12-13] MEDS: Buprenorphine/Naloxone 12 mg/3 mg FILM 1 EACH SL (12:02)
[2019-12-13] MEDS: Mylanta Suspension 30 ML CUP PO (12:05)
[2019-12-13] MEDS: lamoTRIgine 25 MG TAB 50 MG PO (20:30)
[2019-12-13] MEDS: Magnesium Oxide 400 MG TAB PO (20:31)
[2019-12-13] MEDS: Cholecalciferol (Vitamin D3) 400 UNIT TAB PO (20:31)
[2019-12-13] MEDS: Pantoprazole 40 MG TABCR PO (20:33)
[2019-12-13] MEDS: levoFLOXacin 750 MG/150 ML BAG 100 MG IVPB (21:57)
[2019-12-13] MEDS: Normal Saline Flush 10 ML SYR IVP (23:45)
[2019-12-14 05:00] VITALS: O2SAT 98
[2019-12-14 06:48] LABS: Lactate 1.1 mmol/L (0.6-1.4)
[2019-12-14 06:55] LABS: Abs Immature Grans 0.07 k/cumm (0.0-0.09); Basophils % 0.1; HCT 37.9 % (36.0-46.0); HGB 12.5 g/dL (12.0-15.5); Immature Grans % 0.4 %; Lymphocytes % 15.7; Mean Corpuscular Hemoglobin 28.2 pg (27.0-33.0); Mean Corpuscular Volume 85.4 fL (80-95); Mean Platelet Volume 9.9 fL (8.0-11.0); Monocytes % 4.6; Neutrophils % 79.2; Platelet Count 380 x1000/uL (130-400); RBC 4.44 m/cumm (4.00-5.20); RBC Distribution Width 14.1 % (11.7-14.6); White Blood Cell Count 16.42 k/cumm (4.4-10.8)
[2019-12-14 06:56] LABS: Absolute Basophil Count 0.02 k/cumm (0.0-0.2); Absolute Lymphocyte Count 2.58 k/cumm (1.2-3.4); Absolute Monocyte Count 0.76 k/cumm (0.11-0.7)
[2019-12-14 07:12] LABS: ALT 16 U/L (14-59); AST 11 U/L (15-37); Albumin 2.9 g/dL (3.4-5.0); Alkaline Phosphatase 47 U/L (46-116); Anion Gap 12.1 mmol/L (3-11); BUN 17 mg/dL (7-18); Bilirubin, Total 0.2 mg/dL (0.2-1.0); C-Reactive Protein 4.93 mg/dL (0.0-0.3); CO2 21.9 mmol/L (21.0-32.0); CREATININE 0.82 mg/dL (0.55-1.02); Calcium 9.3 mg/dL (8.5-10.1); Chloride 104 mmol/L (98-107); Glucose 144 mg/dL (74-106); Magnesium 1.9 mg/dL (1.8-2.4); Potassium 4.4 mmol/L (3.5-5.1); Sodium 138 mmol/L (136-145); Total Protein 7.7 g/dL (6.4-8.2)
[2019-12-14 07:20] LABS: D-Dimer 348 ng/mlFEU (<500)
[2019-12-14 07:23] LABS: Bilirubin, Direct < 0.05 mg/dL (0.00-0.20)
[2019-12-14 07:40] VITALS: BP 122/72; PULSE 93; RESP 18; TEMP 36.7; O2SAT 97
--- NOTE | 2019-12-14 07:46 | W.PM.DS.N ---
Date of service: 12/14/19 Time of Service: 07:46 DS: Diagnosis Discharge Diagnosis (1) Sepsis: Status: Resolved (2) Bilateral pneumonia: Status: Acute (3) Asthma: Status: Chronic (4) History of opioid abuse: Status: Chronic (5) Bipolar disease, chronic: Status: Chronic (6) COVID-19 ruled out by laboratory testing: Status: Acute Discharge Plan Disposition Patient Disposition: HOME Condition: Stable Discharge Details Chief Complaint: RespSymp Clinical Impression: Ground glass opacity present on imaging of lung, Shortness of breath Reason For Visit: PNEUMONIA Admit Date/Time: 12/10/19 23:14 Admit Provider: Balaji Levy Attending Provider: Balaji Levy Primary Care Provider: Yudelka Cano ED Provider: Dawna Willis Hospital Course Hospital Course: Ms Edwards is a 34 year old female with PMHx of asthma, ongoing tobacco abuse, GERD, opioid dependence on suboxone therapy through [facility], who was admitted to [facility] hospitalist service on 12/10/2019 with sepsis due to CAP and acute asthma exacerbation. She had presence of ground glass opacities on her CT of the chest, but ruled out for COVID-19/other viral pathogens, also denying any snorting/inhaling of any substances other than tobacco. Aspiration pneumonitis is a possibility, given her GERD. The patient improved markedly with IV levofloxacin, systemic steroids, nebulizer treatments. While she was mildly hypoxic on admission, her hypoxia has completely resolved by discharge. She has completed 4/7 days of levofloxacin and is getting sent home today with rx to complete a week long course, a burst of steroids, nebulizer treatments and a nebulizer machine, which the patient does not have. She is medically cleared for discharge home today. Her exercise oximetry was 96% on room air. Care for patient as well as completion of her discharge summary took 45 minutes on day of discharge. Home Meds and New Rx's Prescriptions: New albuterol sulfate 2.5 mg /3 mL (0.083 %) Solution For Nebulization 2.5 mg UPD Q2H PRN PRNQty: 180 RF: 0 prednisone 20 mg Tablet See Rx Instructions .ROUTE .COMPLEX Qty: 6 RF: 0 nicotine 21 mg/24 hr Patch 24 Hour 21 mg transdermal DAILY PRN PRNQty: 0 RF: 0 levofloxacin 750 mg tablet 750 mg PO HS Qty: 3 RF: 0 Continued acetaminophen [Pain Relief] 500 MG tablet 2 tab PO PRN PRNRF: 0 Lupron Depot (3 month) 11.25 mg Syringe Kit 11.2 mg IM Q12W RF: 0 pantoprazole 40 MG tablet,delayed release (DR/EC) 40 mg PO DAILY RF: 0 buprenorphine-naloxone [Suboxone] 1 EACH film 12 mg PO DAILY RF: 0 buspirone 15 mg Tablet 15 mg PO BID RF: 0 riboflavin (vitamin B2) [Vitamin B-2] 100 mg tablet 4,000 mg PO DAILY RF: 0 promethazine 12.5 mg tablet 12.5 mg PO Q12H PRN PRNRF: 0 topiramate 25 mg Tablet 75 mg PO BID RF: 0 lamotrigine 25 mg Tablet 50 mg PO DAILY RF: 0 paroxetine HCl 20 mg tablet 20 mg PO DAILY RF: 0 albuterol sulfate [ProAir HFA] 90 mcg/actuation Hfa Aerosol Inhaler 2 - 4 puff INHALATION Q4H PRN PRNRF: 0 Flovent HFA 110 mcg/actuation Hfa Aerosol Inhaler 2 puff INHALATION BID RF: 0 hydroxyzine pamoate 25 mg capsule 25 mg PO BID RF: 0 pregabalin 150 mg capsule 150 mg PO BID RF: 0 magnesium oxide 400 mg (241.3 mg magnesium) tablet 400 mg PO DAILY RF: 0 Discharge Instructions Instructions: Levofloxacin (By mouth), How to Stop Smoking (DC), Bacterial Pneumonia (DC) Additional Instructions: You must stop smoking. Finish your levofloxacin and prednisone as prescribed. Return to the hospital with any fever, bleeding, chest pain, or shortness of breath. Wear a mask whenever in contact with other people in society to prevent yourself from getting COVID-19. Follow up with your PCP within 1 week of discharge. Stand Alone Forms: Nursing Discharge Form Referrals: Yudelka Cano [Primary Care Provider] - Activity:: Activity as Tolerated Equipment/Supplies:: nebulizer machine Diet:: Normal Diet Discharge Orders Discharge Orders: Discharge Order (Routine); Ordered 12/14/19 Ordered By: Mary Green DS: Summary Status at Discharge Functional status at discharge: independent ambulation Overall status at discharge: patient is progressing back to baseline Mental Status: mental status grossly normal Speech and Movement: speech and movement normal Mood: congruent mood Affect: normal affect Exam Narrative Exam Narrative: General: Obese female, looks even better than yesterday, no dyspnea/tachypnea HEENT: EOMI, MMM Heart: RRR, no m/r/g Lungs: CTAB Abdomen: soft, nondistended Extremities: no e/c/c BLE's Psych Mental Status: mental status grossly normal Speech and Movement: speech and movement normal Mood: congruent mood Affect: normal affect DS: Data Vitals/I&O Vitals and I&O: Vital Signs Temperature 36.6 C 12/13/19 22:39 Temperature Source Tympanic 12/13/19 22:39 Pulse 95 H 12/13/19 22:39 Pulse Rhythm Regular 12/14/19 02:30 Pulse 97 H 12/11/19 07:15 Respiratory Rate 19 12/13/19 22:39 Respiratory Effort 12/14/19 02:30 Respiratory Depth Normal 12/14/19 02:30 Respiratory Pattern Normal 12/14/19 02:30 Blood Pressure 115/76 12/13/19 22:39 Blood Pressure Mean 74 12/11/19 00:31 Blood Pressure Position Sitting 12/10/19 21:50 Pulse Oximetry 98 12/14/19 05:00 Oxygen Delivery Method Room Air 12/14/19 05:00 Oxygen Flow Rate 0 12/14/19 05:00 Pain Level 3 12/13/19 08:05 Comment 12/12/19 05:15 Intake & Output 12/13/19 12/13/19 12/14/19 11:59 23:59 11:59 Intake Total 150 / 510 360 / 510 Output Total 1000 / 2300 1300 / 2300 Balance -850 / -1790 -940 / -1790 Weight 107.1 kg Intake: IV 150 / 310 160 / 310 Oral 200 / 200 Output: Urine 1000 / 2300 1300 / 2300 Other: Urine Color Dark Victorina Dark Victorina Urine Appearance Clear Clear Clear Urine Odor None None Voiding Methods Toilet Toilet Data Completed and Pending Completed studies during hospitalization [Text1]: CT chest w/o contrast: Diffuse bilateral ground-glass opacities could be secondary to viral pneumonia, including COVID-19 or influenza. Inhalational injury and drug toxicity or other possibilities. No evidence of pulmonary embolism. Labs on day of discharge: Labs from last 24 hours 04/12/14/19 12/14/19 06:35 06:35 06:35 WBC 16.42 H D RBC 4.44 Hgb 12.5 Hct 37.9 MCV 85.4 MCH 28.2 MCHC 33.0 RDW 14.1 Plt Count 380 MPV 9.9 Immature Gran % 0.4 Neutrophils % 79.2 Lymphocytes % 15.7 Monocytes % 4.6 Eosinophils % 0.0 Basophils % 0.1 Absolute Neutrophils 13.00 H Absolute Lymphocytes 2.58 Absolute Monocytes 0.76 H Absolute Eosinophils 0.00 Absolute Basophils 0.02 D-Dimer 348 Sodium Potassium Chloride Carbon Dioxide Anion Gap BUN Creatinine Estimated GFR/1.73 m2 Glucose Lactate 1.1 Calcium Magnesium Ferritin Total Bilirubin Conjugated Bilirubin AST ALT Alkaline Phosphatase C-Reactive Protein Total Protein Albumin Procalcitonin 12/14/19 12/13/19 06:35 06:55 WBC RBC Hgb Hct MCV MCH MCHC RDW Plt Count MPV Immature Gran % Neutrophils % Lymphocytes % Monocytes % Eosinophils % Basophils % Absolute Neutrophils Absolute Lymphocytes Absolute Monocytes Absolute Eosinophils Absolute Basophils D-Dimer Sodium 138 Potassium 4.4 Chloride 104 Carbon Dioxide 21.9 Anion Gap 12.1 H BUN 17 Creatinine 0.82 Estimated GFR/1.73 m2 >= 60.00 Glucose 144 H Lactate Calcium 9.3 Magnesium 1.9 Ferritin Pending Total Bilirubin 0.2 Conjugated Bilirubin < 0.05 AST 11 L ALT 16 Alkaline Phosphatase 47 C-Reactive Protein 4.93 H Total Protein 7.7 Albumin 2.9 L Procalcitonin 0.4 Preliminary micro results at discharge 12/10/19 22:05 Blood Culture - Preliminary Blood NO GROWTH 72 HOURS 12/10/19 21:55 Blood Culture - Preliminary Blood NO GROWTH 72 HOURS [facility] Medical History Asthma (Chronic) Bipolar disease, chronic (Chronic) Patient has been hospitalized for suicidal ideation the past currently not taking any medications. Is on disability for mental health issues Chronic pelvic pain in female (Acute) [place] [facility] [place]. Gabapentin 300 mg 3 times a day as needed GERD (gastroesophageal reflux disease) (Chronic) Headache (Acute) Imitrex as needed Hearing loss (Acute) Right side conduction loss cholecystectomy treated with titanium insert History of opioid abuse (Chronic) Take Suboxone 12 mg SL daily x3yrs. Weekly dosing given at [facility] in [place] PTSD (post-traumatic stress disorder) (Acute) Currently not in counseling Right knee pain (Acute) Awaiting ACL reconstruction Tobacco use (Acute) Has used Chantix off-and-on. Surgical History H/O right knee surgery (Acute) H/O total vaginal hysterectomy (Acute[place] [facility] [place] for menorrhagia and dysmenorrhea. Ovaries conserved. Diagnosis adenomyosis History of cholecystectomy (Chronic) History of laparoscopy (Chronic) 2013. 6 cm right ovarian cyst drained History of tubal ligation (Chronic) [facility] Hx of tonsillectomy (Chronic) Social History (Updated 12/11/19 @ 07:34 by Balaji Levy) Smoking/Tobacco Use Status: Current every day Tobacco Type: cigarettes Quit status: considering quitting Counseling given: provider counseling and other Details: Taking Chantix in order to quit Alcohol Intake: never Drug use: Current Sobriety Substance use type: former substance user Date of last use: 3 years. Suboxone 12 mg daily no relapses Household members: other Details: Has roommate. Boyfriend is named Brian. All 4 children adopted out. Number of Children: 4 current occupation: Unemployed. Receives disability for mental health issues Do you feel safe at home: Yes Do you feel safe in your relationship?: Yes Additional Social history: Lives in [place], household includes boyfriend and other roommates including a baby nephew
[2019-12-14 07:58] LABS: Ferritin 89 ng/mL (8-252)
[2019-12-14 08:05] VITALS: PULSE 121; PULSE 78; PULSE 81; RESP 20; RESP 28; O2SAT 96; O2SAT 99
[2019-12-14] MEDS: predniSONE 20 MG TAB 40 MG PO (08:48)
[2019-12-14] MEDS: busPIRone 15 MG TAB PO (08:49)
[2019-12-14] MEDS: PREGABALIN 150 MG CAP PO (08:49)
[2019-12-14] MEDS: Topiramate 25 MG TAB 75 MG PO (08:49)
--- NOTE | 2019-12-14 10:21 | PDOC.CMDIS ---
- If Service Date Differs Date of service: 12/14/19 Time of Service: 10:21 LACE Index Scoring Tool - Questions: Length of Stay (in days): 4 - 6 Acuity (Admit via E.D.?): Yes E.D. Visits: 8 - Answers: Total Score: 11 Risk of Readmission: High Risk Care Management Discharge Reason for Hospitalization: Pneumonia Discharge Plan: Raquel will return home with no additional services at this time. She will resume suboxone therapy with [facility]. CM provided a last dose letter prior to discharge. She will continue her 7 day abx course at home. RT coordinated a nebulizer machine for home use. She will be driven home via private vehicle by friends. She will follow up with her PCP and discharge plan of care. Patient/Family Education Needs: Review discharge instructions regarding activity levels and medications, discussion of self care needs including ask me three.
== END 2019-12-14 09:43 | disposition home or self-care (01) | DRG 871 ==
LOC: ER 23:21 → RCU 12-11 00:41 → MS 12-13 18:02 → RCU 12-15 11:10
PROVIDERS: Internal Medicine; Admitting Provider Family Medicine; Emergency Provider Physician Assistant; PCP Nurse Practitioner Family; Visit Provider Internal Medicine
DX: A41.9 Sepsis, unspecified organism (principal); J12.9 Viral pneumonia, unspecified; F11.20 Opioid dependence, uncomplicated; J45.901 Unspecified asthma with (acute) exacerbation; E87.1 Hypo-osmolality and hyponatremia; R07.89 Other chest pain; F17.210 Nicotine dependence, cigarettes, uncomplicated; R09.02 Hypoxemia; E86.1 Hypovolemia; Z87.01 Personal history of pneumonia (recurrent); G89.29 Other chronic pain; R10.2 Pelvic and perineal pain; K21.9 Gastro-esophageal reflux disease without esophagitis; Z91.040 Latex allergy status; F31.9 Bipolar disorder, unspecified; D72.829 Elevated white blood cell count, unspecified
CPT/HCPCS: 36415; 71275; 80048; 80053; 80076; 80307; 84145; 85027; 87040; 87449; 87632; 94618; 94640; 96361; 96365; 96375; 99222; 99232; 99239; 99285; J3490; U0003; 81003; 82728; 83605; 83615; 83735; 84484; 85025; 85379; 86140; 93005; 93010; 99284; J0131; J1644; J1956; J2060; J7512; J7620

== ENCOUNTER 2020-03-30 17:27 | Emergency (ER) | payer MEDICAID, SELFPAY ==
[2020-03-30 17:30] VITALS: BP 140/87; PULSE 115; RESP 16; TEMP 36.6; O2SAT 97
--- NOTE | 2020-03-30 17:34 | W.ED.GENAD ---
Discharge Plan Disposition Patient Disposition: HOME Condition: Stable Discharge Details Chief Complaint: Urinary Clinical Impression: Flank pain, Urinary frequency Primary Care Provider: Yudelka Cano ED Provider: Emperatriz Mcnamara Home Meds and New Rx's Prescriptions: New prochlorperazine maleate [Compazine] 10 mg tablet 10 mg PO TID PRN (Reason: nausea and vomiting) Qty: 7 RF: 0 Continued acetaminophen [Pain Relief (acetaminophen)] 500 MG tablet 2 tab PO PRN PRNRF: 0 pantoprazole 40 MG tablet,delayed release (DR/EC) 40 mg PO DAILY RF: 0 buprenorphine-naloxone [Suboxone] 1 EACH film 12 mg PO DAILY RF: 0 buspirone 15 mg Tablet 20 - 30 mg PO BID RF: 0 riboflavin (vitamin B2) [Vitamin B-2] 100 mg tablet 4,000 mg PO DAILY RF: 0 promethazine 12.5 mg tablet 12.5 mg PO Q12H PRN PRNRF: 0 lamotrigine 25 mg Tablet 100 mg PO DAILY RF: 0 paroxetine HCl 20 mg tablet 40 mg PO DAILY RF: 0 albuterol sulfate [ProAir HFA] 90 mcg/actuation Hfa Aerosol Inhaler 2 - 4 puff INHALATION Q4H PRN PRNRF: 0 Flovent HFA 110 mcg/actuation Hfa Aerosol Inhaler 2 puff INHALATION BID RF: 0 hydroxyzine pamoate 25 mg capsule 25 mg PO BID RF: 0 pregabalin 150 mg capsule 225 mg PO BID RF: 0 magnesium oxide 400 mg (241.3 mg magnesium) tablet 400 mg PO DAILY RF: 0 albuterol sulfate 2.5 mg /3 mL (0.083 %) Solution For Nebulization 2.5 mg UPD Q2H PRN PRNQty: 180 RF: 0 Discharge Instructions Instructions: Flank Pain (ED) Additional Instructions: Drink plenty of fluids and get plenty of rest. Take Tylenol as needed and directed for pain. Take the Compazine as needed and directed for nausea and vomiting. Call the urology office tomorrow morning to schedule a follow-up appointment for reevaluation. It appears you do not have a urinary tract infection, kidney infection or kidney stone, etc. to account for your symptoms. It is possible that your symptoms are due to interstitial cystitis which is an inflammation of your bladder not related to infection which can cause urinary frequency, abdominal and flank pain. It is best to be evaluated by a urologist for further discussion and evaluation for this. Return immediately to the emergency department if you develop any worsening or new concerning symptoms. Referrals: Luis Fernando Ellison MD [ [facility]IAN] - Discharge Data Discharge Date/Time-TO BE ENTERED AT DEPARTURE: 03/30/20 20:15 Discharge Physician: Emperatriz Mcnamara Medical Decision Making 1821 -- 34-year-old female with a history of bipolar disorder, GERD, kidney stones, hysterectomy and recent bilateral oophorectomy last month presents with lower abdominal pain that is worse with urination with radiation to the right flank and nausea for the past 4 days. She has suprapubic and right lower quadrant tenderness. No CVA tenderness. Heart rate tachycardic but she appears nontoxic. Differential diagnosis includes UTI, pyelonephritis, kidney stone, appendicitis, postsurgical seroma or other complication. Will place an IV, bolus IV fluids, screening labs, urinalysis and CT abdomen pelvis and give a dose of IV Tylenol and Zofran and reassess. 1999 --labs and imaging reviewed. White blood cell count 15, she has had leukocytosis noted in the past. No other acute findings on labs. Urinalysis negative. CT notes a resolving small hematoma at site of left oophorectomy, questionable enteritis but no other acute significant findings. She is complaining of some nausea and offered Compazine but she is driving home. She feels good to go home. Compazine given to go. She declines any additional pain medication as she is on Suboxone and has adverse reaction to Toradol and tramadol. Discussed with patient that her urinary frequency, right flank pain and abdominal pain could possibly be due to interstitial cystitis. Discussed that I do not see any acute cause for her symptoms at this time and recommend that she follow-up with urology for further evaluation. Patient placed on urology follow-up list. Usual and customary return precautions given prior to discharge. Medical Records Medical records reviewed: Yes I reviewed the patient's medical records. Imaging Data Radiologic Study: Radiologist's impression: Addendum created by George Leach MD on 03/30/2020 8:01:43 PM EDT Consultation was performed with the referring physician, Dr. Mcnamara. Patient has had both ovaries taken out approximately 3 weeks ago. The left adnexal change is likely a resolving small hematoma based on this additional history. This could be evaluated for further resolution with a pelvic ultrasound in approximately 6 weeks. Initial report created on 03/30/2020 7:29:[address] Abdomen And Pelvis With Contrast Exam date and time: 03/30/2020 7:02 PM Age: 34 years old Clinical indication: Localized; Right lower quadrant (rlq); Prior surgery; Surgery date: <1 month; Surgery type: Oophorectomy March 04 2020. Right sided lower abdominal pain TECHNIQUE: Imaging protocol: Computed tomography of the abdomen and pelvis with intravenous contrast. Radiation optimization: All CT scans at this facility use at least one of these dose optimization techniques: automated exposure control; mA and/or kV adjustment per patient size (includes targeted exams where dose is matched to clinical indication); or iterative reconstruction. Contrast material: OMNIPAQUE 350; Contrast volume: 100 ml; Contrast route: INTRAVENOUS (IV); COMPARISON: CT ABDOMEN PELVIS W 06/06/2019 9:49 PM FINDINGS: Liver: Normal. No mass. Gallbladder and bile ducts: Previous cholecystectomy. No biliary dilatation. Pancreas: Normal. No ductal dilation. Spleen: Normal. No splenomegaly. Adrenals: Normal. No mass. Kidneys and ureters: No renal calculi or hydronephrosis. No renal inflammatory changes. Subcentimeter left renal cyst. Stomach and bowel: Left abdominal small bowel loops with mild dilatation and fluid retention. This may represent a mild enteritis. No mechanical obstruction of small bowel. Large bowel loops are unremarkable. Gastric morphology is unremarkable. Appendix: A normal appendix is visible. See series 4, images 61 through 68. Intraperitoneal space: See Reproductive finding. Vasculature: Unremarkable. No abdominal aortic aneurysm. Lymph nodes: Unremarkable. No enlarged lymph nodes. Bladder: Urinary bladder is under distended and grossly normal. Reproductive: Complex left ovarian cyst measuring 3.1 by 3 cm with some septations. There is a small amount of left Supriya adnexal free fluid and inflammation. Recommend clinical correlation. Previous hysterectomy. Right ovary not visible. Bones/joints: Unremarkable. No acute fracture. Soft tissues: Unremarkable. IMPRESSION: 1. Normal appendix visible. 2. No renal calculi or renal inflammatory changes. No hydronephrosis. Subcentimeter left renal cyst. 3. Complex left adnexal cyst measuring 3.1 x 3 cm with septation. Minor surrounding inflammation and minimal adnexal fluid. Pelvic ultrasound may be warranted for further evaluation. 4. Previous hysterectomy. Right ovary not visible. 5. Mild small bowel enteritis pattern suggested. This is nonspecific. Dictated and Authenticated by: George Leach MD. Lab Data Lab results reviewed: Yes I reviewed the patient's lab results. Labs: Laboratory Tests Range/Units 03/30/20 03/30/20 03/30/20 17:30 18:20 18:20 WBC (4.4-10.8) 10^3/uL 15.00 H RBC (3.93-5.22) 10^6/uL 4.71 Hgb (11.2-15.7) g/dL 12.7 Hct (36.0-46.0) % 39.6 MCV (80-95) fL 84.1 MCH (27.0-33.0) pg 27.0 MCHC (32.0-36.0) % 32.1 RDW (11.7-14.6) % 13.4 Plt Count (130-400) 10^3/uL 327 MPV (8.0-11.0) fL 9.6 Immature Gran % See Differential Neutrophils % 60.0 Lymphocytes % 32.0 Monocytes % 4.0 Eosinophils % 4.0 Basophils % 0.0 Absolute Neutrophils (1.2-6.7) 10^3/uL 9.00 H Absolute Lymphocytes (1.2-3.4) 10^3/uL 4.80 H Absolute Monocytes (0.1-0.8) 10^3/uL 0.60 Absolute Eosinophils (0.0-0.7) 10^3/uL 0.60 Absolute Basophils (0.0-0.2) 10^3/uL 0.00 RBC Morphology Normal Sodium (136-145) mmol/L 138 Potassium (3.5-5.1) mmol/L 3.7 Chloride (98-107) mmol/L 103 Carbon Dioxide (21.0-32.0) mmol/L 28.9 Anion Gap (3-11) mmol/L 6.1 BUN (7-18) mg/dL 8 Creatinine (0.55-1.02) mg/dL 0.78 Estimated GFR/1.73 m2 (mL/min/1.73m2) >= 60.00 Glucose (74-106) mg/dL 87 Calcium (8.5-10.1) mg/dL 8.5 Total Bilirubin (0.2-1.0) mg/dL 0.2 AST (15-37) U/L 9 L ALT (14-59) U/L 16 Alkaline Phosphatase (46-116) U/L 56 Total Protein (6.4-8.2) g/dL 6.9 Albumin (3.4-5.0) g/dL 3.3 L Urine Color (Yellow) Yellow Urine Clarity (Clear) Clear Urine pH (5-8) 7.0 Ur Specific [place] (1.005-1.025) 1.020 Urine Protein (Negative) mg/dL Negative Urine Ketones (Negative) mg/dL Negative Urine Blood (Negative) Negative Urine Nitrite (Negative) Negative Urine Bilirubin (Negative) Negative Urine Urobilinogen (Up TO 0.2) EU/dL 0.2 Ur Leukocyte Esterase (Negative) Negative Urine Glucose (Negative) mg/dL Negative HPI General Mode of arrival: ambulatory. Date/Time Provider Initiated Documentation: 03/30/20 17:34. Limitations to Documentation: no limitations. Information obtained by: patient. HPI Narrative: Patient is a 34-year-old female with a history of bipolar, GERD, hysterectomy and recent bilateral oophorectomy last month due to chronic ovarian pain presents for urinary frequency, worsening lower abdominal pain that occurs with urination and radiates to the right flank and nausea for the past 4 days. She denies any fever, vomiting, diarrhea, dysuria, hematuria. She admits to a history of kidney stone and states this may seem similar. She last took tylenol a few hours ago and motrin a couple hours ago. Related Data Home Medications Medication Instructions Recorded Confirmed acetaminophen [Pain Relief 2 tab PO PRN PRN 09/25/14 03/30/20 (acetaminophen)] buprenorphine-naloxone [Suboxone] 12 mg PO DAILY 10/21/17 03/30/20 pantoprazole 40 mg PO DAILY 10/21/17 03/30/20 buspirone 20 - 30 mg PO BID 10/06/19 03/30/20 Flovent HFA 2 puff INHALATION BID 12/10/19 03/30/20 albuterol sulfate [ProAir HFA] 2 - 4 puff INHALATION Q4H PRN PRN 12/10/19 03/30/20 hydroxyzine pamoate 25 mg PO BID 12/10/19 03/30/20 lamotrigine 100 mg PO DAILY 12/10/19 03/30/20 paroxetine HCl 40 mg PO DAILY 12/10/19 03/30/20 pregabalin 225 mg PO BID 12/10/19 03/30/20 promethazine 12.5 mg PO Q12H PRN PRN 12/10/19 03/30/20 riboflavin (vitamin B2) [Vitamin 4,000 mg PO DAILY 12/10/19 03/30/20 B-2] magnesium oxide 400 mg PO DAILY 12/11/19 03/30/20 albuterol sulfate 2.5 mg UPD Q2H PRN PRN #180 ml 12/14/19 03/30/20 prochlorperazine maleate 10 mg PO TID PRN #7 tab 03/30/20 [Compazine] Previous Rx's Medication Instructions Recorded albuterol sulfate 2.5 mg UPD Q2H PRN PRN #180 ml 12/14/19 prochlorperazine maleate 10 mg PO TID PRN #7 tab 03/30/20 [Compazine] Allergies Allergy/AdvReac Type Severity Reaction Status Date / Time doxycycline Allergy Swelling/Ed Unverified 03/30/20 17:38 brynn Penicillins Allergy Anaphylaxsi Unverified 03/30/20 17:38 s azithromycin AdvReac Nausea Unverified 03/30/20 17:38 calcium carbonate [From DHEA] AdvReac Swelling/Ed Unverified 03/30/20 17:38 brynn calcium phosphate,dibasic AdvReac Swelling/Ed Unverified 03/30/20 17:38 [From DHEA] brynn ketorolac AdvReac Nausea Unverified 03/30/20 17:38 latex AdvReac Skin Rash Unverified 03/30/20 17:38 nitrofurantoin AdvReac muscles Unverified 03/30/20 17:38 [From Macrobid] stiffen up all over body nitrofurantoin AdvReac muscles Unverified 03/30/20 17:38 macrocrystalline stiffen up [From Macrobid] all over body prasterone (DHEA) [From DHEA] AdvReac Swelling/Ed Unverified 03/30/20 17:38 brynn silver AdvReac Skin Rash Unverified 03/30/20 17:38 [From Tegaderm AG Mesh] tramadol AdvReac Urinary Unverified 03/30/20 17:38 retention General JAN: 2 Review of Systems All systems reviewed & are unremarkable except as noted in HPI and below Constitutional Constitutional: Reports as per HPI, Denies chills and Denies fever(s) Eyes Eyes: Denies blurry vision ENT Ears, Nose, Mouth, and Throat: Denies dizziness, Denies sore throat and Denies throat swelling Cardiovascular Cardiovascular: Denies chest pain and Denies dyspnea Respiratory Respiratory: Denies cough and Denies dyspnea Gastrointestinal Gastrointestinal: Reports abdominal pain, Denies diarrhea, Reports nausea and Denies vomiting Genitourinary Genitourinary: Denies hematuria, Denies dysuria and Reports flank pain (R flank pain) Musculoskeletal Musculoskeletal: Denies back pain and Denies numbness Integumentary/Breasts Skin/Breast: Denies lesions and Denies rash Neurologic Neurologic: Denies dizziness, Denies localized weakness and Denies numbness Allergic/Immunologic Allergic/Immunologic: Denies throat swelling [facility] Medical History Asthma (Chronic) Bipolar disease, chronic (Chronic) Patient has been hospitalized for suicidal ideation the past currently not taking any medications. Is on disability for mental health issues Chronic pelvic pain in female (Acute) S/P TVH at [facility] 2015. Gabapentin 300 mg 3 times a day as needed GERD (gastroesophageal reflux disease) (Chronic) Headache (Acute) Imitrex as needed Hearing loss (Acute) Right side conduction loss cholecystectomy treated with titanium insert History of opioid abuse (Chronic) Take Suboxone 12 mg SL daily x3yrs. Weekly dosing given at [facility] in [place] PTSD (post-traumatic stress disorder) (Acute) Currently not in counseling Right knee pain (Acute) Awaiting ACL reconstruction Tobacco use (Acute) Has used Chantix off-and-on. Surgical History H/O right knee surgery (Acute) H/O total vaginal hysterectomy (Acute) [facility] 2015 for menorrhagia and dysmenorrhea. Ovaries conserved. Diagnosis adenomyosis History of cholecystectomy (Chronic) History of laparoscopy (Chronic) 2013. 6 cm right ovarian cyst drained History of tubal ligation (Chronic) [facility] Hx of tonsillectomy (Chronic) Social History (Updated 12/11/19 @ 07:34 by Balaji Levy) Smoking/Tobacco Use Status: Current every day Tobacco Type: cigarettes Quit status: considering quitting Counseling given: provider counseling and other Details: Taking Chantix in order to quit Alcohol Intake: never Drug use: Current Sobriety Substance use type: former substance user Date of last use: 3 years. Suboxone 12 mg daily no relapses Household members: other Details: Has roommate. Boyfriend is named Brian. All 4 children adopted out. Number of Children: 4 current occupation: Unemployed. Receives disability for mental health issues Do you feel safe at home: Yes Do you feel safe in your relationship?: Yes Additional Social history: Lives in [place], household includes boyfriend and other roommates including a baby nephew Exam Const General: cooperative and no acute distress Orientation: alert, awake and oriented x3 HENMT Head: normal to inspection Face and sinus: normal facial exam Eyes General: appearance normal, both eyes and all related structures EOM: EOM intact bilaterally Neck Neck: normal visual inspection and No submandibular swelling Lymphatic: no lymphadenopathy noted Chest Chest: normal inspection of the chest and no tenderness Resp Effort & Inspection: normal respiratory effort and able to speak in complete sentences Auscultation: clear to auscultation bilaterally Cardio Rate: regular rate Rhythm: regular rhythm GI Inspection: normal to inspection Palpation: soft, not firm, not rigid and tender in the RLQ and suprapubicly Auscultation: hypoactive bowel sounds Back/Spine/Pelvis Back: no CVA tenderness Thoracic/Lumbar Spine: thoracic and lumbar spine normal to inspection Pelvis: no pain with anterior-posterior compression Skin General skin exam: no rashes or lesions noted Neuro General: patient alert, patient awake and patient oriented x3 Cognition: normal cognition Speech: speech normal Motor: muscle tone normal throughout Sensory Exam: no sensory deficits noted Extrem General: normal to inspection, full ROM, capillary refill normal, no calf tenderness bilaterally and no edema Psych Appearance: grossly normal Mental Status: mental status grossly normal Speech and Movement: speech and movement normal Affect: normal affect
[2020-03-30 17:43] LABS: Bilirubin Negative (Negative); Blood Negative (Negative); Clarity Clear (Clear); Glucose Negative (Negative); Ketones Negative (Negative); Leukocyte Esterase Negative (Negative); Nitrite Negative (Negative); Urobilinogen 0.2 EU/dL (Up TO 0.2)
[2020-03-30 18:23] LABS: HCT 39.6 % (36.0-46.0); HGB 12.7 g/dL (11.2-15.7); MCHC 32.1 % (32.0-36.0); MCV 84.1 fL (80-95); MPV 9.6 fL (8.0-11.0); Nucleated RBC 0 %; Platelet Count 327 10^3/uL (130-400); RBC 4.71 10^6/uL (3.93-5.22); RDW 13.4 % (11.7-14.6); RDW-SD 41.4 fL
[2020-03-30 18:38] LABS: ALT 16 U/L (14-59); AST 9 U/L (15-37); Albumin 3.3 g/dL (3.4-5.0); Alkaline Phosphatase 56 U/L (46-116); Anion Gap 6.1 mmol/L (3-11); BUN 8 mg/dL (7-18); Bilirubin, Total 0.2 mg/dL (0.2-1.0); CO2 28.9 mmol/L (21.0-32.0); CREATININE 0.78 mg/dL (0.55-1.02); Calcium 8.5 mg/dL (8.5-10.1); Chloride 103 mmol/L (98-107); Glucose 87 mg/dL (74-106); Potassium 3.7 mmol/L (3.5-5.1); Sodium 138 mmol/L (136-145); Total Protein 6.9 g/dL (6.4-8.2)
[2020-03-30] MEDS: Normal Saline 1,000 ML 1000 ML IV (18:44)
[2020-03-30 18:45] LABS: Diff Comment Manual Differential; RBC Morphology Normal
[2020-03-30] MEDS: Ondansetron 4 MG/2 ML VIAL IVP (18:45)
[2020-03-30] MEDS: Omnipaque 350 MG/ML 100 ML BTL IJ (19:06)
[2020-03-30] MEDS: Normal Saline - Diluent 50 ML VIAL IV (19:08)
[2020-03-30] MEDS: ACETAMINOPHEN 1,000 MG/100 ML BTL 400 MG IVPB (19:10)
--- NOTE | 2020-03-30 19:10 | DI.CT_ITS ---
EXAM: CT ABDOMEN PELVIS W CLINICAL HISTORY: R flank pain/UTI sx, r/o stone vs pyelo vs mass TECHNIQUE: Imaging Protocol: Axial computed tomography images with coronal and sagittal reformatted images were created and reviewed CONTRAST MATERIAL: Intravenous: Omnipaque 350 Contrast volume:100 mL. Oral: No COMPARISON: CT CT ABDOMEN PELVIS W from 06/06/[address] CHEST PE CTA from 12/10/2019 FINDINGS: ABDOMEN: Lung Bases: Normal where visualized. Liver: Normal density. No measurable mass. Portal, Superior Mesenteric, and Splenic Veins: Unremarkable. Gallbladder and Biliary Tract: Status post cholecystectomy. No biliary ductal dilatation. Pancreas: Normal density, no abnormal calcifications or inflammatory process. Spleen: Normal. Adrenals: No masses seen. Kidneys: Normal size, contour and axis. No radiodense stones or obstructive uropathy. Simple left mohini al cyst. Abdominal Aorta: Abdominal portion non-dilated. Minimal atherosclerosis. Bowel: No obstruction or bowel wall thickening. Appendix is unremarkable. Peritoneal Cavity: No ascites, collection or mesenteric inflammatory response. Lymph Nodes: Within normal limits. Bones: Minimal degenerative changes. Soft Tissues: Unremarkable. PELVIS: Bladder: Unremarkable decompressed urinary bladder. Reproductive Organs: Status post hysterectomy and bilateral oophorectomy by report. There is a multi septated 3.1 x 3 cm cystic lesion in the left adnexa. Surrounding inflammation and a small amount o f free fluid is noted. Lymph Nodes: Within normal limits. Bones: Minimal degenerative changes. IMPRESSION: 1. Normal appendix visible. 2. Status post hysterectomy and oophorectomy approximately 3 weeks ago by report. 3. 3.1 x 3 cm septated cystic lesion in the left adnexa with surrounding inflammation and a small silvina unt of free fluid. Given the patient's history resolving hematoma or abscess should be considered. 4. No evidence of nephrolithiasis or hydronephrosis. RADIATION DOSE DELIVERED: 1,184.54mGy.cm Total DLP DATA REPOSITORY: All CT scans at this facility are submitted to the National Radiology Data Registry (NRDR) Dose Index Registry (DIR) with the [employer] (A[employer]). RADIATION OPTIMIZATION: All CT scans at this facility use at least one of these dose optimization te chniques: automated exposure control; mA and/or kV adjustment per patient size (includes targeted exa ms where dose is matched to clinical indication); or iterative reconstruction.
[2020-03-30 19:21] VITALS: BP 115/64; PULSE 75; RESP 18; TEMP 36.8; O2SAT 97
--- NOTE | 2020-03-30 19:29 | DI.VRAD_ITS ---
Addendum created by George Leach MD on 03/30/2020 8:01:43 PM EDT Consultation was performed with the referring physician, Dr. Mcnamara. Patient has had both ovaries taken out approximately 3 weeks ago. The left adnexal change is likely a resolving small hematoma based on this additional history. This could be evaluated for further resolution with a pelvic ultrasound in approximately 6 weeks. Initial report created on 03/30/2020 7:29:33 PM EDT PROCEDURE INFORMATION: Exam: CT Abdomen And Pelvis With Contrast Exam date and time: 03/30/2020 7:02 PM Age: 34 years old Clinical indication: Localized; Right lower quadrant (rlq); Prior surgery; Surgery date: <1 month; Surgery type: Oophorectomy March 04 2020. Right sided lower abdominal pain TECHNIQUE: Imaging protocol: Computed tomography of the abdomen and pelvis with intravenous contrast. Radiation optimization: All CT scans at this facility use at least one of these dose optimization techniques: automated exposure control; mA and/or kV adjustment per patient size (includes targeted exams where dose is matched to clinical indication); or iterative reconstruction. Contrast material: OMNIPAQUE 350; Contrast volume: 100 ml; Contrast route: INTRAVENOUS (IV); COMPARISON: CT ABDOMEN PELVIS W 06/06/2019 9:49 PM FINDINGS: Liver: Normal. No mass. Gallbladder and bile ducts: Previous cholecystectomy. No biliary dilatation. Pancreas: Normal. No ductal dilation. Spleen: Normal. No splenomegaly. Adrenals: Normal. No mass. Kidneys and ureters: No renal calculi or hydronephrosis. No renal inflammatory changes. Subcentimeter left renal cyst. Stomach and bowel: Left abdominal small bowel loops with mild dilatation and fluid retention. This may represent a mild enteritis. No mechanical obstruction of small bowel. Large bowel loops are unremarkable. Gastric morphology is unremarkable. Appendix: A normal appendix is visible. See series 4, images 61 through 68. Intraperitoneal space: See Reproductive finding. Vasculature: Unremarkable. No abdominal aortic aneurysm. Lymph nodes: Unremarkable. No enlarged lymph nodes. Bladder: Urinary bladder is under distended and grossly normal. Reproductive: Complex left ovarian cyst measuring 3.1 by 3 cm with some septations. There is a small amount of left Supriya adnexal free fluid and inflammation. Recommend clinical correlation. Previous hysterectomy. Right ovary not visible. Bones/joints: Unremarkable. No acute fracture. Soft tissues: Unremarkable. IMPRESSION: 1. Normal appendix visible. 2. No renal calculi or renal inflammatory changes. No hydronephrosis. Subcentimeter left renal cyst. 3. Complex left adnexal cyst measuring 3.1 x 3 cm with septation. Minor surrounding inflammation and minimal adnexal fluid. Pelvic ultrasound may be warranted for further evaluation. 4. Previous hysterectomy. Right ovary not visible. 5. Mild small bowel enteritis pattern suggested. This is nonspecific. Dictated and Authenticated by: George Leach MD. Ordering:SHAYAN Awan MD
[2020-03-30 19:53] VITALS: TEMP 36.8
--- NOTE | 2020-03-30 20:07 | NUR.NOTE ---
Nursing Note: referal sent to urology 03/30/20
== END 2020-03-30 20:15 | disposition home or self-care (01) ==
PROVIDERS: Emergency Provider Physician Assistant; PCP Nurse Practitioner Family
DX: R30.0 Dysuria (principal); M54.5 Low back pain; R11.0 Nausea; Z87.442 Personal history of urinary calculi
CPT/HCPCS: 80053; 96361; 96374; 96375; 99285; 74177; 81003; 85025; J0131; J2405; J3490

== ENCOUNTER 2020-04-06 18:58 | Emergency (ER) | payer MEDICAID, SELFPAY ==
[2020-04-06] VITALS (9 sets, daily range): BP systolic 97–113; BP diastolic 22–71; PULSE 83–110; RESP 21–26; TEMP 36.4; O2SAT 94–98
--- NOTE | 2020-04-06 19:13 | W.ED.GENAD ---
Discharge Plan Disposition Patient Disposition: HOME Condition: Fair Discharge Details Chief Complaint: SOB Clinical Impression: Leukocytosis, Bilateral pneumonia, Shortness of breath, Ground glass opacity present on imaging of lung Primary Care Provider: Yudelka Cano ED Provider: Sabi Aguilar Home Meds and New Rx's Prescriptions: New levofloxacin 750 mg tablet 750 mg PO DAILY Qty: 4 RF: 0 Continued acetaminophen [Pain Relief (acetaminophen)] 500 MG tablet 2 tab PO PRN PRNRF: 0 pantoprazole 40 MG tablet,delayed release (DR/EC) 40 mg PO DAILY RF: 0 buprenorphine-naloxone [Suboxone] 1 EACH film 12 mg PO DAILY RF: 0 buspirone 15 mg Tablet 20 - 30 mg PO BID RF: 0 riboflavin (vitamin B2) [Vitamin B-2] 100 mg tablet 4,000 mg PO DAILY RF: 0 promethazine 12.5 mg tablet 12.5 mg PO Q12H PRN PRNRF: 0 lamotrigine 25 mg Tablet 100 mg PO DAILY RF: 0 paroxetine HCl 20 mg tablet 40 mg PO DAILY RF: 0 albuterol sulfate [ProAir HFA] 90 mcg/actuation Hfa Aerosol Inhaler 2 - 4 puff INHALATION Q4H PRN PRNRF: 0 Flovent HFA 110 mcg/actuation Hfa Aerosol Inhaler 2 puff INHALATION BID RF: 0 hydroxyzine pamoate 25 mg capsule 25 mg PO BID RF: 0 pregabalin 150 mg capsule 225 mg PO BID RF: 0 magnesium oxide 400 mg (241.3 mg magnesium) tablet 400 mg PO DAILY RF: 0 albuterol sulfate 2.5 mg /3 mL (0.083 %) Solution For Nebulization 2.5 mg UPD Q2H PRN PRNQty: 180 RF: 0 prochlorperazine maleate [Compazine] 10 mg tablet 10 mg PO TID PRN (Reason: nausea and vomiting) Qty: 7 RF: 0 Discharge Instructions Instructions: Levofloxacin (By mouth), Dyspnea (ED), Pneumonia (ED) Additional Instructions: Encourage water intake. Please work on stopping smoking. You have evidence of recurrent bilateral pneumonia. This is concerning for COVID-19. This test is pending. Please quarantine, wear a mask even when at home as you live with others. Please take the antibiotics as prescribed as tis may be bacterial pneumonia. Even if symptoms improve, please take the entire course. If you develop joint pain, stop the antibiotic and contact your primary care. Please continue with nebulizer and inhaler as prescribed. Please contact primary care to schedule close follow up appointment. You have a pending HIV test, we will call you with any positive results. If you develop increased work of breathing, shortness of breath, chest pain or other new/worsening syptoms please seek care urgently once again. Stand Alone Forms: PENDING COVID-19 TESTING Referrals: Yudelka Cano [Primary Care Provider] - Discharge Data Discharge Date/Time-TO BE ENTERED AT DEPARTURE: 04/07/20 00:30 Medical Decision Making Patient is a pleasant 34-year-old female presenting today with chief complaint of cough, shortness of breath. She reports this began last night. Is endorsing some discomfort in her chest. She reports this feels similar to when she is had pneumonia historically. States that she has pneumonia at least 3 times per year. Patient is an active smoker. Also has history of asthma and states that she did use her inhaler twice today with minimal improvement of her symptoms. Past medical history is also pertinent for bipolar, GERD, PTSD. States she has been having some intermittent bilateral ear pain. No sore throat. She denies any congestion. States that her cough is been slightly productive with occasional clear sputum. Patient does not drink water during the day. On exam, patient appears nontoxic. Her lungs are clear. Patient does appear dry based on mucous membrane exam but otherwise HEENT exam is without significant abnormality. Patient is tachycardic with a heart rate of 110. Patient states that this is baseline for her. However, my differential is a potential for pulmonary embolism and unable to PERC the patient out. I do feel that further evaluation with EKGand labs would be appropriate. EKG was reviewed by Dr. Lee. Patient does have findings concerning for S1, QTC, T3. With this, I do feel that follow-up with a CT for PE protocol would be appropriate. This ECG is largely unchanged from previous. Patient was being brought over by radiology staff for CT for PE. Patient escalated very quickly, was yelling at staff. She was upset by the requirements to cover her face while going through the halls as she is being treated as a PUI with her SOB and cough. Patient was yelling at myself, refusing to go over with her face covered. We did let the patient know that she did not have to cover her eyes, we would be willing to help her accomplish this in the most comfortable way possible and she escalated. Labs reviewed. Patient is leukocytosis a white count of 19.6, she is chronically elevated but this is greatly above his baseline. CMP reviewed, no significant abnormalities noted. D-dimer 803. Discussed with patient, she is agreeable to going for imaging now. FINDINGS: Pulmonary arteries: Main pulmonary artery normal in caliber. No pulmonary artery filling defects to segmental level. Evaluation more distally limited due to motion degradation of images. Aorta: Unremarkable. No aortic aneurysm. No aortic dissection. Lungs: Bilateral ground-glass lung infiltrates, different in distribution on comparison to prior study. No pulmonary vascular prominence. Pleural space: No pneumothorax. No pleural effusion. Heart: Unremarkable. No cardiomegaly. No pericardial effusion. Lymph nodes: Unremarkable. No enlarged lymph nodes. Gallbladder and bile ducts: The patient is status post cholecystectomy. No biliary ductal dilatation. Kidneys and ureters: 1.3 cm simple cyst left kidney. No hydronephrosis. Bones/joints: The spine demonstrates mild degenerative changes at multiple levels. Soft tissues: Unremarkable. IMPRESSION: 1. Bilateral ground-glass lung infiltrates. 2. No pulmonary artery embolism demonstrated to segmental level. Evaluation more distally limited. Discussed these findings with the patient. She reports that she has had similar pathology noted on imaging historically. Last had this diagnosed in November. Patient was COVID negative at that time. Patient has not had HIV testing historically that I can find. She has been clean from IVDU x 3 years. Has history of Hep C but states she received treatment. Also add on a procalcitonin which was normal. CURB-65 zero, indicates low risk. Patient I discussed treatment options. She prefers outpatient treatment I do feel that this is appropriate as she is clinically stable does not appear to be in acute respiratory distress. She has not had any wheezing or difficulty breathing here. I will hold off on steroids oxygen, because further immunocompromised. COVID-19 testing is pending. She will continue to quarantine. Will contact her with any positive results from COVID-19 testing and the pending HIV testing. We will begin the patient on antibiotics. Patient does have multiple allergies, will place her on Levaquin. First dose given here. Patient was given strict return precautions. Encourage close follow-up with primary care. All of her questions and concerns were addressed and she is in agreement this plan. HPI General Mode of arrival: ambulatory. Date/Time Provider Initiated Documentation: 04/06/20 19:12. Limitations to Documentation: no limitations. Information obtained by: patient and RN notes reviewed. History of Present Illness 34 year old F presents to the emergency department with the chief complaint of cough, wheezing, described as mild and similar to prior episodes (feels similar to ), with intensity rated at 2. Quality is described as aching, and is localized to the chest. Patient reports no radiation. Patient started experiencing this hour(s) (started last night) and it has been constant. No relieving factors improve symptom(s), Movement worsens symptoms . Patient notes chest pain, cough, fever/chills and shortness of breath; denies loss of appetite, nausea/vomiting, rash and syncope. Patient did receive the following treatments prior to arrival, none Related Data Home Medications Medication Instructions Recorded Confirmed acetaminophen [Pain Relief 2 tab PO PRN PRN 09/25/14 03/30/20 (acetaminophen)] buprenorphine-naloxone [Suboxone] 12 mg PO DAILY 10/21/17 03/30/20 pantoprazole 40 mg PO DAILY 10/21/17 03/30/20 buspirone 20 - 30 mg PO BID 10/06/19 03/30/20 Flovent HFA 2 puff INHALATION BID 12/10/19 03/30/20 albuterol sulfate [ProAir HFA] 2 - 4 puff INHALATION Q4H PRN PRN 12/10/19 03/30/20 hydroxyzine pamoate 25 mg PO BID 12/10/19 03/30/20 lamotrigine 100 mg PO DAILY 12/10/19 03/30/20 paroxetine HCl 40 mg PO DAILY 12/10/19 03/30/20 pregabalin 225 mg PO BID 12/10/19 03/30/20 promethazine 12.5 mg PO Q12H PRN PRN 12/10/19 03/30/20 riboflavin (vitamin B2) [Vitamin 4,000 mg PO DAILY 12/10/19 03/30/20 B-2] magnesium oxide 400 mg PO DAILY 12/11/19 03/30/20 albuterol sulfate 2.5 mg UPD Q2H PRN PRN #180 ml 12/14/19 03/30/20 prochlorperazine maleate 10 mg PO TID PRN #7 tab 03/30/20 [Compazine] levofloxacin 750 mg PO DAILY #4 tab 04/07/20 Previous Rx's Medication Instructions Recorded albuterol sulfate 2.5 mg UPD Q2H PRN PRN #180 ml 12/14/19 prochlorperazine maleate 10 mg PO TID PRN #7 tab 03/30/20 [Compazine] levofloxacin 750 mg PO DAILY #4 tab 04/07/20 Allergies Allergy/AdvReac Type Severity Reaction Status Date / Time doxycycline Allergy Swelling/Ed Unverified 04/06/20 22:17 brynn Penicillins Allergy Anaphylaxsi Unverified 04/06/20 22:17 s azithromycin AdvReac Nausea Unverified 04/06/20 22:17 calcium carbonate [From DHEA] AdvReac Swelling/Ed Unverified 04/06/20 22:17 brynn calcium phosphate,dibasic AdvReac Swelling/Ed Unverified 04/06/20 22:17 [From DHEA] brynn ketorolac AdvReac Nausea Unverified 04/06/20 22:17 latex AdvReac Skin Rash Unverified 04/06/20 22:17 nitrofurantoin AdvReac muscles Unverified 04/06/20 22:17 [From Macrobid] stiffen up all over body nitrofurantoin AdvReac muscles Unverified 04/06/20 22:17 macrocrystalline stiffen up [From Macrobid] all over body prasterone (DHEA) [From DHEA] AdvReac Swelling/Ed Unverified 04/06/20 22:17 brynn silver AdvReac Skin Rash Unverified 04/06/20 22:17 [From Tegaderm AG Mesh] tramadol AdvReac Urinary Unverified 04/06/20 22:17 retention General Stated Complaint: SOB JAN: 3 Review of Systems Constitutional Constitutional: Reports as per HPI and Denies headache(s) Eyes Eyes: Reports as per HPI, Denies eye discharge and Denies irritation ENT Ears, Nose, Mouth, and Throat: Reports as per HPI and Denies headache(s) Cardiovascular Cardiovascular: Reports as per HPI, Denies chest pain and Denies dyspnea Respiratory Respiratory: Reports as per HPI and Denies dyspnea Gastrointestinal Gastrointestinal: Reports as per HPI, Denies abdominal pain, Denies change in bowel habits, Denies nausea and Denies vomiting Integumentary/Breasts Skin/Breast: Reports as per HPI and Denies rash Neurologic Neurologic: Reports as per HPI and Denies headache(s) PFSH Medical History Asthma (Chronic) Bipolar disease, chronic (Chronic) Patient has been hospitalized for suicidal ideation the past currently not taking any medications. Is on disability for mental health issues Chronic pelvic pain in female (Acute) [place] [facility] [place]. Gabapentin 300 mg 3 times a day as needed GERD (gastroesophageal reflux disease) (Chronic) Headache (Acute) Imitrex as needed Hearing loss (Acute) Right side conduction loss cholecystectomy treated with titanium insert History of opioid abuse (Chronic) Take Suboxone 12 mg SL daily x3yrs. Weekly dosing given at [facility] in [facility] PTSD (post-traumatic stress disorder) (Acute) Currently not in counseling Right knee pain (Acute) Awaiting ACL reconstruction Tobacco use (Acute) Has used Chantix off-and-on. Surgical History H/O right knee surgery (Acute) H/O total vaginal [place] (Acute[place] [facility] [place]agia and dysmenorrhea. Ovaries conserved. Diagnosis adenomyosis History of cholecystectomy (Chronic) History of laparoscopy (Chronic) 2012. 6 cm right ovarian cyst drained History of tubal ligation (Chronic) [facility] Hx of tonsillectomy (Chronic) Social History (Updated 12/11/19 @ 07:34 by Balaji Levy) Smoking/Tobacco Use Status: Current every day Tobacco Type: cigarettes Quit status: considering quitting Counseling given: provider counseling and other Details: Taking Chantix in order to quit Alcohol Intake: never Drug use: Occasionally Substance use type: marijuana Household members: other Details: Has roommate. Boyfriend is named Brian. All 4 children adopted out. Number of Children: 4 current occupation: Unemployed. Receives disability for mental health issues Do you feel safe at home: Yes Do you feel safe in your relationship?: Yes Additional Social history: Lives in [place], household includes boyfriend and other roommates including a baby nephew Exam Const General: cooperative, healthy appearing, comfortable, no acute distress, well developed and well groomed Nutritional Appearance: average body habitus and well nourished Orientation: alert and awake [facility] Head: normal to inspection, normocephalic and atraumatic Ears: hearing grossly normal bilaterally, external ears normal and TM's normal bilaterally General nose exam: external nose normal and nares normal Face and sinus: normal facial exam, sinuses nontender and face symmetric Mouth: oral mucosae normal, lip normal, tongue normal, oropharynx normal and moist mucous membranes Teeth and gingiva: dentition normal Throat: posterior oropharynx normal, tonsils normal and uvula midline Eyes General: appearance normal, both eyes and all related structures Neck Neck: normal visual inspection, full ROM, no lymphadenopathy and no meningeal signs Resp Effort & Inspection: normal respiratory effort, able to speak in complete sentences and no respiratory distress Auscultation: clear to auscultation bilaterally, no rales, no rhonchi and no wheezes Cardio Rate: regular rate Rhythm: regular rhythm Heart Sounds: S1 normal and S2 normal GI Inspection: normal to inspection Palpation: soft, no hepatosplenomegaly, no guarding and nontender Percussion: normal to percussion Auscultation: normal bowel sounds Skin General skin exam: no rashes or lesions noted Neuro General: patient alert and patient awake Cognition: normal cognition Speech: speech normal Gait: normal gait Extrem General: normal to inspection, capillary refill normal, no pedal edema, no calf tenderness and normal gait Psych Appearance: grossly normal and well kempt Mental Status: mental status grossly normal Speech and Movement: speech and movement normal Course Vital Signs Vital signs: Vital Signs Temperature 36.4 C L 04/06/20 19:04 Pulse 110 H 04/06/20 19:04 Respiratory Rate 22 04/06/20 19:04 Blood Pressure 111/71 04/06/20 19:04 Pulse Oximetry 97 04/06/20 19:04 Temperature 36.4 C L 04/06/20 19:04 Temperature Source Tympanic 04/06/20 19:04 Pulse 110 H 04/06/20 19:04 Respiratory Rate 22 04/06/20 19:07 Respiratory Effort 04/06/20 19:07 Respiratory Depth Shallow 04/06/20 19:07 Respiratory Pattern Tachypnea 04/06/20 19:07 Blood Pressure 111/71 04/06/20 19:04 Pulse Oximetry 97 08/19/20 19:04 Oxygen Delivery Method Room Air 04/06/20 19:04 Oxygen Flow Rate 0 04/06/20 19:04 Pain Level 2 04/06/20 19:04
--- NOTE | 2020-04-06 19:30 | RT.EKG_ITS ---
APPROVED REPORT Exam: Resting ECG Patient Location: E HR:87 bpm ECG Measurements Heart Rate 87 AXIS MS 132 P 27 QRSd 87 QRS 43 QT 350 T 16 QTc 422 Conclusion EKG 19: 58 Rate 87, sinus rhythm, less than 1 mm of elevation in V1 and V2, there is also a slightly broad S wav e in the terminal component noted in lead I, Q wave in lead II and lead III, inverted T wave in lead III. Review of prior EKGs demonstrate that these appear to be chronic findings and not acute. No ev idence of STEMI. No evidence of significant right heart strain.
--- NOTE | 2020-04-06 20:00 | DI.CT_ITS ---
EXAM: CT CHEST PE CTA CLINICAL HISTORY: SOB, concerning ECG changes. TECHNIQUE: Imaging Protocol: Axial CT angiography was performed with multi-slice acquisition and mu lti-planar and/or 3D reconstructions. CONTRAST MATERIAL: Intravenous: Omnipaque 350 Contrast volume:structured data in ml COMPARISON: CT CT ABDOMEN PELVIS W from 03/30/2020 CR,XR XR PORTABLE CHEST AP from 04/06/2020 FINDINGS: Pulmonary Arteries: No evidence of filling defect to suggest pulmonary emboli. The exam is somewhat limited by respiratory motion. Tracheobronchial tree: Patent where visualized. Mediastinum and Jolene: No dominant adenopathy or fluid collection. Pulmonary parenchyma: There are diffuse bilateral ground-glass infiltrates in both upper and lower lo bes with some sparing of the periphery. There is no focal area consolidation Pleura: No effusion or pneumothorax. Heart: The heart is not dilated. No coronary artery calcifications are seen. Aorta: Thoracic aorta non-dilated. Upper abdomen: Status post cholecystectomy. Bones: Normal. Tubes, Catheters, and Lines: IMPRESSION: No evidence of pulmonary embolism. Diffuse bilateral pulmonary infiltrates. RADIATION DOSE DELIVERED: 568.28mGy.cm Total DLP DATA REPOSITORY: All CT scans at this facility are submitted to the National Radiology Data Registry (NRDR) Dose Index Registry (DIR) with the [employer] (ACR). RADIATION OPTIMIZATION: All CT scans at this facility use at least one of these dose optimization te chniques: automated exposure control; mA and/or kV adjustment per patient size (includes targeted exa ms where dose is matched to clinical indication); or iterative reconstruction.
[2020-04-06 20:15] LABS: Abs Immature Grans 0.07 10^3/uL (0.0-0.06); Absolute Basophil Count 0.04 10^3/uL (0.0-0.2); Absolute Lymphocyte Count 4.36 10^3/uL (1.2-3.4); Basophils % 0.2; HCT 38.5 % (36.0-46.0); HGB 12.6 g/dL (11.2-15.7); Immature Grans % 0.4; Lymphocytes % 22.2; MCH 27.4 pg (27.0-33.0); MCHC 32.7 % (32.0-36.0); MCV 83.7 fL (80-95); MPV 9.5 fL (8.0-11.0); Monocytes % 3.3; Neutrophils % 73.9; Nucleated RBC 0 %; Platelet Count 348 10^3/uL (130-400); RDW 14.1 % (11.7-14.6); WBC 19.64 10^3/uL (4.4-10.8)
[2020-04-06 20:16] LABS: Absolute Monocyte Count 0.65 10^3/uL (0.1-0.8); Absolute Neutrophil Count 14.51 10^3/uL (1.2-6.7)
--- NOTE | 2020-04-06 20:20 | DI.RAD_ITS ---
EXAM: XR PORTABLE CHEST AP CLINICAL HISTORY: cough TECHNIQUE: 2D digital imaging was performed. COMPARISON: No exams were available for comparison FINDINGS: The exam is limited by poor pulmonary inflation and penetration. There is also mild respiratory jose on. Leads overlie the chest. The heart size is within normal limits for projection. There is a que stion of increased interstitial markings and vascular prominence bilaterally. The findings could be secondary to technique however interstitial infiltrates cannot be excluded. IMPRESSION: Question of interstitial infiltrates. Limited exam. DATA REPOSITORY: RADIATION DOSE DELIVERED:
[2020-04-06] MEDS: Normal Saline - Diluent 50 ML VIAL IV (20:32)
[2020-04-06 20:33] LABS: ALT 16 U/L (14-59); AST 25 U/L (15-37); Albumin 3.1 g/dL (3.4-5.0); Alkaline Phosphatase 60 U/L (46-116); Anion Gap 9.8 mmol/L (3-11); BUN 4 mg/dL (7-18); Bilirubin, Total 0.5 mg/dL (0.2-1.0); CO2 27.2 mmol/L (21.0-32.0); CREATININE 0.64 mg/dL (0.55-1.02); Calcium 8.4 mg/dL (8.5-10.1); Chloride 103 mmol/L (98-107); Glucose 88 mg/dL (74-106); Magnesium 1.9 mg/dL (1.8-2.4); Potassium 3.8 mmol/L (3.5-5.1); Sodium 140 mmol/L (136-145); Total Protein 7.1 g/dL (6.4-8.2)
[2020-04-06] MEDS: Omnipaque 350 MG/ML 100 ML BTL IJ (20:33)
--- NOTE | 2020-04-06 20:33 | DI.VRAD_ITS ---
PROCEDURE INFORMATION: Exam: XR Chest, 1 View Exam date and time: 04/06/2020 8:13 PM Age: 34 years old Clinical indication: Cough TECHNIQUE: Imaging protocol: XR of the chest Views: 1 view. Other technique: Limited due to motion artifact. COMPARISON: CT CHEST PE CTA 12/10/2019 10:30 PM FINDINGS: Lungs: At least minimal interstitial prominence. Interstitial infiltrate cannot be excluded in right lung. Pleural space: Unremarkable. No pleural effusion. No pneumothorax. Heart/Mediastinum: Unremarkable. No cardiomegaly. Bones/joints: Unremarkable. IMPRESSION: 1. Limited study. Recommend obtaining PA and lateral chest x-ray study if clinically feasible. 2. There is at least minimal interstitial prominence which could have multiple possible etiologies. 3. Interstitial infiltrate cannot be excluded in right lung. Dictated and Authenticated by: Paulie Hart MD. Ordering:LALY Celestin MD
[2020-04-06 20:36] LABS: Troponin I < 0.05 ng/mL (<0.06)
[2020-04-06 21:19] LABS: D-Dimer 803 ng/mlFEU (<500)
[2020-04-06] MEDS: Lactated Ringers 1,000 ML 1000 ML IV (22:07)
--- NOTE | 2020-04-06 22:31 | DI.VRAD_ITS ---
PROCEDURE INFORMATION: Exam: CT Angiography Chest With Contrast Exam date and time: 04/06/2020 9:51 PM Age: 34 years old Clinical indication: Shortness of breath; Patient HX: SOB TECHNIQUE: Imaging protocol: Computed tomographic angiography of the chest with intravenous contrast. 3D rendering (Not supervised by radiologist): MIP and/or 3D reconstructed images were created by the technologist. Radiation optimization: All CT scans at this facility use at least one of these dose optimization techniques: automated exposure control; mA and/or kV adjustment per patient size (includes targeted exams where dose is matched to clinical indication); or iterative reconstruction. Contrast material: OMNIPAQUE 350; Contrast volume: 90 ml; Contrast route: INTRAVENOUS (IV); COMPARISON: CT CHEST PE CTA 12/10/2019 10:30 PM FINDINGS: Pulmonary arteries: Main pulmonary artery normal in caliber. No pulmonary artery filling defects to segmental level. Evaluation more distally limited due to motion degradation of images. Aorta: Unremarkable. No aortic aneurysm. No aortic dissection. Lungs: Bilateral ground-glass lung infiltrates, different in distribution on comparison to prior study. No pulmonary vascular prominence. Pleural space: No pneumothorax. No pleural effusion. Heart: Unremarkable. No cardiomegaly. No pericardial effusion. Lymph nodes: Unremarkable. No enlarged lymph nodes. Gallbladder and bile ducts: The patient is status post cholecystectomy. No biliary ductal dilatation. Kidneys and ureters: 1.3 cm simple cyst left kidney. No hydronephrosis. Bones/joints: The spine demonstrates mild degenerative changes at multiple levels. Soft tissues: Unremarkable. IMPRESSION: 1. Bilateral ground-glass lung infiltrates. 2. No pulmonary artery embolism demonstrated to segmental level. Evaluation more distally limited. Dictated and Authenticated by: Paulie Hart MD. Ordering:LALY Celestin MD
[2020-04-06 23:16] LABS: Lactate 0.6 mmol/L (0.6-1.4)
[2020-04-06 23:55] LABS: Procalcitonin 0.1 ng/mL
[2020-04-07] MEDS: levoFLOXacin 500 MG, levoFLOXacin 250 MG 750 MG PO (00:33)
[2020-04-08 10:21] LABS: HIV-1/2 Ag & Ab Screen Negative (Negative)
[2020-04-11 18:00] LABS: SARS-CoV-2 RNA Undetected (Undetected); SARS-CoV-2 Specimen Source Nasopharynx
--- NOTE | 2020-04-13 09:09 | NUR.NOTE ---
message left for pt to call regarding test results Nursing Note:
--- NOTE | 2020-04-13 09:18 | NUR.NOTE ---
pt called back-advised her of undetected/negative COVID-19 result Nursing Note:
== END 2020-04-07 00:30 | disposition home or self-care (01) ==
PROVIDERS: Emergency Provider Physician Assistant; PCP Nurse Practitioner Family
DX: J18.9 Pneumonia, unspecified organism (principal); R91.8 Other nonspecific abnormal finding of lung field; F31.9 Bipolar disorder, unspecified; Z87.01 Personal history of pneumonia (recurrent); Z03.818 Encounter for observation for suspected exposure to other biological agents ruled out; F17.210 Nicotine dependence, cigarettes, uncomplicated
CPT/HCPCS: 36415; 71275; 80053; 84145; 87389; 93005; 96360; 96361; 99285; U0003; 71045; 83605; 83735; 84484; 85025; 85379; 93010; J3490